=== PATIENT | female | born 1975 | race Caucasian/White ===

== ENCOUNTER 2023-07-27 15:26 | Emergency (ER) | payer OTHER, SELFPAY ==
--- NOTE | 2023-07-27 15:31 | ED_ITS ---
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 Patient did not have any tongue trauma, urinary or bowel incontinence, she states sometimes she feels this way when she is anxious. She denies chest pain, shortness of breath, fevers, chills, headache, vision changes, dizziness, weakness, nausea, vomiting, abdominal pain, changes in urination or bowel habits. Not suicidal or homicidal. Feels safe at home. Related Data Allergies Allergy/AdvReac Type Severity Reaction Status Date / Time Unable to Assess Allergy Unverified 07/27/23 15:26 Review of Systems 2 Review of Systems: Yes all other systems are reviewed and are negative PMFSH Past Medical History Attestation statement: The following information was validated with the patient. Source: old records reviewed and nursing notes reviewed Social History Social History Advance Directives: No Advance Directives Information Provided: No Physical Exam ED Vital Signs: Vital Signs - 24 hr 07/27/23 15:37 Temperature 98.6 F Pulse Rate 75 Respiratory Rate 18 Blood Pressure 118/66 Pulse Oximetry 98 Oxygen Delivery Method Room Air BMI result Body Mass Index 37.2 vss Appearance: Alert.? Oriented X3.? No acute distress.? Head: Normocephalic, atraumatic, no step-offs or deformities Eyes: Pupils equal, round and reactive to light.? ENT: Pharynx normal.? Neck: Normal inspection.? Neck supple.? CVS: Normal heart rate and rhythm.? Pulses normal.? Respiratory: No respiratory distress.? Breath sounds normal.? Abdomen: Soft and nontender.? Skin: Skin warm and dry.? Normal skin color.? Normal skin turgor.? Extremities: No lower extremity edema.? No calf ttp. 5/5 strength to bilateral upper and lower extremities Neuro: Oriented X 3.? No motor deficit.? No sensory deficit. CN 2-12 intact Course Reevaluation(s) Reevaluation #1: CBC no acute findings requiring intervention. Chemistry no acute findings. Normal lactic. Normal CPK. Unlikely acute epileptic seizure. Beta hCG negative. There was no head trauma therefore no indication for head CT. Patient feeling well. No evidence of seizures while here in the department. Patient states she is likely anxious Educated patient on diagnosis and treatment plan, answered all question, patient verbalizes understanding. At this time patient will be discharged home, advised to return with new or worsening symptoms. Educated on worrisome signs and symptoms and when to return. At this time I feel comfortable discharge home. Time: 17:15 Medications Administered Discontinued Medications Generic Name Dose Route Start Last Admin Trade Name Freq PRN Reason Stop Dose Admin Lorazepam 1 mg 07/27/23 15:30 07/27/23 15:44 Lorazepam 1 Mg Tablet PO 07/27/23 15:31 1 mg ONCE ONE Administration Medical Decision Making Medical Decision Making [facility] Narrative: 47-year-old female presents with concerns that she could have had a pseudo- seizure. No trauma associated with it. No postictal state. Physical exam benign. Neuro nonfocal. Alert and oriented x4. Likely anxiety versus panic versus pseudo-seizure versus seizure. Unlikely intracranial hemorrhage, stroke, posterior stroke, electrolyte abnormalities, infection. Plan at this time labs. Ativan to raise seizure threshold. Differential Diagnosis Differential Diagnoses: The differential diagnosis associated with the presentation includes Likely anxiety versus panic versus pseudo-seizure versus seizure. Unlikely intracranial hemorrhage, stroke, posterior stroke, electrolyte abnormalities, infection. Admission/Observation Consideration of admission/observation: Escalation of care including admission/observation considered Lab Data [facility] Lab Attestation statement: I reviewed the patient's lab results. 07/27/23 16:06 07/27/23 16:06 Labs: Lab Results 07/27/23 Range/Units 16:06 WBC 5.4 (4.8-10.8) X10*3/uL RBC 4.24 (4.20-5.50) X10*6/uL Hgb 12.6 (12.0-16.0) g/dl Hct 36.8 L (37.0-47.0) % MCV 86.8 (80.0-98.0) fL MCH 29.7 (27.0-33.0) pg MCHC 34.2 (31.0-35.0) g/dl RDW 13.0 (11.0-16.0) % Plt Count 118 L (160-400) X10*3/uL MPV 11.3 (9.4-12.3) fL Immature Gran % (Auto) 0.4 (0.0-0.4) % Neut % (Auto) 57.2 (45-73) % Lymph % (Auto) 33.6 (20-40) % Sharkey % (Auto) 7.1 (2-11) % Eos % (Auto) 1.1 (0-4) % Baso % (Auto) 0.6 (0-2) % Lymph # (Auto) 1.8 (1.2-4.9) X10*3/uL Sharkey # (Auto) 0.4 (0.1-1.2) X10*3/uL Eos # (Auto) 0.1 (0.0-0.4) X10*3/uL Baso # (Auto) 0.0 (0.0-0.2) X10*3/uL Abs Immat Gran (auto) 0.02 (0.00-0.03) X10*3/uL Absolute Neuts (auto) 3.1 (2.0-8.3) x10*3/uL Absolute Nucleated RBC 0.000 (0.0-0.012) X10*3/uL Nucleated RBC % (auto) 0.0 (0.0-0.2) /100WBC Sodium 143 (135-145) mmol/L Potassium 4.1 (3.3-5.1) mmol/L Chloride 108 (96-108) mmol/L Carbon Dioxide 28 (22-29) mmol/L Anion Gap 11 L (12-20) BUN 12 (9-16) mg/dL Creatinine 0.75 (0.5-1.4) mg/dL Estim Creat Clear Calc 107.0 Estimated GFR > 60 Random Glucose 108 (60-115) mg/dL Lactic Acid 1.1 (0.5-2.0) mmol/L Calcium 9.2 (8.4-10.2) mg/dL Magnesium 1.8 (1.6-2.6) mg/dL Total Bilirubin 0.5 (0.0-1.0) mg/dL AST 19 (5-31) U/L ALT 19 (0-31) U/L Alkaline Phosphatase 77 (39-117) U/L Total Creatine Kinase 63 (26-140) U/L Total Protein 6.6 (6.5-8.0) g/dL Albumin 3.8 (3.5-5.0) g/dL Lipase 33 (8-78) U/L Beta HCG, Quant < 2 mIU/mL Tests considered The following testing was considered but not selected: No associated trauma no indication for head CT peer Chronic Conditions Patient?s care impacted by: Other (Anxiety) Critical Care Time Critical Care Time Critical Care Time: No Discharge Plan Discharge Clinical Impression: Anxiety, Psychogenic nonepileptic seizure Patient Disposition: Home, Self-Care Instructions: Anxiety (ED) Additional Instructions: Take your medications as prescribed. If you were prescribed antibiotics today, it is important that you take your medication to their entirety, do not skip any doses, do not finish them early. Follow-up with your primary care provider this week. Return to the emergency department with new or worsening symptoms. Such as fevers, chills, chest pain, shortness of breath, nausea, vomiting, dizziness, headache, vision changes, lethargy In case of emergency call 911 Referrals: Physician,None [Primary Care Provider] - 2 days [facility] [place]Provider Group] - 2 days Stand Alone Forms: Work/School Release
[2023-07-27 15:37] VITALS: BP 118/66; BP 128/76; PULSE 75; PULSE 78; RESP 18; TEMP 37; O2SAT 97; O2SAT 98; BMI 37.2
[2023-07-27] MEDS: LORazepam 1 MG TABLET PO (15:44)
[2023-07-27 16:10] LABS: MANUAL DIFF FLAG NO
[2023-07-27 16:14] LABS: Basophils Percent Auto 0.6 % (0-2); Eosinophils Absolute Auto 0.1 X10*3/uL (0.0-0.4); Eosinophils Percent Auto 1.1 % (0-4); Hematocrit 36.8 % (37.0-47.0); Hemoglobin 12.6 g/dl (12.0-16.0); Imm Gran Abs Auto 0.02 X10*3/uL (0.00-0.03); Imm Gran Pct Auto 0.4 % (0.0-0.4); Lymphocytes Absolute Auto 1.8 X10*3/uL (1.2-4.9); Lymphocytes Percent Auto 33.6 % (20-40); Mean Corpuscular HGB Conc 34.2 g/dl (31.0-35.0); Mean Corpuscular Hemoglobin 29.7 pg (27.0-33.0); Mean Corpuscular Volume 86.8 fL (80.0-98.0); Mean Platelet Volume 11.3 fL (9.4-12.3); Monocytes Absolute Auto 0.4 X10*3/uL (0.1-1.2); Monocytes Percent Auto 7.1 % (2-11); Neutrophils Absolute Auto 3.1 x10*3/uL (2.0-8.3); Neutrophils Percent Auto 57.2 % (45-73); Platelet Count 118 X10*3/uL (160-400); Red Blood Count 4.24 X10*6/uL (4.20-5.50); White Blood Count 5.4 X10*3/uL (4.8-10.8)
[2023-07-27 16:21] LABS: Lactic Acid 1.1 mmol/L (0.5-2.0)
[2023-07-27 16:32] LABS: Alanine Aminotransferase 19 U/L (0-31); Albumin Level 3.8 g/dL (3.5-5.0); Alkaline Phosphatase 77 U/L (39-117); Anion Gap 11 (12-20); Aspartate Amino Transferase 19 U/L (5-31); Bilirubin Total 0.5 mg/dL (0.0-1.0); Blood Urea Nitrogen 12 mg/dL (9-16); Calcium 9.2 mg/dL (8.4-10.2); Carbon Dioxide 28 mmol/L (22-29); Chloride 108 mmol/L (96-108); Estimated Glomerular Filt Rate > 60; Glucose Random 108 mg/dL (60-115); Lipase 33 U/L (8-78); Magnesium 1.8 mg/dL (1.6-2.6); Potassium 4.1 mmol/L (3.3-5.1); Sodium 143 mmol/L (135-145); Total Protein 6.6 g/dL (6.5-8.0)
[2023-07-27 16:33] LABS: HCG Quantitative < 2 mIU/mL
== END 2023-07-27 18:01 | disposition home or self-care (01) ==
PROVIDERS: Physician Assistant; Emergency Provider Emergency Medicine
DX: R56.9 Unspecified convulsions (principal); F41.9 Anxiety disorder, unspecified
CPT/HCPCS: 36415; 80053; 82550; 83605; 83690; 83735; 84702; 85025; 99282; 99283

== ENCOUNTER 2023-08-29 23:49 | Emergency (ER) | payer SELFPAY ==
--- NOTE | ~2023-08-29 | XR_ITS ---
EXAMINATION: XR FOOT, LEFT CLINICAL INFORMATION: Left foot COMPARISON: None available. TECHNIQUE: AP, lateral, and oblique views of the left foot. FINDINGS: No fractures are seen. Some mild degenerative changes are present at the TMT joints. No ankle joint effusion is seen. A small plantar calcaneal spur is present. XR/XR foot LT 2V IMPRESSION: Mild degenerative changes as described above. No acute finding.
[2023-08-29 23:58] VITALS: BP 132/65; PULSE 94; RESP 16; TEMP 36.6; O2SAT 95; BMI 33.3
--- NOTE | 2023-08-30 | ECG_ITS ---
Test Reason : CESTPAIN Blood Pressure : / mmHG Vent. Rate : 069 BPM Atrial Rate : 069 BPM P-R Int : 120 ms QRS Dur : 096 ms QT Int : 424 ms P-R-T Axes : -03 005 007 degrees QTc Int : 454 ms Normal sinus rhythm Normal ECG No previous ECGs available Referred By: Generic ED Physician Electronically Signed By:LAURE BURNETT MD
--- NOTE | 2023-08-30 01:41 | ED.GENADULT ---
HPI - General Adult General Chief complaint: General Medical Stated complaint: L Foot pain/?Anxiety Time Seen by Provider: 08/30/23 01:21 Source: patient Mode of arrival: ambulatory Limitations: no limitations History of Present Illness HPI narrative: Patient with history of minor fracture left foot in 05/19 since then she been complaining of pain also patient has increased stress as her has to go to [facility] months no recent fall or injury Related Data Previous Rx's Medication Instructions Recorded ibuprofen 600 mg tablet 600 mg PO Q6H PRN fever or pain 08/30/23 #30 tabs prednisone 20 mg tablet 40 mg (2 x 20 mg) PO DAILY #10 tabs 08/30/23 Allergies Allergy/AdvReac Type Severity Reaction Status Date / Time seafood Allergy Anaphylaxis Verified 08/29/23 23:57 Review of Systems Review of Systems: Yes all other systems are reviewed and are negative [facility] Social History Social History Advance Directives: No Advance Directives Information Provided: No Physical Exam ED Vital Signs: Vital Signs - 24 hr 08/29/23 23:58 Temperature 98 F Pulse Rate 94 Respiratory Rate 16 Blood Pressure 132/65 Pulse Oximetry 95 Oxygen Delivery Method Room Air BMI result Body Mass Index 33.3 Appearance: Alert. Oriented X3. No acute distress. Neck: Normal inspection. Neck supple. CVS: Normal heart rate and rhythm. Pulses normal. Respiratory: No respiratory distress. Equal air entry bilateral, Abdomen: Soft and nontender. Bowel sounds are present, Skin: Skin warm and dry. Normal skin color. Normal skin turgor. Extremities: No lower extremity edema. No calf tenderness Neuro: Oriented X 3. No motor deficit. Extrem Ankle/foot/toe images: 1. Tenderness at the base clinically plantar fasciitis Medical Decision Making Medical Decision Making MDM Narrative: Patient's x-ray negative fracture clinically patient has plantar fasciitis advised to do stretching exercise of the plantar fascia will give course of prednisone and ibuprofen advised to follow with orthopedic if pain does not get better patient refused to get the injection at the site of pain x-ray negative for fracture Independent Interpretation I performed an independent interpretation of an: Plain X-Ray Radiology Impression Discussion of test interpretation with radiology: I have reviewed the radiologist's reading. Discharge Plan Discharge Clinical Impression: Plantar fasciitis of left foot Patient Disposition: Home, Self-Care Instructions: Plantar Fasciitis (ED) Additional Instructions: Plantar stretching exercise as advised Pain medication and prednisone as prescribed Follow-up with orthopedics if not better Prescriptions: New prednisone 20 mg tablet 40 mg PO DAILY Qty: 10 0RF ibuprofen 600 mg tablet 600 mg PO Q6H PRN (Reason: fever or pain) Qty: 30 0RF Referrals: Darrell Land MD [Physician] - 2 weeks
[2023-08-30 02:12] VITALS: BP 107/60; PULSE 56; RESP 17; TEMP 36.6; O2SAT 98
[2023-08-30] MEDS: Ibuprofen 600 MG TABLET PO (02:14)
[2023-08-30] MEDS: dexAMETHasone 2 MG TABLET 10 MG PO (02:14)
[2023-08-30 02:35] VITALS: BP 107/60; PULSE 56; RESP 17; TEMP 36.6; O2SAT 98
== END 2023-08-30 02:35 | disposition home or self-care (01) ==
PROVIDERS: Emergency Provider Internal Medicine
DX: M72.2 Plantar fascial fibromatosis (principal); M79.672 Pain in left foot; F41.1 Generalized anxiety disorder; F43.0 Acute stress reaction; R07.89 Other chest pain
CPT/HCPCS: 73620; 93005; 99283; 99285; J8540

== ENCOUNTER → 2023-08-30 00:02 | Outpatient (BNV) | payer SELFPAY | PROVIDERS: Emergency Provider Internal Medicine; Visit Provider Internal Medicine Cardiovascular Disease | DX: R07.9 Chest pain, unspecified (principal) | CPT/HCPCS: 93010 ==

== ENCOUNTER 2023-09-08 17:20 | Emergency (ER) | payer MEDICAID, SELFPAY ==
--- NOTE | ~2023-09-08 | US_ITS ---
EXAMINATION: US ABDOMEN LIMITED CLINICAL INFORMATION: Epigastric pain.. COMPARISON: None available. TECHNIQUE: Real-time imaging of the right upper quadrant abdominal viscera. FINDINGS: PANCREAS: Normal. LIVER: Normal. The liver is normal in size. The liver contour is normal. Parenchymal echogenicity is normal relative to the adjacent kidney. No focal hepatic lesion. There is no intrahepatic biliary duct dilatation seen. GALLBLADDER: Normal. The gallbladder is physiologically distended without evidence of stones, sludge, polyps, wall thickening or pericholecystic fluid. COMMON BILE DUCT: Normal in caliber measuring 0.3 cm in diameter. RIGHT KIDNEY: Normal. No hydronephrosis. No renal calculi or focal parenchymal lesions. The kidney measures 9.5 cm in maximum dimension. FREE FLUID: None. US/US abdomen limited IMPRESSION: No acute sonographic abnormalities in the right upper quadrant.
[2023-09-08 18:06] VITALS: BP 124/68; PULSE 77; RESP 16; TEMP 36.6; O2SAT 98; BMI 33.3
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
--- NOTE | 2023-09-08 18:21 | ECG_ITS ---
Test Reason : EPIGASTRIC Blood Pressure : / mmHG Vent. Rate : 061 BPM Atrial Rate : 061 BPM P-R Int : 136 ms QRS Dur : 088 ms QT Int : 412 ms P-R-T Axes : 012 000 003 degrees QTc Int : 414 ms Normal sinus rhythm Normal ECG When compared with ECG of 30-AUG-2023 00:02, No significant change was found Referred By: Tran Reilly Electronically Signed By:Fernie Head
[2023-09-08 18:50] LABS: MANUAL DIFF FLAG NO
[2023-09-08 18:56] LABS: Appearance Urine Cloudy; Color Urine Yellow; Glucose Urine UA Negative (Negative); Leukocyte Esterase Urine Small (1+) (Negative); Nitrite Urine Negative (Negative); PH 5.5 (5.0-9.0); UMIC TRIGGER UACC YES; Urine Blood Negative (Negative); Urine Ketones Negative (Negative); Urine Protein Negative (Neg-Trace)
[2023-09-08 19:01] LABS: Bacteria Urine 4+ (None Seen); Hyaline Casts Urine 0-2 /LPF (0-2); RBC Urine 0-2 /HPF (0-2); UACC Culture Trigger YES
[2023-09-08 19:04] LABS: Basophils Percent Auto 0.6 % (0-2); Eosinophils Absolute Auto 0.1 X10*3/uL (0.0-0.4); Eosinophils Percent Auto 1.4 % (0-4); Hematocrit 37.6 % (37.0-47.0); Hemoglobin 13.3 g/dl (12.0-16.0); Imm Gran Abs Auto 0.02 X10*3/uL (0.00-0.03); Imm Gran Pct Auto 0.3 % (0.0-0.4); Lymphocytes Absolute Auto 2.2 X10*3/uL (1.2-4.9); Lymphocytes Percent Auto 33.6 % (20-40); Mean Corpuscular HGB Conc 35.4 g/dl (31.0-35.0); Mean Corpuscular Hemoglobin 30.2 pg (27.0-33.0); Mean Corpuscular Volume 85.5 fL (80.0-98.0); Mean Platelet Volume 10.9 fL (9.4-12.3); Monocytes Absolute Auto 0.5 X10*3/uL (0.1-1.2); Monocytes Percent Auto 6.9 % (2-11); Neutrophils Absolute Auto 3.8 x10*3/uL (2.0-8.3); Neutrophils Percent Auto 57.2 % (45-73); Platelet Count 152 X10*3/uL (160-400); Red Cell Distribution Width 12.7 % (11.0-16.0); White Blood Count 6.6 X10*3/uL (4.8-10.8)
[2023-09-08 19:14] LABS: Lactic Acid 0.7 mmol/L (0.5-2.0)
[2023-09-08 19:18] LABS: Ethanol < 10 mg/dL
[2023-09-08 19:25] LABS: Alanine Aminotransferase 16 U/L (0-31); Albumin Level 4.1 g/dL (3.5-5.0); Alkaline Phosphatase 73 U/L (39-117); Anion Gap 13 (12-20); Aspartate Amino Transferase 22 U/L (5-31); Bilirubin Direct 0.2 mg/dL (0.0-0.5); Bilirubin Total 0.5 mg/dL (0.0-1.0); Blood Urea Nitrogen 13 mg/dL (9-16); Calcium 9.8 mg/dL (8.4-10.2); Carbon Dioxide 23 mmol/L (22-29); Chloride 108 mmol/L (96-108); Creatinine Clr Calc Pharmacy 94.6; Estimated Glomerular Filt Rate > 60; Glucose Random 94 mg/dL (60-115); Lipase 43 U/L (8-78); Magnesium 2.1 mg/dL (1.6-2.6); Potassium 3.9 mmol/L (3.3-5.1); Sodium 140 mmol/L (135-145); Total Protein 7.1 g/dL (6.5-8.0)
[2023-09-08 19:46] LABS: HCG Quantitative < 2 mIU/mL
[2023-09-08 20:44] VITALS: BP 103/46; PULSE 63; RESP 18; TEMP 36.6; O2SAT 98
[2023-09-08] MEDS: levETIRAcetam 500 MG TABLET PO (22:31)
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
[2023-09-08 23:02] VITALS: BP 109/54; PULSE 61; RESP 12; TEMP 36.4; O2SAT 98
[2023-09-09 05:25] VITALS: BP 93/52; PULSE 54; RESP 14; TEMP 36.6; O2SAT 99
[2023-09-09] MEDS: levETIRAcetam 500 MG TABLET PO (09:11)
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
[2023-09-09 09:28] VITALS: BP 106/72; PULSE 62; RESP 16; TEMP 36.6; O2SAT 97
== END 2023-09-09 09:29 | disposition home or self-care (01) ==
PROVIDERS: Physician Assistant Medical; Emergency Provider Emergency Medicine
DX: R56.9 Unspecified convulsions (principal); R10.9 Unspecified abdominal pain; R10.13 Epigastric pain; Z79.899 Other long term (current) drug therapy; Z59.00 Homelessness unspecified; Z91.148 Patient's other noncompliance with medication regimen for other reason
CPT/HCPCS: 36415; 76705; 80048; 80076; 80307; 81001; 83605; 83690; 83735; 84702; 85025; 87086; 93005; 99284

== ENCOUNTER → 2023-09-08 18:21 | Outpatient (BNV) | payer MEDICAID, SELFPAY | PROVIDERS: Emergency Provider Emergency Medicine; Visit Provider Internal Medicine Cardiovascular Disease | DX: R10.13 Epigastric pain (principal) | CPT/HCPCS: 93010 ==

== ENCOUNTER 2023-09-24 20:49 | Emergency (ER) | payer MEDICAID, SELFPAY ==
--- NOTE | ~2023-09-24 | CT_ITS ---
EXAMINATION: CT ABDOMEN AND PELVIS WITH CONTRAST CLINICAL INFORMATION: Diarrhea, severe lower abdominal pain COMPARISON: Abdominal ultrasound 09/08/2023 TECHNIQUE: Multidetector volumetric images were obtained from the superior aspect of the liver through the pubic symphysis following administration 85 mL of Omnipaque 350 intravenous contrast. Sagittal and coronal reformatted images were obtained on the technologist's workstation. Oral contrast: No This CT examination was performed using dose optimization techniques as appropriate, variously including the following: *Automated exposure control *Adjustment of mA and/or kV according to patient size (this includes techniques or standardized protocols for targeted exams where dose is matched to indication/reason for exam; i.e. extremities or head) *Use of iterative reconstruction technique DLP: 807 mGy-cm FINDINGS: LUNG BASES: The visualized lung bases are unremarkable. LIVER, GALLBLADDER, AND BILIARY TREE: The liver is normal in size, shape, and attenuation. No focal hepatic lesion or biliary ductal dilatation is present. The gallbladder is unremarkable with no evidence of radiopaque gallstones, gallbladder wall thickening, or obvious pericholecystic inflammatory changes. PANCREAS: Unremarkable. SPLEEN: Borderline enlarged. ADRENAL GLANDS: Unremarkable. KIDNEYS AND URETERS: Bilateral nephrograms are symmetric. No hydronephrosis or obstructing calculus identified. Small hypoattenuating right renal foci are too small to characterize, suggestive of cysts. BLADDER: Mildly distended and suboptimally assessed. GASTROINTESTINAL TRACT: No evidence of bowel obstruction or significant wall thickening. The appendix is unremarkable. No free fluid or free air is seen. ABDOMINAL WALL: Fat-containing umbilical hernia. LYMPH NODES: There is mild stranding in the central abdominal mesentery in association with subcentimeter lymph nodes, suggesting sclerosing mesenteritis. VASCULAR: Unremarkable. PELVIC VISCERA: Unremarkable. OSSEOUS STRUCTURES: Degenerative disc disease at L4-L5 and L5-S1. Facet arthropathy of the lumbar spine. Mild scattered endplate osteophytes. CT/CT abdomen pelvis w IV con IMPRESSION: 1. Mild stranding in the central abdominal mesentery in association with small lymph nodes, suggesting sclerosing mesenteritis. The possibility of an early lymphoproliferative disorder is difficult to entirely exclude, and without prior studies for comparison a follow-up CT in 6-9 months is recommended to assess for stability. 2. Borderline splenomegaly. 3. Fat-containing umbilical hernia.
[2023-09-24 21:13] VITALS: BP 111/58; PULSE 78; RESP 17; TEMP 36.7; O2SAT 99; BMI 33.4
[2023-09-24 21:29] LABS: MANUAL DIFF FLAG NO
[2023-09-24 21:37] LABS: Basophils Percent Auto 0.7 % (0-2); Eosinophils Absolute Auto 0.2 X10*3/uL (0.0-0.4); Eosinophils Percent Auto 3.7 % (0-4); Hemoglobin 13.8 g/dl (12.0-16.0); Imm Gran Abs Auto 0.01 X10*3/uL (0.00-0.03); Imm Gran Pct Auto 0.2 % (0.0-0.4); Lymphocytes Percent Auto 35.7 % (20-40); Mean Corpuscular HGB Conc 34.5 g/dl (31.0-35.0); Mean Corpuscular Hemoglobin 30.4 pg (27.0-33.0); Mean Corpuscular Volume 88.1 fL (80.0-98.0); Mean Platelet Volume 10.6 fL (9.4-12.3); Monocytes Absolute Auto 0.6 X10*3/uL (0.1-1.2); Monocytes Percent Auto 11.1 % (2-11); Neutrophils Absolute Auto 2.8 x10*3/uL (2.0-8.3); Neutrophils Percent Auto 48.6 % (45-73); Platelet Count 142 X10*3/uL (160-400); Red Blood Count 4.54 X10*6/uL (4.20-5.50); Red Cell Distribution Width 12.8 % (11.0-16.0); White Blood Count 5.7 X10*3/uL (4.8-10.8)
[2023-09-24 21:45] LABS: Alanine Aminotransferase 18 U/L (0-31); Albumin Level 4.3 g/dL (3.5-5.0); Alkaline Phosphatase 86 U/L (39-117); Anion Gap 15 (12-20); Aspartate Amino Transferase 25 U/L (5-31); Bilirubin Total 0.5 mg/dL (0.0-1.0); Blood Urea Nitrogen 16 mg/dL (9-16); Calcium 9.5 mg/dL (8.4-10.2); Carbon Dioxide 23 mmol/L (22-29); Chloride 106 mmol/L (96-108); Creatinine Clr Calc Pharmacy 86.2; Estimated Glomerular Filt Rate > 60; Glucose Random 101 mg/dL (60-115); Lipase 43 U/L (8-78); Potassium 4.1 mmol/L (3.3-5.1); Sodium 140 mmol/L (135-145); Total Protein 7.8 g/dL (6.5-8.0)
--- NOTE | 2023-09-25 00:29 | ED_ITS ---
HPI - Abdominal Pain General Chief Complaint: Abdominal Pain Stated Complaint: Abdominal Pain Time Seen by Provider: 09/24/23 23:57 Source: patient and old records reviewed Mode of arrival: ambulatory Limitations: no limitations History of Present Illness HPI narrative: 47 yo female with PMH of seizures on keppra, PTSD, she lives in a tent, here with c/o 1 day of diarrhea and lower abdominal pain denies sick contacts and antibiotic use. She has not had this before no hx of diverticulitis, colitis. MD elicited complaint: abdominal pain Pertinent past history: none Onset (ago): day(s) (1) Pain Consistency: constant Location: RLQ and LLQ Severity: moderate Quality: cramping Radiation: none Migration to: no migration Exacerbating factors: eating and movement Relieving factors: nothing Associated symptoms: diarrhea Related Data Previous Rx's ?Medication ?Instructions ?Recorded ibuprofen 600 mg tablet 600 mg PO Q6H PRN fever or pain 08/30/23 #30 tabs prednisone 20 mg tablet 40 mg (2 x 20 mg) PO DAILY #10 tabs 08/30/23 levetiracetam 500 mg tablet 500 mg PO BID #60 tabs 09/08/23 (Keppra) Allergies Allergy/AdvReac Type Severity Reaction Status Date / Time seafood Allergy Anaphylaxis Verified 09/24/23 21:15 Review of Systems Review of Systems Constitutional : No Weight loss, No Fever, No Chills ENT/Mouth : No sore throat, No Rhinorrhea Eyes: No Swelling, No Redness Cardiovascular : No Chest Pain, No SOB, NoEdema Respiratory : No Cough, No Sputum, No Wheezing Gastrointestinal : no Nausea, no Vomiting, positive Diarrhea, positive abdominal Pain, No Hematochezia, No Melena Genitourinary : No Dysuria, No Urinary Frequency, No Hematuria, No Urgency Musculoskeletal : No joint pain, No Myalgias, No Joint Swelling Skin : No Skin Lesions, No rash Neuro : No Weakness, No Numbness, No Dizziness, No Headache Psych : No Anxiety/Panic, No Depression All other systems reviewed and are negative. [facility] Past Medical History Attestation statement: The following information was validated with the patient. Source: old records reviewed Medical History Miscarriage Seizure Social History Social History (Reviewed 09/25/23 @ 00:32 by CALLUM Odom Alcohol intake: never Advance Directives: No Advance Directives Information Provided: No Do you have a plan to hurt others: No Plan Physical Exam ED Vital Signs: Vital Signs - 24 hr 09/24/23 21:13 Temperature 98.0 F Pulse Rate 78 Respiratory Rate 17 Blood Pressure 111/58 L Pulse Oximetry 99 Oxygen Delivery Method Room Air BMI result Body Mass Index 33.4 Appearance: Alert. Oriented X3. No acute distress. Eyes: Pupils equal, round and reactive to light. ENT: Pharynx normal. Neck: Normal inspection. Neck supple. CVS: Normal heart rate and rhythm. Pulses normal. Respiratory: No respiratory distress. Breath sounds normal. Abdomen: Soft and moderate lower abdominal ttp Skin: Skin warm and dry. Normal skin color. Normal skin turgor. Extremities: No lower extremity edema. No calf ttp Neuro: Oriented X 3. No motor deficit. No sensory deficit. Medical Decision Making Medical Decision Making [facility] Narrative: 47 yo female with PMH of seizures on keppra, PTSD here with c/o lower abdominal pain x 1 day along with diarrhea but no known exposures at this time will need basic labs UA, CT scan for colitis/diverticulitis Differential Diagnosis Differential Diagnoses: The differential diagnosis associated with the presentation includes UTI, diverticulitis, colitis Admission/Observation Consideration of admission/observation: Escalation of care including admission/observation considered inflammatory condition no vomiting resting comfortable can be managed as outpatient Lab Data [facility] Lab Attestation statement: I reviewed the patient's lab results. 09/24/23 21:25 09/24/23 21:25 Labs: Lab Results 09/24/23 09/25/23 Range/Units 21:25 00:40 WBC 5.7 (4.8-10.8) X10*3/uL RBC 4.54 (4.20-5.50) X10*6/uL Hgb 13.8 (12.0-16.0) g/dl Hct 40.0 (37.0-47.0) % MCV 88.1 (80.0-98.0) fL MCH 30.4 (27.0-33.0) pg MCHC 34.5 (31.0-35.0) g/dl RDW 12.8 (11.0-16.0) % Plt Count 142 L (160-400) X10*3/uL MPV 10.6 (9.4-12.3) fL Immature Gran % (Auto) 0.2 (0.0-0.4) % Neut % (Auto) 48.6 (45-73) % Lymph % (Auto) 35.7 (20-40) % [place] % (Auto) 11.1 H (2-11) % Eos % (Auto) 3.7 (0-4) % Baso % (Auto) 0.7 (0-2) % Lymph # (Auto) 2.0 (1.2-4.9) X10*3/uL [place] # (Auto) 0.6 (0.1-1.2) X10*3/uL Eos # (Auto) 0.2 (0.0-0.4) X10*3/uL Baso # (Auto) 0.0 (0.0-0.2) X10*3/uL Abs Immat Gran (auto) 0.01 (0.00-0.03) X10*3/uL Absolute Neuts (auto) 2.8 (2.0-8.3) x10*3/uL Absolute Nucleated RBC 0.000 (0.0-0.012) X10*3/uL Nucleated RBC % (auto) 0.0 (0.0-0.2) /100WBC Sodium 140 (135-145) mmol/L Potassium 4.1 (3.3-5.1) mmol/L Chloride 106 (96-108) mmol/L Carbon Dioxide 23 (22-29) mmol/L Anion Gap 15 (12-20) BUN 16 (9-16) mg/dL Creatinine 0.88 (0.5-1.4) mg/dL Estim Creat Clear Calc 86.2 Estimated GFR > 60 Random Glucose 101 (60-115) mg/dL Calcium 9.5 (8.4-10.2) mg/dL Total Bilirubin 0.5 (0.0-1.0) mg/dL AST 25 (5-31) U/L ALT 18 (0-31) U/L Alkaline Phosphatase 86 (39-117) U/L Total Protein 7.8 (6.5-8.0) g/dL Albumin 4.3 (3.5-5.0) g/dL Lipase 43 (8-78) U/L Urine Color Yellow Urine Appearance Clear Urine pH 7.0 (5.0-9.0) Ur Specific [place] 1.025 (1.005-1.025) Urine Protein Negative (Neg-Trace) mg/dL Urine Glucose (UA) Negative (Negative) mg/dL Urine Ketones Negative (Negative) mg/dL Urine Blood Negative (Negative) Urine Nitrite Negative (Negative) Ur Leukocyte Esterase Trace H (Negative) Urine RBC 0-2 (0-2) /HPF Urine WBC 0-5 (0-5) /HPF Ur Squamous Epith Cells 0-2 (0-2) /HPF Urine Bacteria None Seen (None Seen) Hyaline Casts 0-2 (0-2) /LPF Urine Test NEGATIVE (NEGATIVE) Independent Interpretation I performed an independent interpretation of an: CT Scan (mesentery inflammation) Radiology Impression Discussion of test interpretation with radiology: I have reviewed the radiologist's reading. External Record Review External record reviewed: Inpatient record Prescription Management I considered prescription management with: Other Medications Administered Discontinued Medications Generic Name Dose Route Start Last Admin Trade Name Ayaka PRN Reason Stop Dose Admin Sodium Chloride 1,000 mls @ 999 mls/hr 09/25/23 00:30 09/25/23 00:56 Ns IV 09/25/23 01:30 999 mls/hr .Q1H1M ANA Administration Iohexol 85 ml 09/25/23 01:14 09/25/23 01:18 Iohexol 350 Mg/Ml 100 Ml Infus..Btl IV 09/25/23 01:15 85 ml ONCE ONE Administration Ketorolac Tromethamine 15 mg 09/25/23 00:26 09/25/23 00:57 Ketorolac Tromethamine 15 Mg/Ml Vial IVPUSH 09/25/23 00:27 15 mg ONCE ONE Administration Discharge Plan Discharge Clinical Impression: Abdominal pain Qualifiers: Abdominal location: lower abdomen, unspecified Qualified Code(s): R10.30 - Lower abdominal pain, unspecified Patient Disposition: Home, Self-Care Instructions: Abdominal Pain (ED) Additional Instructions: return for worsening symptoms, fevers, pain, or any other concerns your CT scan shows inflammation of the mesentery which needs follow up and repeat imaging in 6 months this is usually self limited but should be monitored Prescriptions: No Action prednisone 20 mg tablet 40 mg PO DAILY Qty: 10 0RF ibuprofen 600 mg tablet 600 mg PO Q6H PRN (Reason: fever or pain) Qty: 30 0RF levetiracetam [Keppra] 500 mg tablet 500 mg PO BID Qty: 60 2RF Print Language: German
[2023-09-25 00:47] LABS: Appearance Urine Clear; Color Urine Yellow; Glucose Urine UA Negative (Negative); Leukocyte Esterase Urine Trace (Negative); Nitrite Urine Negative (Negative); Specific Gravity - Urine 1.025 (1.005-1.025); UMIC TRIGGER UACC YES; Urine Blood Negative (Negative); Urine Ketones Negative (Negative); Urine Protein Negative (Neg-Trace)
[2023-09-25 00:49] LABS: UPreg QC Valid YES; Urine Pregnancy NEGATIVE (NEGATIVE)
[2023-09-25 00:52] LABS: Bacteria Urine None Seen (None Seen); Hyaline Casts Urine 0-2 /LPF (0-2); RBC Urine 0-2 /HPF (0-2); Squamous Epithelial Cell Urine 0-2 /HPF (0-2); WBC Urine 0-5 /HPF (0-5)
[2023-09-25] MEDS: 0.9 % Sodium Chloride 1,000 ML 999 ML IV (00:56)
[2023-09-25] MEDS: Ketorolac Tromethamine 15 MG/ML VIAL IVPUSH (00:57)
[2023-09-25] MEDS: iohexoL 350 MG/ML 100 ML INFUS..BTL 85 ML IV (01:18)
[2023-09-25 03:12] VITALS: BP 91/61; PULSE 51; RESP 16; TEMP 36.6; O2SAT 97
[2023-09-25 03:19] VITALS: BP 91/61; PULSE 51; RESP 16; TEMP 36.6; O2SAT 97
--- NOTE | 2023-09-25 03:29 | PC.NURSE ---
Pt discharged but at providers request pt to stay in the room. Pt is homeless and nowhere to go tonight.
== END 2023-09-25 08:24 | disposition home or self-care (01) ==
PROVIDERS: Emergency Provider Emergency Medicine
DX: R10.30 Lower abdominal pain, unspecified (principal); R10.31 Right lower quadrant pain; R25.2 Cramp and spasm; R11.2 Nausea with vomiting, unspecified; Z79.899 Other long term (current) drug therapy; Z51.81 Encounter for therapeutic drug level monitoring
CPT/HCPCS: 36415; 74177; 80053; 81001; 81025; 83690; 85025; 96361; 96374; 99284; J1885; Q9967

== ENCOUNTER 2023-10-03 19:48 | Emergency (ER) | payer MEDICAID, SELFPAY ==
--- NOTE | ~2023-10-03 | XR_ITS ---
RADIOGRAPH LEFT ANKLE AND LEFT FOOT CLINICAL HISTORY: Twisting injury. COMPARISON: Radiograph left foot 08/30/2023. TECHNIQUE: 2 views of the left ankle and 3 views of the left foot. FINDINGS: No acute fracture or subluxation. 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 Diffuse soft tissue swelling. No unexpected radiopaque foreign bodies. XR/XR foot LT min 3V IMPRESSION: 1. No acute fracture or subluxation. 2. 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
--- NOTE | ~2023-10-03 | XR_ITS ---
RADIOGRAPH LEFT ANKLE AND LEFT FOOT CLINICAL HISTORY: Twisting injury. COMPARISON: Radiograph left foot 08/30/2023. TECHNIQUE: 2 views of the left ankle and 3 views of the left foot. FINDINGS: No acute fracture or subluxation. 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 Diffuse soft tissue swelling. No unexpected radiopaque foreign bodies. XR/XR ankle LT min 3V IMPRESSION: 1. No acute fracture or subluxation. 2. 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
[2023-10-03 20:17] VITALS: BP 105/60; PULSE 78; RESP 20; TEMP 35.4; O2SAT 92; BMI 40.3
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
[2023-10-03 20:57] LABS: MANUAL DIFF FLAG NO
[2023-10-03 20:58] LABS: Basophils Percent Auto 0.4 % (0-2); Eosinophils Absolute Auto 0.2 X10*3/uL (0.0-0.4); Eosinophils Percent Auto 2.3 % (0-4); Hematocrit 38.9 % (37.0-47.0); Hemoglobin 13.5 g/dl (12.0-16.0); Imm Gran Abs Auto 0.02 X10*3/uL (0.00-0.03); Imm Gran Pct Auto 0.3 % (0.0-0.4); Lymphocytes Absolute Auto 3.3 X10*3/uL (1.2-4.9); Lymphocytes Percent Auto 41.5 % (20-40); Mean Corpuscular HGB Conc 34.7 g/dl (31.0-35.0); Mean Corpuscular Hemoglobin 30.5 pg (27.0-33.0); Mean Platelet Volume 10.7 fL (9.4-12.3); Monocytes Absolute Auto 0.5 X10*3/uL (0.1-1.2); Monocytes Percent Auto 6.1 % (2-11); Neutrophils Absolute Auto 3.9 x10*3/uL (2.0-8.3); Neutrophils Percent Auto 49.4 % (45-73); Platelet Count 182 X10*3/uL (160-400); Red Blood Count 4.42 X10*6/uL (4.20-5.50); Red Cell Distribution Width 12.7 % (11.0-16.0); White Blood Count 7.9 X10*3/uL (4.8-10.8)
[2023-10-03 21:20] LABS: Alanine Aminotransferase 17 U/L (0-31); Albumin Level 4.1 g/dL (3.5-5.0); Alkaline Phosphatase 82 U/L (39-117); Anion Gap 15 (12-20); Aspartate Amino Transferase 21 U/L (5-31); Bilirubin Total 0.5 mg/dL (0.0-1.0); Blood Urea Nitrogen 24 mg/dL (9-16); Carbon Dioxide 24 mmol/L (22-29); Chloride 109 mmol/L (96-108); Creatinine Clr Calc Pharmacy 107.3; Estimated Glomerular Filt Rate > 60; Glucose Random 97 mg/dL (60-115); Lipase 41 U/L (8-78); Potassium 3.9 mmol/L (3.3-5.1); Sodium 144 mmol/L (135-145); Total Protein 7.3 g/dL (6.5-8.0)
[2023-10-04 04:43] VITALS: BP 106/61; PULSE 51; RESP 18; TEMP 36.6; O2SAT 98
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
[2023-10-04 07:38] VITALS: BP 95/68; PULSE 59; RESP 18; TEMP 36.8; O2SAT 97
[2023-10-04] MEDS: levETIRAcetam 500 MG TABLET PO (07:52)
[2023-10-04] MEDS: Ibuprofen 600 MG TABLET PO (07:52)
[2023-10-04 08:00] VITALS: BP 95/68; PULSE 59; RESP 18; TEMP 36.8; O2SAT 97
== END 2023-10-04 08:01 | disposition home or self-care (01) ==
PROVIDERS: Physician Assistant Medical; Emergency Provider Emergency Medicine
DX: S93.402A Sprain of unspecified ligament of left ankle, initial encounter (principal); M25.572 Pain in left ankle and joints of left foot; R56.9 Unspecified convulsions; B36.8 Other specified superficial mycoses; M79.672 Pain in left foot; X50.1XXA Overexertion from prolonged static or awkward postures, initial encounter; Y93.9 Activity, unspecified; Y92.480 Sidewalk as the place of occurrence of the external cause; Y99.8 Other external cause status; Z59.00 Homelessness unspecified; Z79.899 Other long term (current) drug therapy
CPT/HCPCS: 36415; 73610; 73630; 80053; 83690; 83735; 85025; 99284

== ENCOUNTER 2023-10-14 11:26 | Emergency (ER) | payer MEDICAID, SELFPAY ==
--- NOTE | ~2023-10-14 | XR_ITS ---
EXAMINATION: XR SOFT TISSUE NECK CLINICAL INDICATION: Pain with swallowing COMPARISON: None available. TECHNIQUE: 2 views of the soft tissue neck were obtained. FINDINGS: Soft tissue films of the neck demonstrate a normal larynx, pharynx and upper trachea. No prevertebral soft tissue swelling or radiopaque foreign body is demonstrated. XR/XR soft tissue neck IMPRESSION: Unremarkable soft tissue neck radiographs. No radiopaque foreign body identified.
[2023-10-14 11:35] VITALS: BP 119/72; PULSE 93; RESP 20; TEMP 36.1; O2SAT 96; BMI 37.6
--- NOTE | 2023-10-14 11:35 | ED_ITS ---
HPI - General Adult General Chief complaint: General Medical Stated complaint: lump in throat, pain when eating Time Seen by Provider: 10/14/23 13:05 Source: patient Mode of arrival: ambulatory Limitations: no limitations History of Present Illness ED Provider: Jay WILLIAM HPI narrative: This is a 47-year-old female history of epilepsy presenting to the emergency department with concerns of ?lump in throat?, and burning to throat for the past 6 days. Patient reports pain and discomfort worse with swallowing better when she has not swallowing. He has been eating and drinking without difficulty however states sometimes it is bothersome. Denies sick contacts. Denies fevers, chills, chest pain, shortness breath, nausea, vomiting, abdominal pain, cough, headache, vision changes, dizziness and weakness. Related Data Previous Rx's ?Medication ?Instructions ?Recorded ibuprofen 600 mg tablet 600 mg PO Q6H PRN fever or pain 08/30/23 #30 tabs prednisone 20 mg tablet 40 mg (2 x 20 mg) PO DAILY #10 tabs 08/30/23 levetiracetam 500 mg tablet 500 mg PO BID #60 tabs 09/08/23 (Keppra) levetiracetam 500 mg tablet 500 mg PO BID #60 tabs 10/04/23 nystatin 100,000 unit/gram topical 1 appl topical BID #15 grams 10/04/23 powder (Klayesta) amoxicillin 875 mg-potassium 1 tab PO BID 7 days #14 tabs 10/14/23 clavulanate 125 mg tablet Allergies Allergy/AdvReac Type Severity Reaction Status Date / Time seafood Allergy Anaphylaxis Verified 10/14/23 11:37 Review of Systems Review of Systems: Yes all other systems are reviewed and are negative [facility] Past Medical History Attestation statement: The following information was validated with the patient. Source: old records reviewed and nursing notes reviewed Medical History Miscarriage Seizure Social History Social History Alcohol intake: never Advance Directives: No Advance Directives Information Provided: No Physical Exam ED Vital Signs: Vital Signs - 24 hr 10/14/23 11:35 10/14/23 13:25 Temperature 96.9 F 97.6 F Pulse Rate 93 90 Respiratory Rate 20 18 Blood Pressure 119/72 122/76 Pulse Oximetry 96 96 Oxygen Delivery Method Room Air Room Air BMI result Body Mass Index 37.6 vss Appearance: Alert.? Oriented X3.? No acute distress.? Head: Normocephalic, atraumatic, no step-offs or deformities Eyes: Pupils equal, round and reactive to light.? ENT: Pharynx w/ errythema to posterior pharynx, no edema or abscess. Speaking in full sentences controlling secretions well.??External ears normal, TMs normal bilaterally and EAC's normal. No pain with manipulation of external ears bilaterally. No mastoid tenderness. Neck: Normal inspection.? Neck supple.? CVS: Normal heart rate and rhythm.? Pulses normal.? Respiratory: No respiratory distress.? Breath sounds normal.? Abdomen: Soft and nontender.? Skin: Skin warm and dry.? Normal skin color.? Normal skin turgor.? Extremities: No lower extremity edema.? No calf ttp. 5/5 strength to bilateral upper and lower extremities Neuro: Oriented X 3.? No motor deficit.? No sensory deficit. CN 2-12 intact Course Course Course Narrative: This is an RME performed by Polo Holliday CNP: Additional HPI, ROS, PE not included below will be deferred to primary provider. Patient is a 47-year-old female who presents to the emergency for evaluation of a lump in my throat x4 days. Reports pain with eating and drinking, but has been eating solids without difficulty Reevaluation(s) Reevaluation #1: Patient positive for strep. Will give Decadron here. Discharge patient home on Augmentin. No signs of threat to airway. Tolerating fluids by mouth as well as solids Educated patient on diagnosis and treatment plan, answered all question, patient verbalizes understanding. At this time patient will be discharged home, advised to return with new or worsening symptoms. Educated on worrisome signs and symptoms and when to return. At this time I feel comfortable discharge home. Time: 13:10 Medical Decision Making Medical Decision Making [facility] Narrative: 1308 47 year old female presents w/ sore throat for 6 days PE erythematous posterior pharynx. HX and pe concerning for strep vs mono vs viral illness. No signs of MACHINE CELL TUBER, RPA, epiglotitis, threat to airway, ARDS. Unlikely esophageal stricture or FB in throat Plan- viral test. Differential Diagnosis Differential Diagnoses: The differential diagnosis associated with the presentation includes HX and pe concerning for strep vs mono vs viral illness. No signs of MACHINE CELL TUBER, RPA, epiglotitis, threat to airway, ARDS. Unlikely esophageal stricture or FB in th roat Admission/Observation Consideration of admission/observation: Escalation of care including admission/observation considered considered but unlikley Lab Data [facility] Lab Attestation statement: I reviewed the patient's lab results. Labs: Lab Results 10/14/23 Range/Units 11:55 Influenza Type A (PCR) NEGATIVE (Negative) Influenza Type B (PCR) NEGATIVE (Negative) RSV RNA Qual (PCR) NEGATIVE (Negative) SARS-CoV-2 RNA (RT-PCR) NEGATIVE (Negative) S. pyogenes GrpA PETERSON Positive A (Negative) External Record Review External record reviewed: Inpatient record, Office record, Outpatient record, Prior outpatient labs, Prior outpatient radiology, Primary care record and Outside ED record Prescription Management I considered prescription management with: Antibiotic Chronic Conditions Patient?s care impacted by: Other (epilepsy ) Discharge Plan Discharge Clinical Impression: Strep pharyngitis Patient Disposition: Home, Self-Care Instructions: Pharyngitis (ED), Strep Throat (ED), Strep Throat (DC) Additional Instructions: Take your medications as prescribed. If you were prescribed antibiotics today, it is important that you take your medication to their entirety, do not skip any doses, do not finish them early. Follow-up with your primary care provider this week. Return to the emergency department with new or worsening symptoms. Such as fevers, chills, chest pain, shortness of breath, nausea, vomiting, dizziness, headache, vision changes, lethargy In case of emergency call 911 Return with new or worsening symptoms or if your unable to tolerate food by mouth. Prescriptions: New amoxicillin-pot clavulanate 875-125 mg tablet 1 tab PO BID 7 Days Qty: 14 0RF No Action prednisone 20 mg tablet 40 mg PO DAILY Qty: 10 0RF ibuprofen 600 mg tablet 600 mg PO Q6H PRN (Reason: fever or pain) Qty: 30 0RF levetiracetam [Keppra] 500 mg tablet 500 mg PO BID Qty: 60 2RF levetiracetam 500 mg tablet 500 mg PO BID Qty: 60 0RF nystatin [Klayesta] 100,000 unit/gram powder 1 appl topical BID Qty: 15 0RF Rx Instructions: Apply to right breast in area of rash Referrals: ED Physician,Generic [Physician] - 2 days Stand Alone Forms: Work/School Release Interventions: ED Discharge Assessment Last Done: 10/14/23 13:25 Discharge Date/Time: 10/14/23 13:28 Print Language: Nicaraguan
[2023-10-14 12:44] LABS: Influenza A PCR NEGATIVE (Negative); Influenza B PCR NEGATIVE (Negative); Resp Syncy Virus RNA Qual PCR NEGATIVE (Negative); SARS COV2 PCR INHOUSE NEGATIVE (Negative)
[2023-10-14 12:46] LABS: IDNOW Serial# 08D9AD1C; Strep A Nucleic Acid Positive (Negative)
[2023-10-14 13:25] VITALS: BP 122/76; PULSE 90; RESP 18; TEMP 36.4; O2SAT 96
== END 2023-10-14 13:28 | disposition home or self-care (01) ==
PROVIDERS: Nurse Practitioner Family; Emergency Provider Emergency Medicine
DX: J02.0 Streptococcal pharyngitis (principal); Z03.818 Encounter for observation for suspected exposure to other biological agents ruled out
CPT/HCPCS: 0241U; 70360; 87651; 99282; 99283

== ENCOUNTER 2023-10-21 14:35 | Emergency (ER) | payer MEDICAID, SELFPAY ==
[2023-10-21 15:07] VITALS: BP 125/66; PULSE 77; RESP 18; TEMP 36.6; O2SAT 97; BMI 38.2
--- NOTE | 2023-10-21 15:10 | ED.GENADULT ---
HPI - General Adult General Stated complaint: Vomiting, dizziness Related Data Previous Rx's ?Medication ?Instructions ?Recorded ibuprofen 600 mg tablet 600 mg PO Q6H PRN fever or pain 08/30/23 #30 tabs prednisone 20 mg tablet 40 mg (2 x 20 mg) PO DAILY #10 tabs 08/30/23 levetiracetam 500 mg tablet 500 mg PO BID #60 tabs 09/08/23 (Keppra) levetiracetam 500 mg tablet 500 mg PO BID #60 tabs 10/04/23 nystatin 100,000 unit/gram topical 1 appl topical BID #15 grams 10/04/23 powder (Klayesta) amoxicillin 875 mg-potassium 1 tab PO BID 7 days #14 tabs 10/14/23 clavulanate 125 mg tablet Allergies Allergy/AdvReac Type Severity Reaction Status Date / Time seafood Allergy Anaphylaxis Verified 10/21/23 15:10 PMFSH Past Medical History Medical History Miscarriage Seizure Social History Social History Alcohol intake: never Course Course Course Narrative: RME- 47-year-old female presents for evaluation of abdominal pain, nausea and diarrhea. Plan for labs, UA. We will defer any potential imaging to primary your provider Discharge Plan Discharge Prescriptions: No Action prednisone 20 mg tablet 40 mg PO DAILY Qty: 10 0RF ibuprofen 600 mg tablet 600 mg PO Q6H PRN (Reason: fever or pain) Qty: 30 0RF levetiracetam [Keppra] 500 mg tablet 500 mg PO BID Qty: 60 2RF levetiracetam 500 mg tablet 500 mg PO BID Qty: 60 0RF nystatin [Klayesta] 100,000 unit/gram powder 1 appl topical BID Qty: 15 0RF Rx Instructions: Apply to right breast in area of rash amoxicillin-pot clavulanate 875-125 mg tablet 1 tab PO BID 7 Days Qty: 14 0RF Print Language: Icelandic
[2023-10-21 16:31] LABS: MANUAL DIFF FLAG NO
[2023-10-21 16:35] LABS: Basophils Percent Auto 0.6 % (0-2); Eosinophils Absolute Auto 0.1 X10*3/uL (0.0-0.4); Eosinophils Percent Auto 1.7 % (0-4); Hematocrit 38.7 % (37.0-47.0); Hemoglobin 13.2 g/dl (12.0-16.0); Imm Gran Abs Auto 0.01 X10*3/uL (0.00-0.03); Imm Gran Pct Auto 0.2 % (0.0-0.4); Lymphocytes Percent Auto 30.3 % (20-40); Mean Corpuscular HGB Conc 34.1 g/dl (31.0-35.0); Mean Corpuscular Hemoglobin 30.3 pg (27.0-33.0); Mean Corpuscular Volume 88.8 fL (80.0-98.0); Mean Platelet Volume 10.5 fL (9.4-12.3); Monocytes Absolute Auto 0.4 X10*3/uL (0.1-1.2); Monocytes Percent Auto 6.7 % (2-11); Neutrophils Absolute Auto 3.9 x10*3/uL (2.0-8.3); Neutrophils Percent Auto 60.5 % (45-73); Platelet Count 135 X10*3/uL (160-400); Red Blood Count 4.36 X10*6/uL (4.20-5.50); Red Cell Distribution Width 12.7 % (11.0-16.0); White Blood Count 6.4 X10*3/uL (4.8-10.8)
[2023-10-21 16:53] LABS: Alanine Aminotransferase 18 U/L (0-31); Albumin Level 4.3 g/dL (3.5-5.0); Alkaline Phosphatase 86 U/L (39-117); Anion Gap 13 (12-20); Aspartate Amino Transferase 23 U/L (5-31); Bilirubin Total 0.8 mg/dL (0.0-1.0); Blood Urea Nitrogen 9 mg/dL (9-16); Calcium 9.2 mg/dL (8.4-10.2); Carbon Dioxide 26 mmol/L (22-29); Chloride 107 mmol/L (96-108); Creatinine Clr Calc Pharmacy 99.4; Estimated Glomerular Filt Rate > 60; Glucose Random 91 mg/dL (60-115); Lipase 42 U/L (8-78); Potassium 4.2 mmol/L (3.3-5.1); Sodium 142 mmol/L (135-145); Total Protein 7.5 g/dL (6.5-8.0)
[2023-10-21 21:36] VITALS: BP 134/81; PULSE 57; RESP 18; TEMP 36.7; O2SAT 98
[2023-10-21 22:49] VITALS: BP 118/74; PULSE 66; RESP 14; TEMP 36.6; O2SAT 97
--- NOTE | 2023-10-21 22:50 | PC.NURSE ---
Pt just brought back from waiting room Pt ca&ox4, no signs of distress. Pt ambulates with a steady gait. Pt has 2 service dogs Vitals stable. Pt reporting abd pain n/v onset of 8am today Plan of care ongoing.
--- NOTE | 2023-10-21 23:01 | PC.NURSE ---
Provider with pt plan of care ongoing.
--- NOTE | 2023-10-21 23:06 | ED_ITS ---
HPI - Abdominal Pain General Chief Complaint: Abdominal Pain Stated Complaint: Vomiting, dizziness Time Seen by Provider: 10/21/23 22:52 Source: patient Mode of arrival: ambulatory Limitations: no limitations History of Present Illness HPI narrative: Patient apparently been vomiting multiple times earlier today had 1 bowel movement noticed small lump as the midline area near the umbilicus which slightly tender Related Data Previous Rx's ?Medication ?Instructions ?Recorded ibuprofen 600 mg tablet 600 mg PO Q6H PRN fever or pain 08/30/23 #30 tabs prednisone 20 mg tablet 40 mg (2 x 20 mg) PO DAILY #10 tabs 08/30/23 levetiracetam 500 mg tablet 500 mg PO BID #60 tabs 09/08/23 (Keppra) levetiracetam 500 mg tablet 500 mg PO BID #60 tabs 10/04/23 nystatin 100,000 unit/gram topical 1 appl topical BID #15 grams 10/04/23 powder (Klayesta) amoxicillin 875 mg-potassium 1 tab PO BID 7 days #14 tabs 10/14/23 clavulanate 125 mg tablet ondansetron 4 mg disintegrating 4 mg PO Q6-8H PRN nausea and 10/22/23 tablet vomiting #7 tabs tramadol 50 mg tablet 50 mg PO Q6H PRN pain #20 tabs 10/22/23 Allergies Allergy/AdvReac Type Severity Reaction Status Date / Time seafood Allergy Anaphylaxis Verified 10/21/23 15:10 Review of Systems Review of Systems Yes all other systems are reviewed and are negative PMFSH Past Medical History Medical History Miscarriage Seizure Social History Social History Alcohol intake: never Smoked in Last 30 Days: Yes Use of substances other than those prescribed or required for medical reasons: No Advance Directives: No Advance Directives Information Provided: No Do you have a plan to hurt others: No Plan Physical Exam ED Vital Signs: Vital Signs - 24 hr 10/21/23 15:07 10/21/23 21:36 10/21/23 22:49 Temperature 97.9 F 98.1 F 97.9 F Pulse Rate 77 57 66 Respiratory Rate 18 18 14 Blood Pressure 125/66 134/81 118/74 Pulse Oximetry 97 98 97 Oxygen Delivery Method Room Air Room Air Room Air BMI result Body Mass Index 38.2 Appearance: Alert. Oriented X3. No acute distress. Eyes: PERRLA, No Nystagmus ENT: Pharynx normal. Oral Mucosa moist Neck: Normal inspection. Neck supple. CVS: Normal heart rate and rhythm. Pulses normal. Respiratory: No respiratory distress. Equal air entry bilateral, no wheezing/rales/rhonchi is small ventral hernia reducible no significant tenderness Abdomen: Soft and nontender. Bowel sounds are present, Skin: Skin warm and dry. Normal skin color. Normal skin turgor. Extremities: No lower extremity edema. No calf tenderness Neuro: Oriented X 3. No motor deficit. No sensory deficis , cranial nerves II- XII intact Medical Decision Making Medical Decision Making [facility] Narrative: Patient has small ventral hernia which got worse after vomiting, patient does not have any bowel loop no signs of incarceration Lab Data [facility] Lab Attestation statement: I reviewed the patient's lab results. 10/21/23 16:26 10/21/23 16:25 Labs: Lab Results 10/21/23 10/21/23 Range/Units 16:25 16:26 WBC 6.4 (4.8-10.8) X10*3/uL RBC 4.36 (4.20-5.50) X10*6/uL Hgb 13.2 (12.0-16.0) g/dl Hct 38.7 (37.0-47.0) % MCV 88.8 (80.0-98.0) fL MCH 30.3 (27.0-33.0) pg MCHC 34.1 (31.0-35.0) g/dl RDW 12.7 (11.0-16.0) % Plt Count 135 L D (160-400) X10*3/uL MPV 10.5 (9.4-12.3) fL Immature Gran % (Auto) 0.2 (0.0-0.4) % Neut % (Auto) 60.5 (45-73) % Lymph % (Auto) 30.3 (20-40) % [place] % (Auto) 6.7 (2-11) % Eos % (Auto) 1.7 (0-4) % Baso % (Auto) 0.6 (0-2) % Lymph # (Auto) 2.0 (1.2-4.9) X10*3/uL [place] # (Auto) 0.4 (0.1-1.2) X10*3/uL Eos # (Auto) 0.1 (0.0-0.4) X10*3/uL Baso # (Auto) 0.0 (0.0-0.2) X10*3/uL Abs Immat Gran (auto) 0.01 (0.00-0.03) X10*3/uL Absolute Neuts (auto) 3.9 (2.0-8.3) x10*3/uL Absolute Nucleated RBC 0.000 (0.0-0.012) X10*3/uL Nucleated RBC % (auto) 0.0 (0.0-0.2) /100WBC Sodium 142 (135-145) mmol/L Potassium 4.2 (3.3-5.1) mmol/L Chloride 107 (96-108) mmol/L Carbon Dioxide 26 (22-29) mmol/L Anion Gap 13 (12-20) BUN 9 (9-16) mg/dL Creatinine 0.82 (0.5-1.4) mg/dL Estim Creat Clear Calc 99.4 Estimated GFR > 60 Random Glucose 91 (60-115) mg/dL Calcium 9.2 D (8.4-10.2) mg/dL Total Bilirubin 0.8 (0.0-1.0) mg/dL AST 23 (5-31) U/L ALT 18 (0-31) U/L Alkaline Phosphatase 86 (39-117) U/L Total Protein 7.5 (6.5-8.0) g/dL Albumin 4.3 (3.5-5.0) g/dL Lipase 42 (8-78) U/L Medications Administered Discontinued Medications Generic Name Dose Route Start Last Admin Trade Name Freq PRN Reason Stop Dose Admin Ondansetron HCl 4 mg 10/21/23 23:05 10/21/23 23:12 Ondansetron Odt 4 Mg Tab.Rapdis TRANSLINGU 10/21/23 23:06 4 mg ONCE ONE Administration Discharge Plan Discharge Clinical Impression: Gastroenteritis, Hernia, ventral Patient Disposition: Home, Self-Care Instructions: Acute Nausea and Vomiting (ED), Ventral Hernia (ED) Additional Instructions: Drink plenty of fluids Medicine for nausea as prescribed Your have as small umbilical hernia avoid straining Prescriptions: New tramadol 50 mg tablet 50 mg PO Q6H PRN (Reason: pain) Qty: 20 0RF ondansetron 4 mg tablet,disintegrating 4 mg PO Q6-8H PRN (Reason: nausea and vomiting) Qty: 7 0RF No Action prednisone 20 mg tablet 40 mg PO DAILY Qty: 10 0RF ibuprofen 600 mg tablet 600 mg PO Q6H PRN (Reason: fever or pain) Qty: 30 0RF levetiracetam [Keppra] 500 mg tablet 500 mg PO BID Qty: 60 2RF levetiracetam 500 mg tablet 500 mg PO BID Qty: 60 0RF nystatin [Klayesta] 100,000 unit/gram powder 1 appl topical BID Qty: 15 0RF Rx Instructions: Apply to right breast in area of rash amoxicillin-pot clavulanate 875-125 mg tablet 1 tab PO BID 7 Days Qty: 14 0RF Interventions: ED Discharge Assessment Last Done: 10/22/23 00:37 Discharge Date/Time: 10/22/23 00:39 Print Language: Dominican
[2023-10-21] MEDS: Ondansetron ODT 4 MG TAB.RAPDIS TRANSLINGU (23:12)
--- NOTE | 2023-10-21 23:12 | PC.NURSE ---
Pt medicated per jul. Plan of care ongoing.
--- NOTE | 2023-10-22 00:36 | PC.NURSE ---
Pt requested and given weight. Pt requested and given food and drink. Plan of care ongoing.
[2023-10-22 00:37] VITALS: BP 120/63; PULSE 50; RESP 12; TEMP 36.6; O2SAT 97
== END 2023-10-22 00:39 | disposition home or self-care (01) ==
PROVIDERS: Physician Assistant; Emergency Provider Internal Medicine
DX: K52.9 Noninfective gastroenteritis and colitis, unspecified (principal); K43.9 Ventral hernia without obstruction or gangrene
CPT/HCPCS: 36415; 80053; 83690; 85025; 99283; 99284

== ENCOUNTER 2023-11-01 22:05 | Emergency (ER) | payer MEDICAID, SELFPAY ==
[2023-11-01 22:16] VITALS: BP 112/68; PULSE 78; RESP 18; TEMP 37.1; O2SAT 97; BMI 38.4
[2023-11-02 00:08] LABS: MANUAL DIFF FLAG NO
[2023-11-02 00:10] LABS: Basophils Percent Auto 0.5 % (0-2); Eosinophils Absolute Auto 0.1 X10*3/uL (0.0-0.4); Eosinophils Percent Auto 1.9 % (0-4); Hematocrit 37.6 % (37.0-47.0); Hemoglobin 13.1 g/dl (12.0-16.0); Imm Gran Abs Auto 0.01 X10*3/uL (0.00-0.03); Imm Gran Pct Auto 0.2 % (0.0-0.4); Lymphocytes Absolute Auto 2.4 X10*3/uL (1.2-4.9); Lymphocytes Percent Auto 37.3 % (20-40); Mean Corpuscular HGB Conc 34.8 g/dl (31.0-35.0); Mean Corpuscular Volume 89.1 fL (80.0-98.0); Mean Platelet Volume 10.5 fL (9.4-12.3); Monocytes Absolute Auto 0.4 X10*3/uL (0.1-1.2); Neutrophils Absolute Auto 3.4 x10*3/uL (2.0-8.3); Neutrophils Percent Auto 53.1 % (45-73); Platelet Count 150 X10*3/uL (160-400); Red Blood Count 4.22 X10*6/uL (4.20-5.50); Red Cell Distribution Width 12.9 % (11.0-16.0); White Blood Count 6.3 X10*3/uL (4.8-10.8)
[2023-11-02 00:26] LABS: Alanine Aminotransferase 16 U/L (0-31); Albumin Level 4.1 g/dL (3.5-5.0); Alkaline Phosphatase 73 U/L (39-117); Anion Gap 12 (12-20); Aspartate Amino Transferase 21 U/L (5-31); Bilirubin Total 0.4 mg/dL (0.0-1.0); Blood Urea Nitrogen 15 mg/dL (9-16); Calcium 9.9 mg/dL (8.4-10.2); Carbon Dioxide 27 mmol/L (22-29); Chloride 109 mmol/L (96-108); Creatinine Clr Calc Pharmacy 90.8; Estimated Glomerular Filt Rate > 60; Glucose Random 93 mg/dL (60-115); Potassium 3.9 mmol/L (3.3-5.1); Sodium 144 mmol/L (135-145); Total Protein 7.2 g/dL (6.5-8.0)
--- NOTE | 2023-11-02 00:27 | ED_ITS ---
HPI - Skin/Abscess/Foreign Bdy General Chief complaint: Skin/Abscess/Foreign Body Stated complaint: spot on left arm/one on the leg Time Seen by Provider: 11/02/23 00:01 History of Present Illness HPI narrative: Patient is a 47-year-old female homeless question insect bite to the left forearm and to the right leg while sleeping. Patient complaining of some redness. There is no fever no chills no systemic complaints. Ambulates without any difficulty. Related Data Previous Rx's ?Medication ?Instructions ?Recorded ibuprofen 600 mg tablet 600 mg PO Q6H PRN fever or pain 08/30/23 #30 tabs prednisone 20 mg tablet 40 mg (2 x 20 mg) PO DAILY #10 tabs 08/30/23 levetiracetam 500 mg tablet 500 mg PO BID #60 tabs 09/08/23 (Keppra) levetiracetam 500 mg tablet 500 mg PO BID #60 tabs 10/04/23 nystatin 100,000 unit/gram topical 1 appl topical BID #15 grams 10/04/23 powder (Klayesta) amoxicillin 875 mg-potassium 1 tab PO BID 7 days #14 tabs 10/14/23 clavulanate 125 mg tablet ondansetron 4 mg disintegrating 4 mg PO Q6-8H PRN nausea and 10/22/23 tablet vomiting #7 tabs tramadol 50 mg tablet 50 mg PO Q6H PRN pain #20 tabs 10/22/23 cephalexin 500 mg capsule 500 mg PO Q8H 7 days #21 caps 11/02/23 Allergies Allergy/AdvReac Type Severity Reaction Status Date / Time seafood Allergy Anaphylaxis Verified 11/01/23 22:20 Review of Systems 2 Review of Systems: Positive rash to the left forearm and to the right proximal leg Yes all other systems are reviewed and are negative PMFSH Past Medical History Attestation statement: The following information was validated with the patient. Medical History Miscarriage Seizure Social History Social History Alcohol intake: never Advance Directives: No Advance Directives Information Provided: Yes Do you have a plan to hurt others: No Plan Physical Exam 2 Vital Signs: Vital Signs: Last Vital Signs Temp 98.7 F 06/06/24 22:16 Pulse 78 11/01/23 22:16 Resp 18 11/01/23 22:16 BP 112/68 11/01/23 22:16 Pulse Ox 97 11/01/23 22:16 O2 Del Method Room Air 11/01/23 22:16 BMI result Body Mass Index 38.4 Appearance: Alert. Oriented X3. No acute distress. Eyes: Pupils equal, round and reactive to light. ENT: Pharynx normal. Neck: Normal inspection. Neck supple. No lymph nodes noted. No crepitus CVS: Normal heart rate and rhythm. Pulses normal. Normal S1 and S2 Respiratory: No respiratory distress. Breath sounds normal. No Wheezing. No rales Abdomen: Soft and nontender. No rigidity. No distention. good BS x4 Skin: Skin warm and dry. Two very small lesion 1 2 the left arm approximately 2 cm x 2 cm in size. Red not warm to touch minimal induration there is no fluctuant. No discharge. Another lesion is over the proximal right leg. Also read 2 cm x 2 cm in size also not fluctuant. No discharge Extremities: No lower extremity edema. Neurovascular intact to all extremities. No Lacerations. No Rash Neuro: Oriented X 3. No motor deficit. No sensory deficit. Moving all extermities. No slurred speech Medical Decision Making Medical Decision Making [facility] Narrative: Question insect bite allergy versus skin infection will start patient on antibiotics close follow-up on an outpatient basis labs are normal well- appearing no distress Differential Diagnosis Differential Diagnoses: The differential diagnosis associated with the presentation includes Cellulitis, allergic reaction, abscess Admission/Observation Consideration of admission/observation: Escalation of care including admission/observation considered Lab Data [facility] Lab Attestation statement: I reviewed the patient's lab results. 11/02/23 00:05 11/02/23 00:05 Labs: Lab Results 11/02/23 Range/Units 00:05 WBC 6.3 (4.8-10.8) X10*3/uL RBC 4.22 (4.20-5.50) X10*6/uL Hgb 13.1 (12.0-16.0) g/dl Hct 37.6 (37.0-47.0) % MCV 89.1 (80.0-98.0) fL MCH 31.0 (27.0-33.0) pg MCHC 34.8 (31.0-35.0) g/dl RDW 12.9 (11.0-16.0) % Plt Count 150 L (160-400) X10*3/uL MPV 10.5 (9.4-12.3) fL Immature Gran % (Auto) 0.2 (0.0-0.4) % Neut % (Auto) 53.1 (45-73) % Lymph % (Auto) 37.3 (20-40) % [place] % (Auto) 7.0 (2-11) % Eos % (Auto) 1.9 (0-4) % Baso % (Auto) 0.5 (0-2) % Lymph # (Auto) 2.4 (1.2-4.9) X10*3/uL [place] # (Auto) 0.4 (0.1-1.2) X10*3/uL Eos # (Auto) 0.1 (0.0-0.4) X10*3/uL Baso # (Auto) 0.0 (0.0-0.2) X10*3/uL Abs Immat Gran (auto) 0.01 (0.00-0.03) X10*3/uL Absolute Neuts (auto) 3.4 (2.0-8.3) x10*3/uL Absolute Nucleated RBC 0.000 (0.0-0.012) X10*3/uL Nucleated RBC % (auto) 0.0 (0.0-0.2) /100WBC Sodium 144 (135-145) mmol/L Potassium 3.9 (3.3-5.1) mmol/L Chloride 109 H (96-108) mmol/L Carbon Dioxide 27 (22-29) mmol/L Anion Gap 12 (12-20) BUN 15 (9-16) mg/dL Creatinine 0.90 (0.5-1.4) mg/dL Estim Creat Clear Calc 90.8 Estimated GFR > 60 Random Glucose 93 (60-115) mg/dL Calcium 9.9 D (8.4-10.2) mg/dL Total Bilirubin 0.4 (0.0-1.0) mg/dL AST 21 (5-31) U/L ALT 16 (0-31) U/L Alkaline Phosphatase 73 (39-117) U/L Total Protein 7.2 (6.5-8.0) g/dL Albumin 4.1 (3.5-5.0) g/dL Chronic Conditions History of seizure Social Determinants Patient?s care significantly limited by Social Determinants of Health including: Inadequate housing and Low income Discharge Plan Discharge Clinical Impression: Cellulitis Patient Disposition: Home, Self-Care Instructions: Cellulitis (ED) Prescriptions: New cephalexin 500 mg capsule 500 mg PO Q8H 7 Days Qty: 21 0RF No Action prednisone 20 mg tablet 40 mg PO DAILY Qty: 10 0RF ibuprofen 600 mg tablet 600 mg PO Q6H PRN (Reason: fever or pain) Qty: 30 0RF levetiracetam [Keppra] 500 mg tablet 500 mg PO BID Qty: 60 2RF levetiracetam 500 mg tablet 500 mg PO BID Qty: 60 0RF nystatin [Klayesta] 100,000 unit/gram powder 1 appl topical BID Qty: 15 0RF Rx Instructions: Apply to right breast in area of rash amoxicillin-pot clavulanate 875-125 mg tablet 1 tab PO BID 7 Days Qty: 14 0RF tramadol 50 mg tablet 50 mg PO Q6H PRN (Reason: pain) Qty: 20 0RF ondansetron 4 mg tablet,disintegrating 4 mg PO Q6-8H PRN (Reason: nausea and vomiting) Qty: 7 0RF Referrals: [facility] [Provider Group] - 11/06/23 Print Language: Greek
[2023-11-02 00:38] VITALS: BP 113/66; PULSE 61; RESP 16; TEMP 36.6; O2SAT 95
[2023-11-02 00:42] VITALS: BP 113/66; PULSE 61; RESP 16; TEMP 36.6; O2SAT 95
== END 2023-11-02 00:44 | disposition home or self-care (01) ==
PROVIDERS: Emergency Provider Emergency Medicine Emergency Medical Services
DX: L03.114 Cellulitis of left upper limb (principal); M79.604 Pain in right leg; Z79.899 Other long term (current) drug therapy
CPT/HCPCS: 36415; 80053; 85025; 99283

== ENCOUNTER 2023-11-02 06:54 | Emergency (ER) | payer MEDICAID, SELFPAY ==
[2023-11-02 07:08] VITALS: BP 116/72; PULSE 66; RESP 20; TEMP 36; O2SAT 95; BMI 38.1
--- NOTE | 2023-11-02 07:32 | ED_ITS ---
HPI - Nausea/Vomiting/Diarrhea General Chief complaint: Nausea/Vomiting/Diarrhea Stated complaint: recheck, diarrhea meds? Time Seen by Provider: 11/02/23 07:30 Source: patient Mode of arrival: ambulatory Limitations: no limitations History of Present Illness ED Provider: Jay WILLIAM HPI Narrative: This is a 47-year-old female history of miscarriage, recent spider bite coming in with concerns of diarrhea she was seen last night for a spider bite, she forgot to mention that she had diarrhea and she was for her diarrhea. Having 6- 10 small loose bowel movements per day. No associated abdominal pain. Patient reports she was on antibiotics for strep throat middle of last month but no other antibiotics. Denies fevers, chills, chest pain, shortness of breath, nausea, vomiting, abdominal pain, headache, vision changes, dizziness and weakness Related Data Previous Rx's ?Medication ?Instructions ?Recorded ibuprofen 600 mg tablet 600 mg PO Q6H PRN fever or pain 08/30/23 #30 tabs prednisone 20 mg tablet 40 mg (2 x 20 mg) PO DAILY #10 tabs 08/30/23 levetiracetam 500 mg tablet 500 mg PO BID #60 tabs 09/08/23 (Keppra) levetiracetam 500 mg tablet 500 mg PO BID #60 tabs 10/04/23 nystatin 100,000 unit/gram topical 1 appl topical BID #15 grams 10/04/23 powder (Klayesta) amoxicillin 875 mg-potassium 1 tab PO BID 7 days #14 tabs 10/14/23 clavulanate 125 mg tablet ondansetron 4 mg disintegrating 4 mg PO Q6-8H PRN nausea and 10/22/23 tablet vomiting #7 tabs tramadol 50 mg tablet 50 mg PO Q6H PRN pain #20 tabs 10/22/23 cephalexin 500 mg capsule 500 mg PO Q8H 7 days #21 caps 11/02/23 vancomycin 125 mg capsule 125 mg PO QID 10 days #40 caps 11/02/23 Allergies Allergy/AdvReac Type Severity Reaction Status Date / Time seafood Allergy Anaphylaxis Verified 11/02/23 07:10 Review of Systems Review of Systems: Yes all other systems are reviewed and are negative PMFSH Past Medical History Attestation statement: The following information was validated with the patient. Source: old records reviewed and nursing notes reviewed Medical History Miscarriage Seizure Social History Social History Alcohol intake: never Advance Directives: No Advance Directives Information Provided: Yes Do you have a plan to hurt others: No Plan Physical Exam Vital Signs: Vital Signs: Last Vital Signs Temp 98.2 F 11/02/23 11:21 Pulse 54 11/02/23 11:21 Resp 18 11/02/23 11:21 BP 119/65 11/02/23 11:21 Pulse Ox 96 11/02/23 11:21 O2 Del Method Room Air 11/02/23 11:21 BMI result Body Mass Index 38.1 Vital signs stable Appearance: Alert.? Oriented X3.? No acute distress.? Head: Normocephalic, atraumatic, no step-offs or deformities Eyes: Pupils equal, round and reactive to light.? ENT: Pharynx normal.? Neck: Normal inspection.? Neck supple.? CVS: Normal heart rate and rhythm.? Pulses normal.? Respiratory: No respiratory distress.? Breath sounds normal.? Abdomen: Soft and nontender.? Skin: Skin warm and dry.? Normal skin color.? Normal skin turgor.? Extremities: No lower extremity edema.? No calf ttp. 5/5 strength to bilateral upper and lower extremitie Neuro: Oriented X 3.? No motor deficit.? No sensory deficit. CN 2-12 intact Course Reevaluation(s) Reevaluation #1: Labs from earlier today no acute findings requiring intervention. No white count supporting that this is unlikely C diff but will send of stool studies . chemistry with no acute electrolyte abnormalities requiring intervention. Normal BUN and creatinine. No signs of clinical dehydration. Time: 07:36 Reevaluation #2: Patient did not want to wait for stool studies however she is positive for C diff. Tried calling number on file no answer, no voicemail not dialing out Time: 12:09 Medications Administered Discontinued Medications Generic Name Dose Route Start Last Admin Trade Name Freq PRN Reason Stop Dose Admin Loperamide HCl 2 mg 11/02/23 07:31 11/02/23 07:45 Loperamide Hcl 2 Mg Capsule PO 11/02/23 07:32 2 mg ONCE ONE Administration Medical Decision Making Medical Decision Making [facility] Narrative: 0734 47-year-old female presents with diarrhea for the past few days. Was seen last night forgot to mention she had diarrhea and would like medicine for it today. She would labs done last night. She is homeless. Physical exam History and physical exam concerning for diarrhea likely viral. Unlikely bacterial diarrhea or C diff. Unlikely metabolic derangements. No signs of acute abdomen, appendicitis, diverticulitis, pancreatitis, obstruction. No signs of clinical dehydration Will review labs from last night that were obtained no need for repeat labs. Patient tollerating PO Differential Diagnosis Differential Diagnoses: The differential diagnosis associated with the presentation includes History and physical exam concerning for diarrhea likely viral. Unlikely bacterial diarrhea or C diff. Unlikely metabolic derangements. No signs of acute abdomen, appendicitis, diverticulitis, pancreatitis, obstruction. No signs of clinical dehydration Admission/Observation Consideration of admission/observation: Escalation of care including admission/observation considered unlikely Lab Data [facility] Lab Attestation statement: I reviewed the patient's lab results. Labs: Lab Results 11/02/23 Range/Units 08:28 C. difficile Tox B Gene POSITIVE A* (Negative) C. difficile Toxin A&B Negative (Negative) C. difficile Interpret SEE NOTE External Record Review External record reviewed: Inpatient record, Office record, Outpatient record, Prior outpatient labs, Prior outpatient radiology, Primary care record and Outside ED record Prescription Management I considered prescription management with: Other (Loperamide ) Chronic Conditions Patient?s care impacted by: Other (Miscarriage, cellulitis.) Critical Care Time Critical Care Time Critical Care Time: No Discharge Plan Discharge Clinical Impression: Diarrhea, Colitis, Clostridium difficile Patient Disposition: Left Against Medical Advice Instructions: Acute Diarrhea (ED) Additional Instructions: Take your medications as prescribed. If you were prescribed antibiotics today, it is important that you take your medication to their entirety, do not skip any doses, do not finish them early. Follow-up with your primary care provider this week. Return to the emergency department with new or worsening symptoms. Such as fevers, chills, chest pain, shortness of breath, nausea, vomiting, dizziness, headache, vision changes, lethargy In case of emergency call 911 Take loperamide for diarrhea. Prescriptions: New vancomycin 125 mg capsule 125 mg PO QID 10 Days Qty: 40 0RF No Action prednisone 20 mg tablet 40 mg PO DAILY Qty: 10 0RF ibuprofen 600 mg tablet 600 mg PO Q6H PRN (Reason: fever or pain) Qty: 30 0RF cephalexin 500 mg capsule 500 mg PO Q8H 7 Days Qty: 21 0RF levetiracetam [Keppra] 500 mg tablet 500 mg PO BID Qty: 60 2RF levetiracetam 500 mg tablet 500 mg PO BID Qty: 60 0RF nystatin [Klayesta] 100,000 unit/gram powder 1 appl topical BID Qty: 15 0RF Rx Instructions: Apply to right breast in area of rash amoxicillin-pot clavulanate 875-125 mg tablet 1 tab PO BID 7 Days Qty: 14 0RF tramadol 50 mg tablet 50 mg PO Q6H PRN (Reason: pain) Qty: 20 0RF ondansetron 4 mg tablet,disintegrating 4 mg PO Q6-8H PRN (Reason: nausea and vomiting) Qty: 7 0RF Referrals: Physician,Unknown J [Primary Care Provider] - 2 days Stand Alone Forms: Against Medical Advice, Work/School Release Interventions: ED Discharge Assessment Last Done: 11/02/23 11:21 Discharge Date/Time: 11/02/23 11:23 Print Language: [place]
[2023-11-02] MEDS: Loperamide HCl 2 MG CAPSULE PO (07:45)
[2023-11-02 07:57] VITALS: BP 119/65; PULSE 54; RESP 18; TEMP 36.8; O2SAT 96
[2023-11-02 11:21] VITALS: BP 119/65; PULSE 54; RESP 18; TEMP 36.8; O2SAT 96
[2023-11-02 11:21] LABS: CDiff Gene PCR POSITIVE (Negative)
[2023-11-02 11:22] LABS: CDIFF Internal ctrl Dots and bkg OK (V)
[2023-11-02 11:23] LABS: CDiff Toxin Negative (Negative)
--- NOTE | 2023-11-02 11:23 | PC.NURSE ---
pt ambulated out of ED w steady gait, belongings and dogs in baby carrier, advised of risks d/t leaving, pt elected to leave AMA w/o waiting for and signing paperwork, and repeat vitals, provider aware.
[2023-11-02 14:13] LABS: Adenovirus F 40/41 Not Detected (Not Detect.); Astrovirus Not Detected (Not Detect.); Campylobacter Not Detected (Not Detect.); Cryptosporidium Not Detected (Not Detect.); Cyclospora cayetanensis Not Detected (Not Detect.); E. coli EAEC Not Detected (Not Detect.); E. coli EPEC Not Detected (Not Detect.); E. coli ETEC Not Detected (Not Detect.); E. coli STEC Not Detected (Not Detect.); Entamoeba histolytica Not Detected (Not Detect.); Giardia lamblia Not Detected (Not Detect.); Norovirus GI/GII Not Detected (Not Detect.); Plesiomonas shigelloides Not Detected (Not Detect.); Rotavirus A Not Detected (Not Detect.); Salmonella Not Detected (Not Detect.); Sapovirus Not Detected (Not Detect.); Shigella sp./EIEC Not Detected (Not Detect.); Vibrio Not Detected (Not Detect.); Vibrio Cholerae Not Detected (Not Detect.); Yersinia enterocolitica Not Detected (Not Detect.)
== END 2023-11-02 11:23 | disposition left against medical advice (07) ==
PROVIDERS: Physician Assistant; Emergency Provider Emergency Medicine Emergency Medical Services
DX: K52.9 Noninfective gastroenteritis and colitis, unspecified (principal); A04.72 Enterocolitis due to Clostridium difficile, not specified as recurrent; R11.2 Nausea with vomiting, unspecified; Z79.899 Other long term (current) drug therapy
CPT/HCPCS: 87324; 87493; 87507; 99283

== ENCOUNTER 2023-11-09 16:43 | Emergency (ER) | payer MEDICAID, SELFPAY ==
--- NOTE | ~2023-11-09 | CT_ITS ---
EXAMINATION: CT HEAD WITHOUT CONTRAST CLINICAL INFORMATION: Seizure. COMPARISON: None available. TECHNIQUE: Contiguous axial imaging was performed from the skull base to vertex without intravenous administration of contrast. This CT examination was performed using dose optimization techniques as appropriate, variously including the following: *Automated exposure control *Adjustment of mA and/or kV according to patient size (this includes techniques or standardized protocols for targeted exams where dose is matched to indication/reason for exam; i.e. extremities or head) *Use of iterative reconstruction technique DLP: 617 mGy-cm FINDINGS: There is no acute intracranial hemorrhage. There is no evidence of acute/subacute cerebral or cerebellar infarction. There is no mass effect or midline shift. No extra-axial fluid collection. The ventricles are normal in size. The orbits are symmetric and within normal limits. The calvarium is intact. The mastoid air cells are clear. Visualized paranasal sinuses are well aerated. CT/CT head/brain wo IV con IMPRESSION: No acute intracranial pathology.
[2023-11-09 16:46] VITALS: BP 122/83; PULSE 75; RESP 18; TEMP 36.9; O2SAT 96; BMI 38.6
--- NOTE | 2023-11-09 16:47 | ED.GENADULT ---
HPI - General Adult General Chief complaint: Seizure Stated complaint: Seizures Time Seen by Provider: 11/09/23 17:58 Source: patient Mode of arrival: ambulatory Limitations: no limitations History of Present Illness ED Provider: emerson MARTINEZ narrative: Patient history of epilepsy and stress-induced seizures on Keppra since childhood noncompliant with the medication losing attempt had seizure prior to arrival patient does not remember not witnessed by anyone except the medical dog no tongue bite no head injury Related Data Previous Rx's ?Medication ?Instructions ?Recorded ibuprofen 600 mg tablet 600 mg PO Q6H PRN fever or pain 08/30/23 #30 tabs prednisone 20 mg tablet 40 mg (2 x 20 mg) PO DAILY #10 tabs 08/30/23 levetiracetam 500 mg tablet 500 mg PO BID #60 tabs 09/08/23 (Keppra) levetiracetam 500 mg tablet 500 mg PO BID #60 tabs 10/04/23 nystatin 100,000 unit/gram topical 1 appl topical BID #15 grams 10/04/23 powder (Klayesta) amoxicillin 875 mg-potassium 1 tab PO BID 7 days #14 tabs 10/14/23 clavulanate 125 mg tablet ondansetron 4 mg disintegrating 4 mg PO Q6-8H PRN nausea and 10/22/23 tablet vomiting #7 tabs tramadol 50 mg tablet 50 mg PO Q6H PRN pain #20 tabs 10/22/23 cephalexin 500 mg capsule 500 mg PO Q8H 7 days #21 caps 11/02/23 vancomycin 125 mg capsule 125 mg PO QID 10 days #40 caps 11/02/23 levetiracetam 500 mg tablet 500 mg PO BID #180 tabs 11/09/23 (Keppra) Allergies Allergy/AdvReac Type Severity Reaction Status Date / Time seafood Allergy Anaphylaxis Verified 11/09/23 16:49 Review of Systems Review of Systems: Yes all other systems are reviewed and are negative PMFSH Past Medical History Medical History Miscarriage Seizure Social History Social History Alcohol intake: never Smoked in Last 30 Days: Yes Use of substances other than those prescribed or required for medical reasons: No Advance Directives: No Advance Directives Information Provided: No Physical Exam ED Vital Signs: Vital Signs - 24 hr 11/09/23 16:46 11/09/23 18:00 Temperature 98.4 F Pulse Rate 75 51 Respiratory Rate 18 12 Blood Pressure 122/83 105/55 L Pulse Oximetry 96 98 Oxygen Delivery Method Room Air Room Air BMI result Body Mass Index 38.6 Appearance: Alert. Oriented X3. No acute distress. Eyes: PERRLA, No Nystagmus ENT: Pharynx normal. Oral Mucosa moist atraumatic no tongue bite Neck: Normal inspection. Neck supple. CVS: Normal heart rate and rhythm. Pulses normal. Respiratory: No respiratory distress. Equal air entry bilateral, no wheezing/rales/rhonchi Abdomen: Soft and nontender. Bowel sounds are present, no mass palpable, no CVA tenderness Skin: Skin warm and dry. Normal skin color. Normal skin turgor. Extremities: No lower extremity edema. No calf tenderness Neuro: Oriented X 3. No motor deficit. No sensory deficit.No cerebellar signs , cranial nerves II-XII intact Course Course Course Narrative: This is an RME performed by Polo Holliday CNP: Additional HPI, ROS, PE not included below will be deferred to primary provider. Patient is a 47-year-old female past medical history of seizure disorder reporting compliance with her Keppra. She reports 2 seizures prior to arrival. She reports that she was sitting in a chair in her tent, when her dog was scratching her chest, she states that the dog does this when she is experiencing a seizure, when she felt the dog scratching her chest she was able to bring herself to her bed and lye down, she reports that she then lost consciousness. After awaking, she reports approximately 10 seconds later she believes she had a mother seizure as the dog was against scratching at her chest. She has reporting a diffuse headache, states she is uncertain whether she hit her head or anything during the seizure, she is also experiencing nausea, substernal chest pain described as a burning sensation, reporting ?it feels different than my acid reflux?, she feels tired. She denies any aura with her seizures. She has otherwise been well, denies any known infection or recent ill symptoms. Medications Administered Discontinued Medications Generic Name Dose Route Start Last Admin Trade Name Freq PRN Reason Stop Dose Admin Acetaminophen 650 mg 11/09/23 18:25 11/09/23 18:32 Acetaminophen 325 Mg Tablet PO 11/09/23 18:26 650 mg ONCE ONE Administration Levetiracetam 1,000 mg 11/09/23 18:25 11/09/23 18:32 Levetiracetam 1,000 Mg Tablet PO 11/09/23 18:26 1,000 mg ONCE ONE Administration Medical Decision Making Lab Data 11/09/23 17:13 11/09/23 17:13 Labs: Lab Results 11/09/23 11/09/23 Range/Units 17:13 17:17 WBC 5.8 (4.8-10.8) X10*3/uL RBC 4.30 (4.20-5.50) X10*6/uL Hgb 13.1 (12.0-16.0) g/dl Hct 37.9 (37.0-47.0) % MCV 88.1 (80.0-98.0) fL MCH 30.5 (27.0-33.0) pg MCHC 34.6 (31.0-35.0) g/dl RDW 12.9 (11.0-16.0) % Plt Count 143 L (160-400) X10*3/uL MPV 10.9 (9.4-12.3) fL Immature Gran % (Auto) 0.2 (0.0-0.4) % Neut % (Auto) 50.3 (45-73) % Lymph % (Auto) 40.0 (20-40) % Hendricks % (Auto) 7.1 (2-11) % Eos % (Auto) 1.9 (0-4) % Baso % (Auto) 0.5 (0-2) % Lymph # (Auto) 2.3 (1.2-4.9) X10*3/uL [place] # (Auto) 0.4 (0.1-1.2) X10*3/uL Eos # (Auto) 0.1 (0.0-0.4) X10*3/uL Baso # (Auto) 0.0 (0.0-0.2) X10*3/uL Abs Immat Gran (auto) 0.01 (0.00-0.03) X10*3/uL Absolute Neuts (auto) 2.9 (2.0-8.3) x10*3/uL Absolute Nucleated RBC 0.000 (0.0-0.012) X10*3/uL Nucleated RBC % (auto) 0.0 (0.0-0.2) /100WBC Sodium 141 (135-145) mmol/L Potassium 3.8 (3.3-5.1) mmol/L Chloride 106 (96-108) mmol/L Carbon Dioxide 28 (22-29) mmol/L Anion Gap 11 L (12-20) BUN 14 (9-16) mg/dL Creatinine 0.79 (0.5-1.4) mg/dL Estim Creat Clear Calc 103.6 Estimated GFR > 60 Random Glucose 91 (60-115) mg/dL Calcium 9.4 (8.4-10.2) mg/dL Magnesium 1.9 (1.6-2.6) mg/dL Total Bilirubin 0.5 (0.0-1.0) mg/dL AST 22 (5-31) U/L ALT 17 (0-31) U/L Alkaline Phosphatase 76 (39-117) U/L Troponin I High Sens < 2.7 (<3.5-17.0) ng/L Total Protein 7.3 (6.5-8.0) g/dL Albumin 4.1 (3.5-5.0) g/dL Lipase 47 (8-78) U/L Urine Color Yellow Urine Appearance Clear Urine pH 5.5 (5.0-9.0) Ur Specific [place] 1.025 (1.005-1.025) Urine Protein Negative (Neg-Trace) mg/dL Urine Glucose (UA) Negative (Negative) mg/dL Urine Ketones Trace (Negative) mg/dL Urine Blood Negative (Negative) Urine Nitrite Negative (Negative) Ur Leukocyte Esterase Moderate (2+) H (Negative) Urine RBC 0-2 (0-2) /HPF Urine WBC 11-20 H (0-5) /HPF Ur Squamous Epith Cells 6-10 (0-2) /HPF Urine Bacteria 1+ (None Seen) Hyaline Casts 0-2 (0-2) /LPF Discharge Plan Discharge Clinical Impression: Epileptic seizure Patient Disposition: Home, Self-Care Instructions: Epilepsy (ED) Additional Instructions: Take medication as prescribed on a regular basis and follow with neurologist Prescriptions: New levetiracetam [Keppra] 500 mg tablet 500 mg PO BID Qty: 180 1RF No Action prednisone 20 mg tablet 40 mg PO DAILY Qty: 10 0RF ibuprofen 600 mg tablet 600 mg PO Q6H PRN (Reason: fever or pain) Qty: 30 0RF cephalexin 500 mg capsule 500 mg PO Q8H 7 Days Qty: 21 0RF levetiracetam [Keppra] 500 mg tablet 500 mg PO BID Qty: 60 2RF levetiracetam 500 mg tablet 500 mg PO BID Qty: 60 0RF nystatin [Klayesta] 100,000 unit/gram powder 1 appl topical BID Qty: 15 0RF Rx Instructions: Apply to right breast in area of rash amoxicillin-pot clavulanate 875-125 mg tablet 1 tab PO BID 7 Days Qty: 14 0RF tramadol 50 mg tablet 50 mg PO Q6H PRN (Reason: pain) Qty: 20 0RF ondansetron 4 mg tablet,disintegrating 4 mg PO Q6-8H PRN (Reason: nausea and vomiting) Qty: 7 0RF vancomycin 125 mg capsule 125 mg PO QID 10 Days Qty: 40 0RF Interventions: ED Discharge Assessment Last Done: 11/09/23 18:37 Print Language: Maltese
--- NOTE | 2023-11-09 16:53 | ECG_ITS ---
Test Reason : CHEST PAIN Blood Pressure : / mmHG Vent. Rate : 074 BPM Atrial Rate : 074 BPM P-R Int : 154 ms QRS Dur : 086 ms QT Int : 400 ms P-R-T Axes : 025 -04 -02 degrees QTc Int : 444 ms Normal sinus rhythm Possible Anterior infarct , age undetermined Abnormal ECG When compared with ECG of 08-SEP-2023 18:33, Nonspecific T wave abnormality now evident in Anterior leads Referred By: Rosy Holliday Electronically Signed By:TIM PALAFOX
[2023-11-09 17:32] LABS: MANUAL DIFF FLAG NO
[2023-11-09 17:38] LABS: Appearance Urine Clear; Color Urine Yellow; Glucose Urine UA Negative (Negative); Leukocyte Esterase Urine Moderate (2+) (Negative); Nitrite Urine Negative (Negative); PH 5.5 (5.0-9.0); Specific Gravity - Urine 1.025 (1.005-1.025); UMIC TRIGGER UACC YES; Urine Blood Negative (Negative); Urine Ketones Trace mg/dL (Negative); Urine Protein Negative (Neg-Trace)
[2023-11-09 17:50] LABS: Basophils Percent Auto 0.5 % (0-2); Eosinophils Absolute Auto 0.1 X10*3/uL (0.0-0.4); Eosinophils Percent Auto 1.9 % (0-4); Hematocrit 37.9 % (37.0-47.0); Hemoglobin 13.1 g/dl (12.0-16.0); Imm Gran Abs Auto 0.01 X10*3/uL (0.00-0.03); Imm Gran Pct Auto 0.2 % (0.0-0.4); Lymphocytes Absolute Auto 2.3 X10*3/uL (1.2-4.9); Mean Corpuscular HGB Conc 34.6 g/dl (31.0-35.0); Mean Corpuscular Hemoglobin 30.5 pg (27.0-33.0); Mean Corpuscular Volume 88.1 fL (80.0-98.0); Mean Platelet Volume 10.9 fL (9.4-12.3); Monocytes Absolute Auto 0.4 X10*3/uL (0.1-1.2); Monocytes Percent Auto 7.1 % (2-11); Neutrophils Absolute Auto 2.9 x10*3/uL (2.0-8.3); Neutrophils Percent Auto 50.3 % (45-73); Platelet Count 143 X10*3/uL (160-400); Red Cell Distribution Width 12.9 % (11.0-16.0); White Blood Count 5.8 X10*3/uL (4.8-10.8)
[2023-11-09 17:54] LABS: Alanine Aminotransferase 17 U/L (0-31); Albumin Level 4.1 g/dL (3.5-5.0); Alkaline Phosphatase 76 U/L (39-117); Anion Gap 11 (12-20); Aspartate Amino Transferase 22 U/L (5-31); Bilirubin Total 0.5 mg/dL (0.0-1.0); Blood Urea Nitrogen 14 mg/dL (9-16); Calcium 9.4 mg/dL (8.4-10.2); Carbon Dioxide 28 mmol/L (22-29); Chloride 106 mmol/L (96-108); Creatinine Clr Calc Pharmacy 103.6; Estimated Glomerular Filt Rate > 60; Glucose Random 91 mg/dL (60-115); Lipase 47 U/L (8-78); Magnesium 1.9 mg/dL (1.6-2.6); Potassium 3.8 mmol/L (3.3-5.1); Sodium 141 mmol/L (135-145); Total Protein 7.3 g/dL (6.5-8.0)
[2023-11-09 18:00] VITALS: BP 105/55; PULSE 51; RESP 12; O2SAT 98
[2023-11-09 18:03] LABS: Troponin-I High Sensitivity < 2.7 ng/L (<3.5-17.0)
[2023-11-09 18:09] LABS: Bacteria Urine 1+ (None Seen); Hyaline Casts Urine 0-2 /LPF (0-2); RBC Urine 0-2 /HPF (0-2); UACC Culture Trigger YES
[2023-11-09] MEDS: levETIRAcetam 1,000 MG TABLET 1000 MG PO (18:32)
[2023-11-09] MEDS: Acetaminophen 325 MG TABLET 650 MG PO (18:32)
[2023-11-09 18:37] VITALS: BP 105/55; PULSE 51; RESP 18; TEMP 37.1; O2SAT 98
== END 2023-11-09 18:38 | disposition home or self-care (01) ==
PROVIDERS: Nurse Practitioner Family; Emergency Provider Internal Medicine
DX: R56.9 Unspecified convulsions (principal); R07.89 Other chest pain; Z91.199 Patient's noncompliance with other medical treatment and regimen due to unspecified reason; Z79.899 Other long term (current) drug therapy
CPT/HCPCS: 36415; 70450; 80053; 81001; 83690; 83735; 84484; 85025; 87086; 93005; 99284

== ENCOUNTER → 2023-11-09 16:53 | Outpatient (BNV) | payer MEDICAID, SELFPAY | PROVIDERS: Emergency Provider Internal Medicine; Visit Provider Internal Medicine | DX: R94.31 Abnormal electrocardiogram [ECG] [EKG] (principal) | CPT/HCPCS: 93010 ==

== ENCOUNTER 2023-11-09 19:30 | Emergency (ER) | payer MEDICAID, SELFPAY ==
[2023-11-09 19:36] VITALS: BP 150/70; PULSE 78; RESP 18; TEMP 36.8; O2SAT 98; BMI 38.0
[2023-11-09 20:49] VITALS: BP 94/64; PULSE 50; RESP 16; TEMP 36.2; O2SAT 97
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
== END 2023-11-10 06:34 | disposition home or self-care (01) ==
PROVIDERS: Emergency Provider Emergency Medicine
DX: R42 Dizziness and giddiness (principal); Z59.00 Homelessness unspecified; Z79.899 Other long term (current) drug therapy
CPT/HCPCS: 99283

== ENCOUNTER 2023-11-13 20:36 | Emergency (ER) | payer MEDICAID, SELFPAY ==
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
[2023-11-13 20:37] VITALS: BP 112/68; PULSE 84; RESP 16; TEMP 35.8; O2SAT 95; BMI 38.4
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
[2023-11-13] MEDS: Ibuprofen 600 MG TABLET PO (22:22)
--- NOTE | 2023-11-13 22:28 | PC.NURSE ---
pt left heel wrapped with mark wrap per provider verbal order, pt tolerated well.
[2023-11-13 22:29] VITALS: BP 126/84; PULSE 91; RESP 17; TEMP 37; O2SAT 94
[2023-11-13 22:37] VITALS: BP 120/78; PULSE 86; RESP 16; TEMP 36.9; O2SAT 95
== END 2023-11-13 22:44 | disposition home or self-care (01) ==
PROVIDERS: Emergency Provider Emergency Medicine
DX: S90.32XA Contusion of left foot, initial encounter (principal); W23.0XXA Caught, crushed, jammed, or pinched between moving objects, initial encounter; Y93.01 Activity, walking, marching and hiking; Y92.9 Unspecified place or not applicable; Y99.9 Unspecified external cause status
CPT/HCPCS: 73620; 99283; 99284

== ENCOUNTER 2023-11-15 21:23 | Emergency (ER) | payer MEDICAID, SELFPAY ==
[2023-11-15 21:29] VITALS: BP 115/74; PULSE 79; RESP 18; TEMP 36.6; O2SAT 97; BMI 38.4
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
[2023-11-15 23:48] VITALS: BP 110/63; PULSE 66; RESP 14; TEMP 36.5; O2SAT 95
[2023-11-16 00:26] VITALS: BP 110/63; PULSE 66; RESP 14; TEMP 36.5; O2SAT 95
== END 2023-11-16 00:15 | disposition home or self-care (01) ==
PROVIDERS: Emergency Provider Internal Medicine
DX: G40.409 Other generalized epilepsy and epileptic syndromes, not intractable, without status epilepticus (principal)
CPT/HCPCS: 99283; 99284

== ENCOUNTER 2023-11-18 21:54 | Emergency (ER) | payer MEDICAID, SELFPAY ==
[2023-11-18 22:09] VITALS: BP 124/71; PULSE 93; RESP 22; TEMP 36.6; O2SAT 97; BMI 38.5
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
[2023-11-18 23:26] VITALS: BP 109/68; PULSE 80; RESP 18; O2SAT 98
--- NOTE | 2023-11-19 00:01 | PC.NURSE ---
RICKEY VILLASEÑOR and [facility]I Advocate paged. states they will be out to see pt.
[2023-11-19 00:34] LABS: Alanine Aminotransferase 19 U/L (0-31); Aspartate Amino Transferase 23 U/L (5-31); Creatinine Clr Calc Pharmacy 89.8; Estimated Glomerular Filt Rate > 60
[2023-11-19 00:40] LABS: HCG Quantitative < 2 mIU/mL
--- NOTE | 2023-11-19 01:48 | PC.NURSE ---
RICKEY nurse at bedside.
[2023-11-19] MEDS: cefTRIAXone sodium 500 MG, Lidocaine HCl 1 % MPF 1 ML IM (02:54)
[2023-11-19] MEDS: metroNIDAZOLE 500 MG TABLET 2000 MG PO (02:55)
[2023-11-19] MEDS: Azithromycin 500 MG TABLET 1000 MG PO (02:55)
[2023-11-19] MEDS: levonorgestreL 1.5 MG TABLET PO (02:55)
[2023-11-19] MEDS: Prochlorperazine Maleate 5 MG TABLET 10 MG PO (02:55)
[2023-11-19 03:29] VITALS: BP 96/54; PULSE 57; RESP 16; O2SAT 97
[2023-11-19 06:13] VITALS: BP 105/70; PULSE 53; RESP 14; TEMP 36.6; O2SAT 98
[2023-11-19] MEDS: Post Exposure Medication Kit 1 KIT PO (07:30)
[2023-11-19 08:25] LABS: HBS Num1 0.61 mIU/mL (0-7.99); HBsAGNum1 0.18 S/CO (0.00-0.99); HIV AB/AG Nonreactive (Nonreactive); HIV Num 1 0.05 S/CO (0.00-0.99); Hepatitis B Surface Antigen Negative (Negative); ~HepC Num1 0.15 S/CO (0.00-0.79); ~Hepatitis B Surface Antibody NONREACTIVE (Nonreactive); ~Hepatitis C Antibody Nonreactive (Nonreactive)
[2023-11-19 08:29] VITALS: BP 105/70; PULSE 53; RESP 18; TEMP 36.6; O2SAT 98
--- NOTE | 2023-11-19 08:30 | PC.NURSE ---
Reviewed discharge paperwork and need to f/u with pcp / Patient stating she will f/u today. Aware of medications being called in to pharmacy and medications being sent home with . Patient d/c with all personal belongings
[2023-11-19 08:36] LABS: Syphilis Screen Nonreactive (Nonreactive)
== END 2023-11-19 08:32 | disposition home or self-care (01) ==
PROVIDERS: Emergency Provider Emergency Medicine; PCP Family Medicine
DX: T74.21XA Adult sexual abuse, confirmed, initial encounter (principal); S09.90XA Unspecified injury of head, initial encounter; Y04.8XXA Assault by other bodily force, initial encounter; R10.2 Pelvic and perineal pain; Z59.01 Sheltered homelessness
CPT/HCPCS: 36415; 82565; 84450; 84460; 84702; 86706; 86780; 86803; 87340; 87389; 96372; 99284; J0696

== ENCOUNTER 2023-11-20 00:29 | Emergency (ER) | payer MEDICAID, OTHER, SELFPAY ==
[2023-11-20 00:31] VITALS: BP 95/67; PULSE 76; RESP 18; TEMP 36.6; O2SAT 97; BMI 38.4
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
[2023-11-20] MEDS: Ondansetron ODT 4 MG TAB.RAPDIS TRANSLINGU (01:09)
--- NOTE | 2023-11-20 01:15 | PC.NURSE ---
pt medicated per provider order. effectiveness pending.
[2023-11-20 01:44] VITALS: BP 106/69; PULSE 60; RESP 20; TEMP 36.3; O2SAT 99
[2023-11-20 02:02] VITALS: BP 106/69; PULSE 60; RESP 20; TEMP 36.3; O2SAT 99
== END 2023-11-20 02:03 | disposition home or self-care (01) ==
PROVIDERS: Emergency Provider Emergency Medicine
DX: K42.9 Umbilical hernia without obstruction or gangrene (principal); E86.0 Dehydration; M25.562 Pain in left knee; Z79.899 Other long term (current) drug therapy
CPT/HCPCS: 99283

== ENCOUNTER 2023-12-01 19:29 | Emergency (ER) | payer MEDICAID, OTHER, SELFPAY ==
--- NOTE | 2023-12-01 | ECG_ITS ---
Test Reason : CHEST PAIN Blood Pressure : / mmHG Vent. Rate : 064 BPM Atrial Rate : 064 BPM P-R Int : 156 ms QRS Dur : 090 ms QT Int : 388 ms P-R-T Axes : 036 018 016 degrees QTc Int : 400 ms Normal sinus rhythm with sinus arrhythmia Cannot rule out Anterior infarct (cited on or before 09-NOV-2023) Abnormal ECG When compared with ECG of 09-NOV-2023 17:02, No significant change was found Referred By: Generic ED Physician Electronically Signed By:TIM PALAFOX
--- NOTE | ~2023-12-01 | XR_ITS ---
EXAMINATION: XR CHEST CLINICAL INFORMATION: Chest pain COMPARISON: None available. TECHNIQUE: Frontal view of the chest was obtained. FINDINGS: No significant abnormality is noted involving the heart, lungs, mediastinum, bony thorax or soft tissues. XR/XR chest 1V IMPRESSION: Unremarkable examination.
[2023-12-01 19:36] VITALS: BP 100/58; BP 125/86; PULSE 55; PULSE 74; RESP 17; TEMP 36.9; O2SAT 98; O2SAT 99; BMI 38.3
[2023-12-01 20:07] LABS: MANUAL DIFF FLAG NO
[2023-12-01 20:14] LABS: Basophils Percent Auto 0.5 % (0-2); Eosinophils Absolute Auto 0.2 X10*3/uL (0.0-0.4); Eosinophils Percent Auto 3.4 % (0-4); Hematocrit 35.6 % (37.0-47.0); Hemoglobin 12.6 g/dl (12.0-16.0); Imm Gran Abs Auto 0.01 X10*3/uL (0.00-0.03); Imm Gran Pct Auto 0.2 % (0.0-0.4); Lymphocytes Absolute Auto 1.7 X10*3/uL (1.2-4.9); Lymphocytes Percent Auto 29.9 % (20-40); Mean Corpuscular HGB Conc 35.4 g/dl (31.0-35.0); Mean Corpuscular Hemoglobin 30.9 pg (27.0-33.0); Mean Corpuscular Volume 87.3 fL (80.0-98.0); Mean Platelet Volume 10.2 fL (9.4-12.3); Monocytes Absolute Auto 0.4 X10*3/uL (0.1-1.2); Monocytes Percent Auto 7.6 % (2-11); Neutrophils Absolute Auto 3.2 x10*3/uL (2.0-8.3); Neutrophils Percent Auto 58.4 % (45-73); Platelet Count 133 X10*3/uL (160-400); Red Blood Count 4.08 X10*6/uL (4.20-5.50); Red Cell Distribution Width 12.6 % (11.0-16.0); White Blood Count 5.5 X10*3/uL (4.8-10.8)
[2023-12-01 20:24] LABS: Alanine Aminotransferase 16 U/L (0-31); Alkaline Phosphatase 66 U/L (39-117); Anion Gap 13 (12-20); Aspartate Amino Transferase 18 U/L (5-31); Bilirubin Total 0.6 mg/dL (0.0-1.0); Blood Urea Nitrogen 13 mg/dL (9-16); Calcium 9.3 mg/dL (8.4-10.2); Carbon Dioxide 25 mmol/L (22-29); Chloride 110 mmol/L (96-108); Creatinine Clr Calc Pharmacy 100.9; Estimated Glomerular Filt Rate > 60; Glucose Random 98 mg/dL (60-115); Potassium 3.5 mmol/L (3.3-5.1); Sodium 144 mmol/L (135-145)
--- NOTE | 2023-12-01 20:24 | ED_ITS ---
HPI - General Adult General Chief complaint: General Medical Stated complaint: CHEST PAIN Time Seen by Provider: 12/01/23 20:22 Source: patient and EMS Mode of arrival: EMS Limitations: no limitations History of Present Illness ED Provider: Kayleigh Carl PA-C HPI narrative: Patient is a 48 year old assigned female at with no reported medical history presenting to the emergency department today with chest pain. Patient states that she was sitting in her tent when she had sudden central chest pain Patient denies any dizziness, lightheadedness, abdominal pain, nausea, vomiting, fever, chills, blurry vision, double vision, loss of vision, difficulty breathing, shortness of breath, back pain, night sweats, pain with urination, increased urinary frequency, increased urinary urgency, blood in her urine or stool, syncope or a near syncopal episode, recent trauma or falls, bowel incontinence, bladder incontinence, or any other complaints at this time. Onset (ago): hour(s) Location: chest Severity: mild Severity scale (1-10): 4 Quality: aching and dull Pain Consistency: constant Relieving factors: none Exacerbating factors: none Associated symptoms: chest pain Treatments prior to arrival: none Related Data Previous Rx's ?Medication ?Instructions ?Recorded ibuprofen 600 mg tablet 600 mg PO Q6H PRN fever or pain 08/30/23 #30 tabs prednisone 20 mg tablet 40 mg (2 x 20 mg) PO DAILY #10 tabs 08/30/23 levetiracetam 500 mg tablet 500 mg PO BID #60 tabs 09/08/23 (Keppra) levetiracetam 500 mg tablet 500 mg PO BID #60 tabs 10/04/23 nystatin 100,000 unit/gram topical 1 appl topical BID #15 grams 10/04/23 powder (Klayesta) amoxicillin 875 mg-potassium 1 tab PO BID 7 days #14 tabs 10/14/23 clavulanate 125 mg tablet ondansetron 4 mg disintegrating 4 mg PO Q6-8H PRN nausea and 10/22/23 tablet vomiting #7 tabs tramadol 50 mg tablet 50 mg PO Q6H PRN pain #20 tabs 10/22/23 cephalexin 500 mg capsule 500 mg PO Q8H 7 days #21 caps 11/02/23 vancomycin 125 mg capsule 125 mg PO QID 10 days #40 caps 11/02/23 levetiracetam 500 mg tablet 500 mg PO BID #180 tabs 11/09/23 (Keppra) ibuprofen 600 mg tablet 600 mg PO TID PRN fever or pain 11/13/23 #14 tabs lorazepam 1 mg tablet (Ativan) 1 mg PO BEDTIME PRN anxiety #10 11/16/23 tabs emtricitabine 200 mg-tenofovir 1 tab PO DAILY #28 tabs 11/19/23 disoproxil fumarate 300 mg tablet (Truvada) raltegravir 400 mg tablet 400 mg PO BID 28 days #56 tabs 11/19/23 ondansetron 4 mg disintegrating 4 mg PO Q8H 4 days #12 tabs 11/20/23 tablet Allergies Allergy/AdvReac Type Severity Reaction Status Date / Time seafood Allergy Anaphylaxis Verified 12/01/23 19:44 Review of Systems 2 Constitutional: Constitutional: Reports no additional constitutional complaints, Denies chills, Denies fever(s) and Denies night sweats Eyes: Eyes: Reports no additional eye complaints, Denies blurry vision, Denies change in vision, Denies diplopia, Denies eye discharge, Denies loss of vision and Denies eye pain ENT: Denies dizziness Cardiovascular: Cardiovascular: Reports no additional cardiovascular complaints, Reports chest pain, Denies lightheadedness, Denies Loss of Consciousness and Denies dyspnea Respiratory: Respiratory: Reports no additional respiratory complaints and Denies dyspnea Gastrointestinal: Gastrointestinal: Reports no additional gastrointestinal complaints, Denies abdominal pain, Denies melena, Denies hematochezia, Denies change in bowel habits and Denies change in stool character Genitourinary: Genitourinary: Denies hematuria, Denies urinary frequency, Denies dysuria, Denies urinary incontinence, Denies urinary hesitancy and Denies urinary urgency Musculoskeletal: Musculoskeletal: Reports no additional musculoskeletal complaints, Denies numbness and Denies tingling Neurologic: Denies dizziness, Denies loss of vision, Denies numbness and Denies tingling Psychiatric: Psychiatric: Reports no additional psychiatric complaints Endocrine: Endocrine: Reports no additional endocrine complaints Hematologic/Lymphatic: Hematologic/Lymphatic: Reports no additional hematologic/lymphatic complaints Allergic/Immunologic: Allergic/Immunologic: Reports no additional allergic/immunologic complaints PMFSH Past Medical History Attestation statement: The following information was validated with the patient. Source: old records reviewed and nursing notes reviewed Medical History Miscarriage Seizure Social History Social History Alcohol intake: never Advance Directives: No Advance Directives Information Provided: No Physical Exam ED Vital Signs: Vital Signs - 24 hr 12/01/23 19:36 12/01/23 20:47 12/01/23 21:36 Temperature 98.5 F 98.6 F 98.1 F Pulse Rate 55 56 59 Respiratory Rate 17 12 14 Blood Pressure 100/58 L 120/60 104/57 L Pulse Oximetry 98 95 96 Oxygen Delivery Method Room Air Room Air Room Air 12/01/23 21:57 Temperature 98.1 F Pulse Rate 59 Respiratory Rate 14 Blood Pressure 104/57 L Pulse Oximetry 96 Oxygen Delivery Method Room Air BMI result Body Mass Index 38.3 Const General: cooperative, no acute distress, alert and awake Nutritional Appearance: well nourished Orientation/consciousness: patient oriented x3 Limitations: no limitations HENMT Head: Yes normal to inspection and Yes atraumatic Ears: hearing grossly normal bilaterally and external ears normal General nose exam: Normal external nose present, no nasal discharge noted and no epistaxis Face and sinus: Yes normal facial exam, No abrasion and No laceration Mouth: Normal oral and palatal mucosa present, no drooling and no muffled voice Eyes General: appearance normal, both eyes and all related structures Periorbital: periorbital findings normal Eyelids: Yes eyelids normal Conjunctivae: conjunctivae normal Pupils: Equal, round and reactive pupils present EOM: EOMs intact bilaterally Neck Neck: Yes normal visual inspection, Yes full ROM and Yes no lymphadenopathy Chest Chest palpation & inspection: normal inspection of the chest Resp Effort & Inspection: normal respiratory effort and able to speak in complete sentences GI Inspection: Yes normal to inspection Neuro General: patient oriented x3 and moves all extremities Cranial nerves: Yes Equal, round and reactive pupils present Cognition (Neuro): normal cognition Extrem General: Yes normal to inspection, Yes full ROM and Yes capillary refill normal Psych Appearance: grossly normal Mental Status: mental status grossly normal Affect: normal affect Attitude: cooperative Thought process: Normal thought process present Thought content: Normal thought content present Insight: Good insight present (Psych) Medications Administered Discontinued Medications Generic Name Dose Route Start Last Admin Trade Name Ayaka PRN Reason Stop Dose Admin Ketorolac Tromethamine 15 mg 12/01/23 20:25 12/01/23 20:48 Ketorolac Tromethamine 15 Mg/Ml Vial IVPUSH 12/01/23 20:26 15 mg ONCE ONE Administration Pantoprazole Sodium 40 mg 12/01/23 20:25 12/01/23 20:48 Pantoprazole Sodium 40 Mg/10 Ml Vial IVPUSH 12/01/23 20:26 40 mg ONCE ONE Administration Medical Decision Making Medical Decision Making [facility] Narrative: Patient is a 48 year old assigned female at with no reported medical history presenting to the emergency department today with chest pain. Patient's physical exam was unremarkable. Patient's blood work was unremarkable. Patient's EKG was unremarkable. Patient's chest x-ray showed no acute process. I explained my physical exam findings as well as all test results to the patient. I answered all questions asked by the patient. I stressed the importance of the patient taking her medication as directed (either prescribed or as the over the counter packaging recommends). I stressed the importance of the patient following up with her primary care provider. I stressed the importance of the patient returning to the emergency department immediately if her symptoms were to worsen or if she were to develop any dizziness, shortness of breath, difficulty breathing, chest pain, blurry vision, loss of vision, nausea, vomiting, abdominal pain, fever, chills, back pain, or any other complaints. Patient verbalized agreement and understanding with this treatment plan and discharge. Differential Diagnosis Differential Diagnoses: The differential diagnosis associated with the presentation includes Chest pain NSTEMI STEMI Costochondritis Admission/Observation Consideration of admission/observation: Escalation of care including admission/observation considered Patient would have been admitted to the hospital had her work up had any findings where hospital admission was appropriate and her clinical presentation warranted hospital admission. Lab Data [facility] Lab Attestation statement: I reviewed the patient's lab results. My interpretation of these results are in the [facility] Rationale portion of this note. 12/01/23 20:04 12/01/23 20:04 Labs: Lab Results 12/01/23 12/01/23 Range/Units 20:04 20:37 WBC 5.5 (4.8-10.8) X10*3/uL RBC 4.08 L (4.20-5.50) X10*6/uL Hgb 12.6 (12.0-16.0) g/dl Hct 35.6 L (37.0-47.0) % MCV 87.3 (80.0-98.0) fL MCH 30.9 (27.0-33.0) pg MCHC 35.4 H (31.0-35.0) g/dl RDW 12.6 (11.0-16.0) % Plt Count 133 L (160-400) X10*3/uL MPV 10.2 (9.4-12.3) fL Immature Gran % (Auto) 0.2 (0.0-0.4) % Neut % (Auto) 58.4 (45-73) % Lymph % (Auto) 29.9 (20-40) % [place] % (Auto) 7.6 (2-11) % Eos % (Auto) 3.4 (0-4) % Baso % (Auto) 0.5 (0-2) % Lymph # (Auto) 1.7 (1.2-4.9) X10*3/uL [place] # (Auto) 0.4 (0.1-1.2) X10*3/uL Eos # (Auto) 0.2 (0.0-0.4) X10*3/uL Baso # (Auto) 0.0 (0.0-0.2) X10*3/uL Abs Immat Gran (auto) 0.01 (0.00-0.03) X10*3/uL Absolute Neuts (auto) 3.2 (2.0-8.3) x10*3/uL Absolute Nucleated RBC 0.000 (0.0-0.012) X10*3/uL Nucleated RBC % (auto) 0.0 (0.0-0.2) /100WBC Sodium 144 (135-145) mmol/L Potassium 3.5 (3.3-5.1) mmol/L Chloride 110 H (96-108) mmol/L Carbon Dioxide 25 (22-29) mmol/L Anion Gap 13 (12-20) BUN 13 (9-16) mg/dL Creatinine 0.80 (0.5-1.4) mg/dL Estim Creat Clear Calc 100.9 Estimated GFR > 60 Random Glucose 98 (60-115) mg/dL Calcium 9.3 (8.4-10.2) mg/dL Total Bilirubin 0.6 (0.0-1.0) mg/dL AST 18 (5-31) U/L ALT 16 (0-31) U/L Alkaline Phosphatase 66 (39-117) U/L Troponin I High Sens < 2.7 (<3.5-17.0) ng/L Total Protein 7.0 (6.5-8.0) g/dL Albumin 4.0 (3.5-5.0) g/dL Influenza Type A (PCR) NEGATIVE (Negative) Influenza Type B (PCR) NEGATIVE (Negative) RSV RNA Qual (PCR) NEGATIVE (Negative) SARS-CoV-2 RNA (RT-PCR) NEGATIVE (Negative) Independent Interpretation I performed an independent interpretation of an: EKG and Plain X-Ray Interpretation: My interpretation is in agreement with the radiologist's impression of this imaging study. - EXAMINATION: XR CHEST CLINICAL INFORMATION: Chest pain COMPARISON: None available. TECHNIQUE: Frontal view of the chest was obtained. FINDINGS: No significant abnormality is noted involving the heart, lungs, mediastinum, bony thorax or soft tissues. XR/XR chest 1V IMPRESSION: Unremarkable examination. Dictated By: Candido Granados MD Signed By: Electronically signed by Candido Granados MD 12/01/23 9293 - Vent. Rate: 064 BPM Atrial Rate: 064 BPM P-R Int: 156 ms QRS Dur: 090 ms QT Int: 388 ms P-R-T Axes: 036 018 016 degrees QTc Int: 400 ms Normal sinus rhythm with sinus arrhythmia Cannot rule out Anterior infarct (cited on or before 09-NOV-2023) Abnormal ECG When compared with ECG of 09-NOV-2023 17:02, No significant change was found DD/ 30 Radiology Impression Discussion of test interpretation with radiology: I have reviewed the radiologist's reading. Independent Historian Clinical information obtained from an independent historian. History obtained from or confirmed by: EMS (EMS provided additional history and confirmed the history provided by the patient.) Discharge Plan Discharge Clinical Impression: Chest pain Patient Disposition: Home, Self-Care Instructions: Chest Pain (DC) Additional Instructions: Follow up with your primary care provider. Return to the emergency department immediately if your symptoms worsen or if you develop any dizziness, shortness of breath, difficulty breathing, chest pain, blurry vision, loss of vision, nausea, vomiting, abdominal pain, fever, chills, back pain, or any other complaints. Prescriptions: No Action prednisone 20 mg tablet 40 mg PO DAILY Qty: 10 0RF ibuprofen 600 mg tablet 600 mg PO Q6H PRN (Reason: fever or pain) Qty: 30 0RF cephalexin 500 mg capsule 500 mg PO Q8H 7 Days Qty: 21 0RF ibuprofen 600 mg tablet 600 mg PO TID PRN (Reason: fever or pain) Qty: 14 0RF lorazepam [Ativan] 1 mg tablet 1 mg PO BEDTIME PRN (Reason: anxiety) Qty: 10 0RF levetiracetam [Keppra] 500 mg tablet 500 mg PO BID Qty: 60 2RF levetiracetam 500 mg tablet 500 mg PO BID Qty: 60 0RF nystatin [Klayesta] 100,000 unit/gram powder 1 appl topical BID Qty: 15 0RF Rx Instructions: Apply to right breast in area of rash amoxicillin-pot clavulanate 875-125 mg tablet 1 tab PO BID 7 Days Qty: 14 0RF tramadol 50 mg tablet 50 mg PO Q6H PRN (Reason: pain) Qty: 20 0RF ondansetron 4 mg tablet,disintegrating 4 mg PO Q6-8H PRN (Reason: nausea and vomiting) Qty: 7 0RF vancomycin 125 mg capsule 125 mg PO QID 10 Days Qty: 40 0RF levetiracetam [Keppra] 500 mg tablet 500 mg PO BID Qty: 180 1RF emtricitabine-tenofovir (TDF) [Truvada] 200-300 mg tablet 1 tab PO DAILY Qty: 28 0RF raltegravir 400 mg tablet 400 mg PO BID 28 Days Qty: 56 0RF ondansetron 4 mg tablet,disintegrating 4 mg PO Q8H 4 Days Qty: 12 0RF Referrals: Veronica Fonseca MD [Primary Care Provider] - Interventions: ED Discharge Assessment Last Done: 12/01/23 21:57 Discharge Date/Time: 12/01/23 22:07 Print Language: Samoan
[2023-12-01 20:32] LABS: Troponin-I High Sensitivity < 2.7 ng/L (<3.5-17.0)
[2023-12-01 20:47] VITALS: BP 120/60; PULSE 56; RESP 12; TEMP 37; O2SAT 95
[2023-12-01] MEDS: Pantoprazole Sodium 40 MG/10 ML VIAL IVPUSH (20:48)
[2023-12-01] MEDS: Ketorolac Tromethamine 15 MG/ML VIAL IVPUSH (20:48)
[2023-12-01 21:21] LABS: Influenza A PCR NEGATIVE (Negative); Influenza B PCR NEGATIVE (Negative); Resp Syncy Virus RNA Qual PCR NEGATIVE (Negative); SARS COV2 PCR INHOUSE NEGATIVE (Negative)
[2023-12-01 21:36] VITALS: BP 104/57; PULSE 59; RESP 14; TEMP 36.7; O2SAT 96
[2023-12-01 21:57] VITALS: BP 104/57; PULSE 59; RESP 14; TEMP 36.7; O2SAT 96
== END 2023-12-01 22:07 | disposition home or self-care (01) ==
PROVIDERS: Physician Assistant Medical; Emergency Provider Emergency Medicine Emergency Medical Services; PCP Family Medicine
DX: R07.9 Chest pain, unspecified (principal); Z03.818 Encounter for observation for suspected exposure to other biological agents ruled out; Z79.899 Other long term (current) drug therapy
CPT/HCPCS: 0241U; 36415; 71045; 80053; 84484; 85025; 93005; 96374; 96375; 99284; J1885; J2470

== ENCOUNTER → 2023-12-01 19:31 | Outpatient (BNV) | payer MEDICAID, OTHER, SELFPAY | PROVIDERS: Emergency Provider Emergency Medicine Emergency Medical Services; PCP Family Medicine; Visit Provider Internal Medicine | DX: I49.9 Cardiac arrhythmia, unspecified (principal) | CPT/HCPCS: 93010 ==

== ENCOUNTER 2024-01-04 16:21 | Emergency (ER) | payer MEDICAID, SELFPAY ==
[2024-01-04 16:52] VITALS: BP 133/85; PULSE 77; RESP 18; TEMP 36.7; O2SAT 94; BMI 38.5
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
[2024-01-04 18:40] LABS: Basophils Percent Auto 0.4 % (0-2); Eosinophils Absolute Auto 0.1 X10*3/uL (0.0-0.4); Eosinophils Percent Auto 1.3 % (0-4); Hematocrit 40.8 % (37.0-47.0); Hemoglobin 13.9 g/dl (12.0-16.0); Mean Corpuscular HGB Conc 34.1 g/dl (31.0-35.0); PLT CLUMP 1; Red Cell Distribution Width 12.4 % (11.0-16.0); SCAN SMEAR FLAG 1
[2024-01-04 18:42] LABS: Imm Gran Abs Auto 0.02 X10*3/uL (0.00-0.03); Imm Gran Pct Auto 0.3 % (0.0-0.4); Lymphocytes Absolute Auto 2.2 X10*3/uL (1.2-4.9); Lymphocytes Percent Auto 31.9 % (20-40); MANUAL DIFF FLAG SCAN; Mean Corpuscular Hemoglobin 30.1 pg (27.0-33.0); Mean Corpuscular Volume 88.3 fL (80.0-98.0); Mean Platelet Volume 10.9 fL (9.4-12.3); Monocytes Absolute Auto 0.4 X10*3/uL (0.1-1.2); Neutrophils Absolute Auto 4.1 x10*3/uL (2.0-8.3); Neutrophils Percent Auto 60.1 % (45-73); Red Blood Count 4.62 X10*6/uL (4.20-5.50)
[2024-01-04 18:53] LABS: Alanine Aminotransferase 15 U/L (0-31); Albumin Level 4.4 g/dL (3.5-5.0); Alkaline Phosphatase 79 U/L (39-117); Anion Gap 11 (12-20); Aspartate Amino Transferase 19 U/L (5-31); Bilirubin Direct 0.1 mg/dL (0.0-0.5); Bilirubin Total 0.5 mg/dL (0.0-1.0); Blood Urea Nitrogen 13 mg/dL (9-16); Calcium 9.7 mg/dL (8.4-10.2); Carbon Dioxide 27 mmol/L (22-29); Chloride 110 mmol/L (96-108); Estimated Glomerular Filt Rate > 60; Glucose Random 95 mg/dL (60-115); Magnesium 2.1 mg/dL (1.6-2.6); Potassium 4.5 mmol/L (3.3-5.1); Sodium 143 mmol/L (135-145); Total Protein 7.7 g/dL (6.5-8.0)
[2024-01-04 18:54] LABS: IDNOW Serial# 58CA691E; Strep A Nucleic Acid Invalid (Negative)
[2024-01-04 19:03] LABS: Troponin-I High Sensitivity < 2.7 ng/L (<3.5-17.0)
[2024-01-04 19:13] LABS: Platelet Count 136 X10*3/uL (160-400); White Blood Count 6.9 X10*3/uL (4.8-10.8)
[2024-01-04 19:14] LABS: SLIDE REVIEW VERIFIED
[2024-01-04 19:16] LABS: Influenza A PCR NEGATIVE (Negative); Influenza B PCR NEGATIVE (Negative); Resp Syncy Virus RNA Qual PCR NEGATIVE (Negative); SARS COV2 PCR INHOUSE NEGATIVE (Negative)
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
[2024-01-04 22:11] VITALS: BP 136/77; PULSE 59; RESP 16; TEMP 36.8; O2SAT 97
[2024-01-05 00:29] VITALS: BP 98/63; PULSE 52; RESP 16; TEMP 36.7; O2SAT 97
[2024-01-05 00:46] VITALS: BP 98/63; PULSE 52; RESP 16; TEMP 36.7; O2SAT 97
== END 2024-01-05 00:47 | disposition home or self-care (01) ==
PROVIDERS: Physician Assistant Medical; Emergency Provider Emergency Medicine; PCP Family Medicine
DX: R47.89 Other speech disturbances (principal); Z03.818 Encounter for observation for suspected exposure to other biological agents ruled out; J02.9 Acute pharyngitis, unspecified; Z79.899 Other long term (current) drug therapy
CPT/HCPCS: 0241U; 80048; 80076; 83735; 84484; 85025; 87651; 99283; 99284

== ENCOUNTER 2024-02-10 09:57 | Emergency (ER) | payer MEDICAID, SELFPAY ==
--- NOTE | ~2024-02-10 | XR_ITS ---
EXAMINATION: XR ANKLE, LEFT. XR FOOT, LEFT. CLINICAL INFORMATION: Fall with pain COMPARISON: Left foot radiographs 11/13/2023 TECHNIQUE: 3 views of both ankle. 3 views of left foot. FINDINGS: The ankle mortise is preserved. No acute fracture or dislocation. Mild 1st MTP joint osteoarthritis. Heel spur. No significant change. XR/XR ankle LT min 3V IMPRESSION: No acute fracture or dislocation. Mild 1st MTP joint osteoarthritis. Electronically signed by: Kamran Alberts MD 02/10/2024 12:50 PM EDT
--- NOTE | ~2024-02-10 | XR_ITS ---
EXAMINATION: XR ANKLE, LEFT. XR FOOT, LEFT. CLINICAL INFORMATION: Fall with pain COMPARISON: Left foot radiographs 11/13/2023 TECHNIQUE: 3 views of both ankle. 3 views of left foot. FINDINGS: The ankle mortise is preserved. No acute fracture or dislocation. Mild 1st MTP joint osteoarthritis. Heel spur. No significant change. XR/XR foot LT 2V IMPRESSION: No acute fracture or dislocation. Mild 1st MTP joint osteoarthritis. Electronically signed by: Kamran Alberts MD 02/10/2024 12:50 PM EDT
--- NOTE | ~2024-02-10 | XR_ITS ---
EXAMINATION: XR LUMBOSACRAL SPINE CLINICAL INFORMATION: Fall with back pain COMPARISON: None available. TECHNIQUE: Three views of the lumbosacral spine. FINDINGS: No fracture. Mild degenerative disc disease at L2-L3, L4-L5, and L5-S1. Normal alignment and lumbar lordosis. XR/XR lumbar spine 2-3V IMPRESSION: Mild multilevel degenerative disc disease. No fracture. Electronically signed by: Kamran Alberts MD 02/10/2024 12:51 PM EDT
[2024-02-10 10:03] VITALS: BP 107/68; PULSE 71; RESP 18; TEMP 37.1; O2SAT 96; BMI 40.4
--- NOTE | 2024-02-10 11:17 | ED_ITS ---
HPI - General Adult General Chief complaint: Fall Stated complaint: fall-lower back pain-l foot pain-abd lump Time Seen by Provider: 02/10/24 10:48 Source: patient Mode of arrival: ambulatory Limitations: no limitations History of Present Illness ED Provider: Sal LOVE HPI narrative: 48 yold female with pmh of seizure presents to ED for left ankle pain and low back pain. Patient states this morning while getting out of her 10 her foot got caught under some rainbow treat structure and she fell back onto her lower back. Patient denies hitting head or loss of consciousness. Patient thought she heard a cracking ankle. Patient states able to ambulate on foot. Patient denies any chest pain, shortness of breath, abdominal pain, nausea, vomiting. Patient denies any dizziness before falling Related Data Previous Rx's ?Medication ?Instructions ?Recorded ibuprofen 600 mg tablet 600 mg PO Q6H PRN fever or pain 08/30/23 #30 tabs prednisone 20 mg tablet 40 mg (2 x 20 mg) PO DAILY #10 tabs 08/30/23 levetiracetam 500 mg tablet 500 mg PO BID #60 tabs 09/08/23 (Keppra) levetiracetam 500 mg tablet 500 mg PO BID #60 tabs 10/04/23 nystatin 100,000 unit/gram topical 1 appl topical BID #15 grams 10/04/23 powder (Klayesta) amoxicillin 875 mg-potassium 1 tab PO BID 7 days #14 tabs 10/14/23 clavulanate 125 mg tablet ondansetron 4 mg disintegrating 4 mg PO Q6-8H PRN nausea and 10/22/23 tablet vomiting #7 tabs tramadol 50 mg tablet 50 mg PO Q6H PRN pain #20 tabs 10/22/23 cephalexin 500 mg capsule 500 mg PO Q8H 7 days #21 caps 11/02/23 vancomycin 125 mg capsule 125 mg PO QID 10 days #40 caps 11/02/23 levetiracetam 500 mg tablet 500 mg PO BID #180 tabs 11/09/23 (Keppra) ibuprofen 600 mg tablet 600 mg PO TID PRN fever or pain 11/13/23 #14 tabs lorazepam 1 mg tablet (Ativan) 1 mg PO BEDTIME PRN anxiety #10 11/16/23 tabs emtricitabine 200 mg-tenofovir 1 tab PO DAILY #28 tabs 11/19/23 disoproxil fumarate 300 mg tablet (Truvada) raltegravir 400 mg tablet 400 mg PO BID 28 days #56 tabs 11/19/23 ondansetron 4 mg disintegrating 4 mg PO Q8H 4 days #12 tabs 11/20/23 tablet diphenhydramine HCl 25 mg capsule 25 mg PO TID PRN itching 5 days 02/10/24 (Benadryl) #15 caps hydrocortisone 0.5 % topical cream 1 appl topical BID PRN rash 2 02/10/24 weeks #28.4 grams naproxen 500 mg tablet 500 mg PO BID PRN pain 7 days #14 02/10/24 tabs prednisone 20 mg tablet 40 mg (2 x 20 mg) PO DAILY 5 days 02/10/24 #10 tabs Allergies Allergy/AdvReac Type Severity Reaction Status Date / Time seafood Allergy Anaphylaxis Verified 02/10/24 10:05 Review of Systems 2 Review of Systems: Low back pain. Left ankle pain Yes all other systems are reviewed and are negative FORMERLY [facility] Past Medical History Medical History Miscarriage Seizure Social History Social History Alcohol intake: never Advance Directives: No Advance Directives Information Provided: No Do you have a plan to hurt others: No Plan Physical Exam ED Vital Signs: Vital Signs - 24 hr 02/10/24 10:03 02/10/24 16:18 Temperature 98.8 F 97.9 F Pulse Rate 71 60 Respiratory Rate 18 20 Blood Pressure 107/68 126/66 Pulse Oximetry 96 97 Oxygen Delivery Method Room Air Room Air BMI result Body Mass Index 40.4 Const General: cooperative, healthy appearing, comfortable, no acute distress, well developed, alert, awake and Physically active Orientation/consciousness: patient oriented x3 HENMT Head: Yes normal to inspection, Yes No palpable skull fracture present, Yes normocephalic, Yes atraumatic and No abrasion Ears: hearing grossly normal bilaterally, external ears normal, TM's normal bilaterally, TM normal on the right, TM normal on the left, EAC's normal, mastoids normal and no periauricular adenopathy Eyes General: appearance normal, both eyes and all related structures Neck Neck: Yes normal visual inspection, Yes full ROM, Yes no lymphadenopathy, Yes no meningeal signs, Yes trachea midline, Yes supple, No anterior neck swelling and No tender Chest Chest palpation & inspection: normal inspection of the chest and normal palpation of entire chest wall Resp Effort & Inspection: normal respiratory effort and able to speak in complete sentences Auscultation: clear to auscultation bilaterally Cardio Jugular venous distension: no JVD Heart sounds: S1 normal heart sound present and S2 normal heart sound present GI Inspection: Yes normal to inspection Palpation (GI): Soft to palpation, not firm, nontender, no guarding and not rigid General: No CVA tenderness and Yes no CVA tenderness Back/Spine/Pelvis Back: no CVA tenderness, No CVA tenderness and back tenderness (lumbar) Skin General skin exam: no rashes or lesions noted, elasticity normal and turgor normal Neuro General: patient oriented x3, gait normal, tone normal, moves all extremities, Normal light touch and pain sensation, no meningeal signs, no focal motor deficits, CN's II-XI intact bilaterally and normal sensation to monofilament Extrem General: Yes normal to inspection, Yes full ROM and Yes capillary refill normal Ankle/foot/toe images: 2 1. positive for tenderness. negative for ecchymosmis, crepitus, deformity, redness, or swelling. motor, neuro, vascular exam is intact. Psych Appearance: grossly normal, well kempt and not disheveled Medications Administered Discontinued Medications Generic Name Dose Route Start Last Admin Trade Name Freq PRN Reason Stop Dose Admin Ketorolac Tromethamine 30 mg 02/10/24 12:31 02/10/24 12:40 Ketorolac Tromethamine 30 Mg/Ml Vial IM 02/10/24 12:32 30 mg ONCE ONE Administration Medical Decision Making Medical Decision Making MDM Narrative: 48-year-old female presents to ED for left ankle pain and low back pain after falling. Patient denies any hitting head, loss of consciousness, chest pain, shortness of breath, abdominal pain, rectal bleeding, vomiting blood, weakness. Patient states in both to ambulate on left lower extremity. Physical exam negative for signs of any life-threatening injury. X-rays are normal. Patient is safe for discharge. Not suspect a myocardial infarction, brain bleed, skull fracture, cervical spine fracture, compartment syndrome, DVT, osteomyelitis, rhabdomyolysis. Not suspect an epidural abscess or cauda equinus Before discharge had some right breast complaints for an itchy rash. physical exam negative for swelling, abscess, mass, nipple discharge, axxillary lymphadenaopthy, ecchymosis. positive for local uticarai rash/dermatitis. Differential Diagnosis Differential Diagnoses: The differential diagnosis associated with the presentation includes (Ankle fracture, foot fracture, ankle dislocation, lumbar spine fracture.) Admission/Observation Consideration of admission/observation: Escalation of care including admission/observation considered Independent Interpretation I performed an independent interpretation of an: Plain X-Ray Radiology Impression Discussion of test interpretation with radiology: I have reviewed the radiologist's reading. Independent Historian Clinical information obtained from an independent historian. History obtained from or confirmed by: Other (patient) External Record Review External record reviewed: Other (prior visits) Prescription Management I considered prescription management with: Pain Medication Discharge Plan Discharge Clinical Impression: Ankle sprain, Lumbar disc disease with radiculopathy Patient Disposition: Home, Self-Care Instructions: Ankle Sprain (ED), Lumbar Radiculopathy (ED), R.I.C.E. Treatment (ED), General Allergic Reaction (ED) Additional Instructions: Return to the ED immediately for any swelling of lower extremity, bluish black discoloration, redness, warmth, calf pain, chest pain, shortness of breath, urinary/bowel incontinence, worsening back pain, abdominal pain, nausea, vomiting, fever, chills, headache, chest pain, shortness of breath, flank pain, dysuria, hematuria, or weakness/paralysis of lower extremities. Recommend follow-up with primary care provider Prescriptions: New naproxen 500 mg tablet 500 mg PO BID PRN (Reason: pain) 7 Days Qty: 14 0RF diphenhydramine HCl [Benadryl] 25 mg capsule 25 mg PO TID PRN (Reason: itching) 5 Days Qty: 15 0RF prednisone 20 mg tablet 40 mg PO DAILY 5 Days Qty: 10 0RF hydrocortisone 0.5 % cream 1 appl topical BID PRN (Reason: rash) 14 Days Qty: 28.4 0RF Rx Instructions: on breast rash No Action prednisone 20 mg tablet 40 mg PO DAILY Qty: 10 0RF ibuprofen 600 mg tablet 600 mg PO Q6H PRN (Reason: fever or pain) Qty: 30 0RF cephalexin 500 mg capsule 500 mg PO Q8H 7 Days Qty: 21 0RF ibuprofen 600 mg tablet 600 mg PO TID PRN (Reason: fever or pain) Qty: 14 0RF lorazepam [Ativan] 1 mg tablet 1 mg PO BEDTIME PRN (Reason: anxiety) Qty: 10 0RF levetiracetam [Keppra] 500 mg tablet 500 mg PO BID Qty: 60 2RF levetiracetam 500 mg tablet 500 mg PO BID Qty: 60 0RF nystatin [Klayesta] 100,000 unit/gram powder 1 appl topical BID Qty: 15 0RF Rx Instructions: Apply to right breast in area of rash amoxicillin-pot clavulanate 875-125 mg tablet 1 tab PO BID 7 Days Qty: 14 0RF tramadol 50 mg tablet 50 mg PO Q6H PRN (Reason: pain) Qty: 20 0RF ondansetron 4 mg tablet,disintegrating 4 mg PO Q6-8H PRN (Reason: nausea and vomiting) Qty: 7 0RF vancomycin 125 mg capsule 125 mg PO QID 10 Days Qty: 40 0RF levetiracetam [Keppra] 500 mg tablet 500 mg PO BID Qty: 180 1RF emtricitabine-tenofovir (TDF) [Truvada] 200-300 mg tablet 1 tab PO DAILY Qty: 28 0RF raltegravir 400 mg tablet 400 mg PO BID 28 Days Qty: 56 0RF ondansetron 4 mg tablet,disintegrating 4 mg PO Q8H 4 Days Qty: 12 0RF Interventions: ED Discharge Assessment Last Done: 02/10/24 16:18 Discharge Date/Time: 02/10/24 16:19 Print Language: Japanese
[2024-02-10] MEDS: Ketorolac Tromethamine 30 MG/ML VIAL IM (12:40)
[2024-02-10 16:18] VITALS: BP 126/66; PULSE 60; RESP 20; TEMP 36.6; O2SAT 97
== END 2024-02-10 16:19 | disposition home or self-care (01) ==
PROVIDERS: Emergency Provider Emergency Medicine; PCP Family Medicine
DX: S93.402A Sprain of unspecified ligament of left ankle, initial encounter (principal); M54.16 Radiculopathy, lumbar region; M25.572 Pain in left ankle and joints of left foot; X58.XXXA Exposure to other specified factors, initial encounter; Y93.89 Activity, other specified; Y92.89 Other specified places as the place of occurrence of the external cause; Y99.8 Other external cause status; Z79.899 Other long term (current) drug therapy
CPT/HCPCS: 72100; 73610; 73620; 96372; 99283; 99284; J1885

== ENCOUNTER 2024-11-11 22:35 | Emergency (ER) | payer MEDICAID, SELFPAY ==
--- NOTE | 2024-11-11 | ECG_ITS ---
Test Reason : FALL/SEIZURE Blood Pressure : */* mmHG Vent. Rate : 55 BPM Atrial Rate : 55 BPM P-R Int : 136 ms QRS Dur : 90 ms QT Int : 430 ms P-R-T Axes : 9 3 8 degrees QTcB Int : 411 ms Sinus bradycardia Otherwise normal ECG When compared with ECG of 01-Dec-2023 19:31, No significant change was found Referred By: Generic ED Physician Electronically Signed By: Fernie Head
--- NOTE | ~2024-11-11 | CT_ITS ---
CLINICAL HISTORY: fall, syncope CT cervical spine without contrast Comparison: None provided Findings: Normal vertebral body alignment. Degenerative changes with disc osteophyte complexes at C5-6 and C6-7 resulting in severe central canal narrowing at these levels. No acute fractures or dislocations. No acute findings on limited view of the intracranial contents. Soft tissues of the neck are normal. No consolidation or effusion at the lung apices. IMPRESSION: 1. No acute fracture deformity. 2. Degenerative changes resulting in severe central canal narrowing at C5-6 and C6-7. This document has been electronically signed by: Heraclio Porter MD on 11/12/2024 02:48:50
--- NOTE | ~2024-11-11 | CT_ITS ---
CLINICAL HISTORY: fall syncope? CT head without contrast Comparison: None provided Findings: No intra-axial mass, midline shift, hydrocephalus, or acute hemorrhage. No significant atrophy-like change or white matter disease. The visualized paranasal sinuses and mastoid air cells are normal. The orbits are unremarkable. No skull fracture. IMPRESSION: 1. No acute intracranial findings. This document has been electronically signed by: Heraclio Porter MD on 11/12/2024 03:01:11
[2024-11-11 22:45] VITALS: BP 125/68; PULSE 81; O2SAT 95
[2024-11-11 22:47] VITALS: BP 120/78; PULSE 69; RESP 17; TEMP 36.8; O2SAT 95; BMI 46.4
[2024-11-11 23:36] LABS: MANUAL DIFF FLAG NO
[2024-11-11 23:37] LABS: Basophils Percent Auto 0.6 % (0-2); Eosinophils Absolute Auto 0.1 X10*3/uL (0.0-0.4); Eosinophils Percent Auto 1.7 % (0-4); Hematocrit 35.7 % (37.0-47.0); Hemoglobin 12.3 g/dl (12.0-16.0); Imm Gran Abs Auto 0.01 X10*3/uL (0.00-0.03); Imm Gran Pct Auto 0.2 % (0.0-0.4); Lymphocytes Absolute Auto 1.6 X10*3/uL (1.2-4.9); Lymphocytes Percent Auto 30.9 % (20-40); Mean Corpuscular HGB Conc 34.5 g/dl (31.0-35.0); Mean Corpuscular Hemoglobin 29.8 pg (27.0-33.0); Mean Corpuscular Volume 86.4 fL (80.0-98.0); Monocytes Absolute Auto 0.3 X10*3/uL (0.1-1.2); Monocytes Percent Auto 5.8 % (2-11); Neutrophils Absolute Auto 3.1 x10*3/uL (2.0-8.3); Neutrophils Percent Auto 60.8 % (45-73); Platelet Count 126 X10*3/uL (160-400); Red Blood Count 4.13 X10*6/uL (4.20-5.50); White Blood Count 5.2 X10*3/uL (4.8-10.8)
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
[2024-11-11 23:53] LABS: Alanine Aminotransferase 16 U/L (0-31); Albumin Level 4.2 g/dL (3.5-5.0); Alkaline Phosphatase 63 U/L (39-117); Anion Gap 10 (12-20); Aspartate Amino Transferase 21 U/L (5-31); Bilirubin Total 0.5 mg/dL (0.0-1.0); Blood Urea Nitrogen 14 mg/dL (9-16); Carbon Dioxide 24 mmol/L (22-29); Chloride 111 mmol/L (96-108); Creatinine Clr Calc Pharmacy 118.5; Estimated Glomerular Filt Rate > 60; Glucose Random 91 mg/dL (60-115); Potassium 3.6 mmol/L (3.3-5.1); Sodium 141 mmol/L (135-145); Total Protein 6.9 g/dL (6.5-8.0)
[2024-11-11 23:59] LABS: Troponin-I High Sensitivity < 2.7 ng/L (<3.5-17.0)
[2024-11-12 00:17] VITALS: BP 140/87; PULSE 87; RESP 16; TEMP 36.9; O2SAT 96
[2024-11-12] MEDS: levETIRAcetam 1,000 MG TABLET 1000 MG PO (00:18)
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
--- NOTE | 2024-11-12 00:21 | PC.NURSE ---
pt medicated per JUL. lights dimed.
[2024-11-12 00:30] LABS: Ethanol < 10 mg/dL
[2024-11-12 00:43] LABS: Lactic Acid 0.5 mmol/L (0.5-2.0)
[2024-11-12 02:47] VITALS: BP 108/65; PULSE 57; RESP 12; TEMP 36.6; O2SAT 94
[2024-11-12 06:12] VITALS: BP 102/55; PULSE 81; RESP 16; TEMP 36.6; O2SAT 96
== END 2024-11-12 06:12 | disposition home or self-care (01) ==
PROVIDERS: Emergency Provider Emergency Medicine
DX: R51.9 Headache, unspecified (principal); Z91.81 History of falling; Z91.148 Patient's other noncompliance with medication regimen for other reason; R56.9 Unspecified convulsions
CPT/HCPCS: 36415; 70450; 72125; 80053; 80307; 82550; 83605; 84484; 85025; 93005; 99284

== ENCOUNTER → 2024-11-11 23:05 | Outpatient (BNV) | payer SELFPAY | PROVIDERS: Emergency Provider Emergency Medicine; Visit Provider Internal Medicine Cardiovascular Disease | DX: R00.1 Bradycardia, unspecified (principal) | CPT/HCPCS: 93010 ==

== ENCOUNTER → 2024-11-12 00:13 | Outpatient (BNV) | payer SELFPAY | PROVIDERS: Emergency Provider Emergency Medicine; Visit Provider Radiology Diagnostic Radiology | DX: M50.322 Other cervical disc degeneration at C5-C6 level (principal); M50.323 Other cervical disc degeneration at C6-C7 level; M48.02 Spinal stenosis, cervical region; R55 Syncope and collapse | CPT/HCPCS: 70450; 72125 ==

== ENCOUNTER 2024-11-18 17:54 | Emergency (ER) | payer SELFPAY ==
--- NOTE | 2024-11-18 | ECG_ITS ---
Test Reason : DIZZINESS Blood Pressure : */* mmHG Vent. Rate : 64 BPM Atrial Rate : 64 BPM P-R Int : 168 ms QRS Dur : 88 ms QT Int : 410 ms P-R-T Axes : 51 -2 2 degrees QTcB Int : 422 ms Normal sinus rhythm Cannot rule out Anterior infarct , age undetermined Abnormal ECG When compared with ECG of 11-Nov-2024 23:05, Nonspecific T wave abnormality now evident in Anterior leads Referred By: Generic ED Physician Electronically Signed By: TIM PALAFOX
[2024-11-18 18:05] VITALS: BP 121/56; BP 142/86; PULSE 67; PULSE 88; RESP 20; TEMP 36.1; O2SAT 98; O2SAT 99; BMI 36.6
[2024-11-18 18:58] LABS: MANUAL DIFF FLAG NO
[2024-11-18 19:04] LABS: Basophils Percent Auto 0.5 % (0-2); Eosinophils Absolute Auto 0.1 X10*3/uL (0.0-0.4); Eosinophils Percent Auto 1.4 % (0-4); Hematocrit 36.1 % (37.0-47.0); Hemoglobin 12.2 g/dl (12.0-16.0); Imm Gran Abs Auto 0.04 X10*3/uL (0.00-0.03); Imm Gran Pct Auto 0.7 % (0.0-0.4); Lymphocytes Absolute Auto 1.5 X10*3/uL (1.2-4.9); Lymphocytes Percent Auto 27.5 % (20-40); Mean Corpuscular HGB Conc 33.8 g/dl (31.0-35.0); Mean Corpuscular Volume 88.7 fL (80.0-98.0); Mean Platelet Volume 11.2 fL (9.4-12.3); Monocytes Absolute Auto 0.3 X10*3/uL (0.1-1.2); Monocytes Percent Auto 5.8 % (2-11); Neutrophils Absolute Auto 3.5 x10*3/uL (2.0-8.3); Neutrophils Percent Auto 64.1 % (45-73); Platelet Count 142 X10*3/uL (160-400); Red Blood Count 4.07 X10*6/uL (4.20-5.50); Red Cell Distribution Width 13.2 % (11.0-16.0); White Blood Count 5.5 X10*3/uL (4.8-10.8)
[2024-11-18 19:17] LABS: Anion Gap 13 (12-20); Blood Urea Nitrogen 14 mg/dL (9-16); Calcium 9.4 mg/dL (8.4-10.2); Carbon Dioxide 25 mmol/L (22-29); Chloride 111 mmol/L (96-108); Creatinine Clr Calc Pharmacy 97.2; Estimated Glomerular Filt Rate > 60; Ethanol < 10 mg/dL; Glucose Random 99 mg/dL (60-115); Potassium 3.9 mmol/L (3.3-5.1); Sodium 145 mmol/L (135-145)
--- OUTSIDE RECORDS SUMMARY | 2024-11-18 19:17 | XMS_ITS | Clinical Summary ---
Author Organization [employer] Address [address] [place] [address] Care Team Providers Care Retail Personal Banker Name Role Phone Savita Juárez Unavailable Unavailable Veronica Fonseca MD Primary Care Provider [phone] Natalie Rosario Unavailable Unavailable Allergies Active Allergy [...] 09/03/2023 2:17 PM EDT Plan of Treatment Upcoming Encounters Date Type Department Care Team (Late st Contact Info) Description 12/15/2024 9:30 AM EDT Office Visit [place] [facility] [address] [place] [address] Veronica Fonseca MD [address] [place] [address] Health Maintenance Due Date Last Done Comments [...] patient's age to complete this topic Insurance [facility] C3 Care Teams Retail Personal Banker Relationship Specialty Start Date End Date Veronica Fonseca MD [address] [place] [address] PCP - General Family Medicine 09/03/23 Savita Juárez Community Health Worker 07/23/23 Natalie Rosario Health Navigator 10/05/23
[2024-11-18 19:20] LABS: Valproate < 12.5 mcg/mL (50.0-100.0)
[2024-11-18 19:24] LABS: Troponin-I High Sensitivity < 2.7 ng/L (<3.5-17.0)
[2024-11-18 19:34] LABS: Appearance Urine Cloudy; Color Urine Yellow; Glucose Urine UA Negative (Negative); Leukocyte Esterase Urine Moderate (2+) (Negative); Nitrite Urine Negative (Negative); PH 6.5 (5.0-9.0); Specific Gravity - Urine >= 1.030 (1.005-1.025); UMIC TRIGGER UACC YES; Urine Blood Negative (Negative); Urine Ketones Trace mg/dL (Negative); Urine Protein Trace mg/dL (Neg-Trace)
[2024-11-18 19:56] LABS: Bacteria Urine 4+ (None Seen); Hyaline Casts Urine 0-2 /LPF (0-2); RBC Urine 0-2 /HPF (0-2); Squamous Epithelial Cell Urine >20 /HPF (0-2); UACC Culture Trigger YES
[2024-11-18 22:11] VITALS: BP 120/96; PULSE 59; RESP 20; TEMP 36.4; O2SAT 98
[2024-11-18] MEDS: levETIRAcetam in NaCl (iso-os) 1,500 MG/100 ML PIGGYBACK 400 MG IV (22:33)
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
[2024-11-18 22:55] VITALS: BP 117/64; PULSE 55; RESP 16; TEMP 37.2; O2SAT 98
[2024-11-18] MEDS: Acetaminophen 325 MG TABLET 975 MG PO (22:56)
[2024-11-19 00:08] VITALS: BP 104/67; PULSE 53; RESP 15; TEMP 36.6; O2SAT 96
[2024-11-19 00:09] VITALS: BP 104/67; PULSE 53; RESP 15; TEMP 36.6; O2SAT 96
[2024-11-22 01:23] LABS: Levetiracetam Keppra <2.0 mcg/mL (6.0-46.0)
== END 2024-11-19 00:19 | disposition home or self-care (01) ==
PROVIDERS: Emergency Provider Emergency Medicine
DX: F41.9 Anxiety disorder, unspecified (principal); R51.9 Headache, unspecified; G40.909 Epilepsy, unspecified, not intractable, without status epilepticus; Z91.148 Patient's other noncompliance with medication regimen for other reason; Z72.89 Other problems related to lifestyle; Z59.10 Inadequate housing, unspecified; Z59.00 Homelessness unspecified
CPT/HCPCS: 36415; 80048; 80164; 80177; 80307; 81001; 84484; 85025; 87086; 93005; 96365; 99284; 99285; J1953

== ENCOUNTER → 2024-11-18 18:44 | Outpatient (BNV) | payer MEDICAID, SELFPAY | PROVIDERS: Emergency Provider Emergency Medicine; Visit Provider Internal Medicine | DX: R94.31 Abnormal electrocardiogram [ECG] [EKG] (principal); R42 Dizziness and giddiness | CPT/HCPCS: 93010 ==

== ENCOUNTER 2024-11-25 18:56 | Emergency (ER) | payer MEDICAID, SELFPAY ==
--- OUTSIDE RECORDS SUMMARY | 2010-10-18 20:00 | XMS_ITS | Continuity of Care Document ---
Author Organization [facility] ic Address [address] [place] [address] [place] [address] Phone Care Team Providers Care Mail Service Coordinator Name Role Phone Aurora Shook MD Unavailable Unavailable Procedures Procedure Date HOSPITAL DISCHARGE DAY VISIT SUBSEQUENT HOSPITAL CARE Advance Directives Directive Yes / No Effective Date File Name No Information Encounters Encounter Description Practice Location Reason(s) For Visit Diagnoses Date Provider Providers Copied on Encounter HOSPITAL DISCHARGE DAY VISIT [facility], [address] [place] [address], [id number], tel:[phone] [facility] Inpatient No Information Boone Simon. [address] [place] [address], [id number], [place]. tel:[phone] SUBSEQUENT HOSPITAL CARE [facility], [address] [place] [address], [id number], tel:[phone] [facility] Inpatient No Information No Information Family History Family Member Type Diagnosis Age At Onset No Information Payers Payer name Insurance type Covered green party ID Authoriza tion(s) No Information Social History Type Description Quantity Date Captured Comments Sex Female Smoking Status No Information Chief Complaint And Reason For Visit No Information Reason For Referral Reason For Referral No Information History Of Present Illness Encounter Date Complaint History Of Prese nt Illness No Information Functional Status Date Functional Assessmen t No Information Instructions Date Instruction Additional Infor mation No Information Assessments Type Assessment Date No Information Patient Care Teams Name Effective Dates (start - stop) Status Members No Information
--- NOTE | ~2024-11-25 | CT_ITS ---
CLINICAL HISTORY: pain, umbilical hernia CT abdomen and pelvis with contrast Comparison: Prior abdominal and pelvic CTs most recently on 09/24/2023 Findings: Mild bibasilar atelectatic changes. Liver, spleen, adrenal glands, pancreas, gallbladder, and kidneys are unremarkable. Noncalcified and nonaneurysmal abdominal aorta. Unremarkable urinary bladder. Anteverted uterus. Nondistended stomach. Normal caliber small bowel. No obstruction. Colon is unremarkable. Normal appendix. No definite pathologically enlarged lymph nodes. No acute osseous abnormality. No lytic or sclerotic osseous lesions. There is increased attenuation/stranding within central and left paracentral abdominal mesentery with few scattered shotty reactive lymph nodes. These findings are unchanged when compared to prior exam. Compared to prior exam, mild increase in the size of fat containing umbilical hernia with the defect measuring 2.7 cm in transverse plane and 2.2 cm in craniocaudal extent. Impression: 1. No acute findings identified in the abdomen or pelvis. 2. Slight increase in size of fat containing umbilical hernia. 3. Stable appearance of increased stranding/attenuation throughout midline/left paramidline abdominal mesentery with associated scattered reactive lymph nodes. Differential diagnostic considerations include edema with possibility of infectious or inflammatory mesenteritis not excluded. Neoplastic infiltration is thought to be less likely. 4. Additional findings as above. This document has been electronically signed by: Zuly Dominguez MD on 11/25/2024 23:30:52
[2024-11-25 19:03] VITALS: BP 122/78; BP 140/86; PULSE 64; PULSE 75; RESP 18; TEMP 36.7; O2SAT 98; BMI 42.0
[2024-11-25 19:29] LABS: MANUAL DIFF FLAG NO
[2024-11-25 19:31] LABS: Hematocrit 36.3 % (37.0-47.0); Hemoglobin 12.3 g/dl (12.0-16.0); Imm Gran Abs Auto 0.00 X10*3/uL (0.00-0.03); Imm Gran Pct Auto 0.0 % (0.0-0.4); Lymphocytes Absolute Auto 1.9 X10*3/uL (1.2-4.9); Mean Corpuscular HGB Conc 33.9 g/dl (31.0-35.0); Mean Corpuscular Hemoglobin 29.1 pg (27.0-33.0); Mean Corpuscular Volume 86.0 fL (80.0-98.0); NRBC Abs Auto 0.000 X10*3/uL (0.0-0.012); NRBC Pct Auto 0.0 /100WBC (0.0-0.2); Platelet Count 152 X10*3/uL (160-400); Red Blood Count 4.22 X10*6/uL (4.20-5.50); White Blood Count 5.6 X10*3/uL (4.8-10.8)
[2024-11-25 19:48] LABS: Alanine Aminotransferase 19 U/L (0-31); Albumin Level 4.2 g/dL (3.5-5.0); Alkaline Phosphatase 65 U/L (39-117); Anion Gap 12 (12-20); Aspartate Amino Transferase 20 U/L (5-31); Blood Urea Nitrogen 14 mg/dL (9-16); Calcium 9.2 mg/dL (8.4-10.2); Carbon Dioxide 26 mmol/L (22-29); Chloride 109 mmol/L (96-108); Creatinine Clr Calc Pharmacy 71.8; Estimated Glomerular Filt Rate 49; Lipase 35 U/L (8-78); Potassium 3.7 mmol/L (3.3-5.1); Sodium 143 mmol/L (135-145); Total Protein 6.9 g/dL (6.5-8.0)
[2024-11-25 20:57] LABS: Appearance Urine Clear; Glucose Urine UA Negative (Negative); PH 8.5 (5.0-9.0); Specific Gravity - Urine 1.020 (1.005-1.025); UMIC TRIGGER UACC YES
[2024-11-25] MEDS: Lactated Ringers 1,000 ML 999 ML IV (21:52)
[2024-11-25 21:59] VITALS: BP 104/63; PULSE 57; RESP 16; O2SAT 95
[2024-11-25 22:00] VITALS: O2SAT 95
[2024-11-25] MEDS: iohexoL 350 MG/ML 100 ML INFUS..BTL IV (22:33)
--- NOTE | 2024-11-25 23:04 | ED.ABDPAIN ---
HPI - Abdominal Pain General Chief Complaint: Abdominal Pain Stated Complaint: abd pain Time Seen by Provider: 11/25/24 20:57 Source: patient, EMS and old records reviewed Mode of arrival: EMS Limitations: no limitations History of Present Illness ED Provider: SARA HPI narrative: 49 yo female with PMH of seizures on keppra and compliant now after recent refill, housing insecurity who has had a chronic umbilical hernia for 9 months and notes today it became more painful and she keeps vomiting though she can keep her keppra down. She did have flatus and BM today. She notes the hernia is always out and never goes in. She just came back from [facility] and notes it has been more painful when she moves and coughs. MD elicited complaint: abdominal pain Pertinent past history: other Onset (ago): day(s) (1) Pain Consistency: constant Location: periumbilical Severity: moderate Quality: stabbing Radiation: none Migration to: no migration Exacerbating factors: vomiting and movement Relieving factors: nothing Context: history of similar episodes Associated symptoms: nausea and vomiting Related Data Previous Rx's ?Medication ?Instructions ?Recorded ibuprofen 600 mg tablet 600 mg PO Q6H PRN fever or pain 08/30/23 #30 tabs prednisone 20 mg tablet 40 mg (2 x 20 mg) PO DAILY #10 tabs 08/30/23 levetiracetam 500 mg tablet 500 mg PO BID #60 tabs 09/08/23 (Keppra) levetiracetam 500 mg tablet 500 mg PO BID #60 tabs 10/04/23 nystatin 100,000 unit/gram topical 1 appl topical BID #15 grams 10/04/23 powder (Klayesta) amoxicillin 875 mg-potassium 1 tab PO BID 7 days #14 tabs 10/14/23 clavulanate 125 mg tablet ondansetron 4 mg disintegrating 4 mg PO Q6-8H PRN nausea and 10/22/23 tablet vomiting #7 tabs tramadol 50 mg tablet 50 mg PO Q6H PRN pain #20 tabs 10/22/23 cephalexin 500 mg capsule 500 mg PO Q8H 7 days #21 caps 11/02/23 vancomycin 125 mg capsule 125 mg PO QID 10 days #40 caps 11/02/23 levetiracetam 500 mg tablet 500 mg PO BID #180 tabs 11/09/23 (Keppra) ibuprofen 600 mg tablet 600 mg PO TID PRN fever or pain 11/13/23 #14 tabs lorazepam 1 mg tablet (Ativan) 1 mg PO BEDTIME PRN anxiety #10 11/16/23 tabs emtricitabine 200 mg-tenofovir 1 tab PO DAILY #28 tabs 11/19/23 disoproxil fumarate 300 mg tablet (Truvada) raltegravir 400 mg tablet 400 mg PO BID 28 days #56 tabs 11/19/23 ondansetron 4 mg disintegrating 4 mg PO Q8H 4 days #12 tabs 11/20/23 tablet diphenhydramine HCl 25 mg capsule 25 mg PO TID PRN itching 5 days 02/10/24 (Benadryl) #15 caps hydrocortisone 0.5 % topical cream 1 appl topical BID PRN rash 2 02/10/24 weeks #28.4 grams naproxen 500 mg tablet 500 mg PO BID PRN pain 7 days #14 02/10/24 tabs prednisone 20 mg tablet 40 mg (2 x 20 mg) PO DAILY 5 days 02/10/24 #10 tabs levetiracetam 500 mg tablet 500 mg PO BID #60 tabs 11/18/24 (Roweepra) Allergies Allergy/AdvReac Type Severity Reaction Status Date / Time seafood Allergy Severe Anaphylaxis Verified 11/25/24 19:05 Review of Systems Review of Systems Constitutional : No Weight loss, No Fever, No Chills ENT/Mouth : No sore throat, No Rhinorrhea Eyes: No Swelling, No Redness Cardiovascular : No Chest Pain, No SOB, NoEdema Respiratory : No Cough, No Sputum, No Wheezing Gastrointestinal : Positive Nausea, Positive Vomiting, no Diarrhea, positive abdominal Pain, No Hematochezia, No Melena Genitourinary : No Dysuria, No Urinary Frequency, No Hematuria, No Urgency Musculoskeletal : No joint pain, No Myalgias, No Joint Swelling Skin : No Skin Lesions, No rash Neuro : No Weakness, No Numbness, No Dizziness, No Headache All other systems reviewed and are negative. [facility] Past Medical History Attestation statement: The following information was validated with the patient. Source: old records reviewed Medical History Miscarriage Seizure Social History Social History Unable to assess alcohol history related to: Unknown Alcohol intake: never Smoked in Last 30 Days: Yes Use of substances other than those prescribed or required for medical reasons: No Advance Directives: No Advance Directives Information Provided: No Do you have a plan to hurt others: No Plan Physical Exam ED Vital Signs: Vital Signs - 24 hr 11/25/24 19:03 11/25/24 21:59 11/25/24 22:00 Temperature 98.1 F Pulse Rate 64 57 Respiratory Rate 18 16 Blood Pressure 122/78 104/63 Pulse Oximetry 98 95 95 Oxygen Delivery Method Room Air Room Air Nasal Cannula Oxygen Flow Rate 2 11/25/24 23:37 Temperature 97.5 F Pulse Rate 58 Respiratory Rate 14 Blood Pressure 96/62 Pulse Oximetry 95 Oxygen Delivery Method Nasal Cannula Oxygen Flow Rate 2 BMI result Body Mass Index 42.0 Appearance: Alert. Oriented X3. No acute distress. Eyes: Pupils equal, round and reactive to light. ENT: Pharynx normal. Neck: Normal inspection. Neck supple. CVS: Normal heart rate and rhythm. Pulses normal. Respiratory: No respiratory distress. Breath sounds normal. Abdomen: Soft and there is unreducible umbilical hernia despite ice and IV pain medications there is no discoloration but she reports sig ttp Skin: Skin warm and dry. Normal skin color. Normal skin turgor. Extremities: No lower extremity edema. No calf ttp Neuro: Oriented X 3. No motor deficit. No sensory deficit. CN2-12 intact Course Course Course Narrative: suspect low BP and low O2 is post dilaudid will continue to observe Medical Decision Making Medical Decision Making MDM Narrative: 49 yo female with PMH of seizures on keppra and compliant now after recent refill, housing insecurity who has had a chronic umbilical hernia for 9 months now here with pain at hernia and n/v but had BM and flatus today. She is very tender hernia cannot be reduced but she states it has never been reduced and is always protruding, there is no discoloration. At this time given her complaints will start on IV pain medications and obtain CT scan for SBO, incarceration. Differential Diagnosis Differential Diagnoses: The differential diagnosis associated with the presentation includes chronic hernia, incarcerated hernia, SBO, PSBO Admission/Observation Consideration of admission/observation: Escalation of care including admission/observation considered fat containing hernia no indication for emergent surgery can be treated with pain control for mesenteric adenitis Lab Data MDM Lab Attestation statement: I reviewed the patient's lab results. 11/25/24 19:26 11/25/24 19:26 Labs: Lab Results 11/25/24 11/25/24 Range/Units 19:26 20:46 WBC 5.6 (4.8-10.8) X10*3/uL RBC 4.22 (4.20-5.50) X10*6/uL Hgb 12.3 (12.0-16.0) g/dl Hct 36.3 L (37.0-47.0) % MCV 86.0 (80.0-98.0) fL MCH 29.1 (27.0-33.0) pg MCHC 33.9 (31.0-35.0) g/dl RDW 13.2 (11.0-16.0) % Plt Count 152 L (160-400) X10*3/uL MPV 10.5 (9.4-12.3) fL Immature Gran % (Auto) 0.0 (0.0-0.4) % Neut % (Auto) 51.9 (45-73) % Lymph % (Auto) 33.5 (20-40) % [place] % (Auto) 7.2 (2-11) % Eos % (Auto) 6.7 H (0-4) % Baso % (Auto) 0.7 (0-2) % Lymph # (Auto) 1.9 (1.2-4.9) X10*3/uL [place] # (Auto) 0.4 (0.1-1.2) X10*3/uL Eos # (Auto) 0.4 (0.0-0.4) X10*3/uL Baso # (Auto) 0.0 (0.0-0.2) X10*3/uL Abs Immat Gran (auto) 0.00 (0.00-0.03) X10*3/uL Absolute Neuts (auto) 2.9 (2.0-8.3) x10*3/uL Absolute Nucleated RBC 0.000 (0.0-0.012) X10*3/uL Nucleated RBC % (auto) 0.0 (0.0-0.2) /100WBC Sodium 143 (135-145) mmol/L Potassium 3.7 (3.3-5.1) mmol/L Chloride 109 H (96-108) mmol/L Carbon Dioxide 26 (22-29) mmol/L Anion Gap 12 (12-20) BUN 14 (9-16) mg/dL Creatinine 1.17 (0.5-1.4) mg/dL Estim Creat Clear Calc 71.8 Estimated GFR 49 Random Glucose 95 (60-115) mg/dL Calcium 9.2 (8.4-10.2) mg/dL Total Bilirubin 0.6 (0.0-1.0) mg/dL AST 20 (5-31) U/L ALT 19 (0-31) U/L Alkaline Phosphatase 65 (39-117) U/L Total Protein 6.9 (6.5-8.0) g/dL Albumin 4.2 (3.5-5.0) g/dL Lipase 35 (8-78) U/L Urine Color Yellow Urine Appearance Clear Urine pH 8.5 (5.0-9.0) Ur Specific [place] 1.020 (1.005-1.025) Urine Protein Negative (Neg-Trace) mg/dL Urine Glucose (UA) Negative (Negative) mg/dL Urine Ketones Trace (Negative) mg/dL Urine Blood Negative (Negative) Urine Nitrite Negative (Negative) Ur Leukocyte Esterase Trace H (Negative) Urine RBC 0-2 (0-2) /HPF Urine WBC 0-5 (0-5) /HPF Ur Squamous Epith Cells 0-2 (0-2) /HPF Urine Bacteria None Seen (None Seen) Hyaline Casts 0-2 (0-2) /LPF Independent Interpretation I performed an independent interpretation of an: CT Scan (fat containing hernia) Radiology Impression Discussion of test interpretation with radiology: I have reviewed the radiologist's reading. Independent Historian Clinical information obtained from an independent historian. History obtained from or confirmed by: EMS External Record Review External record reviewed: Inpatient record and Outpatient record Social Determinants Patient?s care significantly limited by Social Determinants of Health including: Inadequate housing, Problems related to primary support group and Unemployment Medications Administered Discontinued Medications Generic Name Dose Route Start Last Admin Trade Name Freq PRN Reason Stop Dose Admin Hydromorphone HCl 1 mg 11/25/24 21:26 11/25/24 21:50 Hydromorphone Hcl 1 Mg/Ml Syringe IVPUSH 11/25/24 21:27 1 mg ONCE ONE Administration Protocol Lactated Ringer's 1,000 mls @ 999 mls/hr 11/25/24 21:26 11/25/24 22:53 Lr IV 11/25/24 22:26 Infused .Q1H1M ONE Infusion Lactated Ringer's 1,000 mls @ 999 mls/hr 11/25/24 23:39 11/26/24 00:06 Lr IV 11/26/24 00:39 999 mls/hr .Q1H1M ONE Administration Iohexol 100 ml 11/25/24 22:27 11/25/24 22:33 Iohexol 350 Mg/Ml 100 Ml Infus..Btl IV 11/25/24 22:28 100 ml ONCE ONE Administration Ondansetron HCl 4 mg 11/25/24 21:26 11/25/24 21:50 Ondansetron Hcl 4 Mg/2 Ml Vial IVPUSH 11/25/24 21:27 4 mg ONCE ONE Administration Discharge Plan Discharge Clinical Impression: Hernia, umbilical, Mesenteric adenitis Patient Disposition: Home, Self-Care Instructions: Umbilical Hernia (ED), Mesenteric Adenitis (ED) Additional Instructions: labs reassuring hernia is fat not bowel containing this can be managed as outpatient and elective you have some signs of nonspecific inflammation of the lymph nodes in the abdomen - this is usually self limiting but you want to make sure you doctor follows this for the next 6 months return for any worsening symptoms or concerns. Prescriptions: No Action prednisone 20 mg tablet 40 mg PO DAILY Qty: 10 0RF ibuprofen 600 mg tablet 600 mg PO Q6H PRN (Reason: fever or pain) Qty: 30 0RF cephalexin 500 mg capsule 500 mg PO Q8H 7 Days Qty: 21 0RF ibuprofen 600 mg tablet 600 mg PO TID PRN (Reason: fever or pain) Qty: 14 0RF lorazepam [Ativan] 1 mg tablet 1 mg PO BEDTIME PRN (Reason: anxiety) Qty: 10 0RF naproxen 500 mg tablet 500 mg PO BID PRN (Reason: pain) 7 Days Qty: 14 0RF diphenhydramine HCl [Benadryl] 25 mg capsule 25 mg PO TID PRN (Reason: itching) 5 Days Qty: 15 0RF prednisone 20 mg tablet 40 mg PO DAILY 5 Days Qty: 10 0RF hydrocortisone 0.5 % cream 1 appl topical BID PRN (Reason: rash) 14 Days Qty: 28.4 0RF Rx Instructions: on breast rash levetiracetam [Roweepra] 500 mg tablet 500 mg PO BID Qty: 60 0RF levetiracetam [Keppra] 500 mg tablet 500 mg PO BID Qty: 60 2RF levetiracetam 500 mg tablet 500 mg PO BID Qty: 60 0RF nystatin [Klayesta] 100,000 unit/gram powder 1 appl topical BID Qty: 15 0RF Rx Instructions: Apply to right breast in area of rash amoxicillin-pot clavulanate 875-125 mg tablet 1 tab PO BID 7 Days Qty: 14 0RF tramadol 50 mg tablet 50 mg PO Q6H PRN (Reason: pain) Qty: 20 0RF ondansetron 4 mg tablet,disintegrating 4 mg PO Q6-8H PRN (Reason: nausea and vomiting) Qty: 7 0RF vancomycin 125 mg capsule 125 mg PO QID 10 Days Qty: 40 0RF levetiracetam [Keppra] 500 mg tablet 500 mg PO BID Qty: 180 1RF emtricitabine-tenofovir (TDF) [Truvada] 200-300 mg tablet 1 tab PO DAILY Qty: 28 0RF raltegravir 400 mg tablet 400 mg PO BID 28 Days Qty: 56 0RF ondansetron 4 mg tablet,disintegrating 4 mg PO Q8H 4 Days Qty: 12 0RF Referrals: [facility] General Surgeons [Provider Group, General Surgery] Referral Note: call ambulance officer will review note and schedule appointment for you Print Language: [place] Irish
[2024-11-25 23:37] VITALS: BP 96/62; PULSE 58; RESP 14; TEMP 36.4; O2SAT 95
[2024-11-26] MEDS: Lactated Ringers 1,000 ML 999 ML IV (00:06)
[2024-11-26 01:46] VITALS: BP 110/62; PULSE 52; RESP 12; TEMP 36.4; O2SAT 98
[2024-11-26 01:50] VITALS: O2SAT 95
[2024-11-26 05:15] VITALS: BP 95/62; PULSE 62; RESP 11; TEMP 36.4; O2SAT 99
[2024-11-26 05:21] VITALS: BP 95/62; PULSE 62; RESP 20; TEMP 36.4; O2SAT 99
== END 2024-11-26 05:21 | disposition home or self-care (01) ==
PROVIDERS: Emergency Provider Emergency Medicine
DX: K42.9 Umbilical hernia without obstruction or gangrene (principal); I88.0 Nonspecific mesenteric lymphadenitis; R10.2 Pelvic and perineal pain; R11.0 Nausea; Z79.899 Other long term (current) drug therapy
CPT/HCPCS: 36415; 74177; 80053; 81001; 83690; 85025; 96361; 96374; 96375; 99285; J1171; J2405; J7120; Q9967

== ENCOUNTER → 2024-11-25 21:26 | Outpatient (BNV) | payer MEDICAID, SELFPAY | PROVIDERS: Emergency Provider Emergency Medicine; Visit Provider Radiology Diagnostic Radiology | DX: I88.0 Nonspecific mesenteric lymphadenitis (principal) | CPT/HCPCS: 74177 ==

== ENCOUNTER 2024-11-30 19:33 | Emergency (ER) | payer MEDICAID, SELFPAY ==
[2024-11-30 19:47] VITALS: BP 103/59; BP 140/70; PULSE 73; PULSE 76; RESP 16; TEMP 36.8; O2SAT 98; O2SAT 99; BMI 43.4
[2024-11-30 19:52] VITALS: BP 103/59; PULSE 73; RESP 16; TEMP 36.8; O2SAT 99
[2024-11-30 20:11] LABS: MANUAL DIFF FLAG NO
[2024-11-30 20:12] LABS: Hematocrit 34.3 % (37.0-47.0); Hemoglobin 12.1 g/dl (12.0-16.0); Imm Gran Abs Auto 0.01 X10*3/uL (0.00-0.03); Imm Gran Pct Auto 0.2 % (0.0-0.4); Lymphocytes Absolute Auto 2.1 X10*3/uL (1.2-4.9); Mean Corpuscular HGB Conc 35.3 g/dl (31.0-35.0); Mean Corpuscular Hemoglobin 30.1 pg (27.0-33.0); Mean Corpuscular Volume 85.3 fL (80.0-98.0); NRBC Abs Auto 0.000 X10*3/uL (0.0-0.012); NRBC Pct Auto 0.0 /100WBC (0.0-0.2); Platelet Count 159 X10*3/uL (160-400); Red Blood Count 4.02 X10*6/uL (4.20-5.50); White Blood Count 6.4 X10*3/uL (4.8-10.8)
[2024-11-30 20:25] LABS: Alanine Aminotransferase 18 U/L (0-31); Albumin Level 4.1 g/dL (3.5-5.0); Alkaline Phosphatase 71 U/L (39-117); Anion Gap 14 (12-20); Aspartate Amino Transferase 19 U/L (5-31); Blood Urea Nitrogen 10 mg/dL (9-16); Calcium 8.9 mg/dL (8.4-10.2); Carbon Dioxide 24 mmol/L (22-29); Chloride 109 mmol/L (96-108); Creatinine Clr Calc Pharmacy 102.2; Estimated Glomerular Filt Rate > 60; Lipase 40 U/L (8-78); Potassium 3.5 mmol/L (3.3-5.1); Sodium 143 mmol/L (135-145); Total Protein 6.9 g/dL (6.5-8.0)
--- NOTE | 2024-11-30 20:31 | PC.NURSE ---
pt biba from [facility], a&ox4, respirations even and unlabored. pt reports she had developed sudden onset of abdominal pain that feels like someone is squeezing her abdomen. pt states she had been seen and discharged recently and has not followed up with surgeon. robertos
--- NOTE | 2024-11-30 21:09 | ED.ABDPAIN ---
HPI - Abdominal Pain General Chief Complaint: Abdominal Pain Stated Complaint: abd pain Time Seen by Provider: 11/30/24 21:02 Source: patient, EMS, RN notes reviewed and old records reviewed Mode of arrival: EMS Limitations: no limitations History of Present Illness ED Provider: Dr. Meghann Youssef HPI narrative: 48-year-old female with history of housing insecurity, seizure disorder, anxiety and depression presenting via EMS from outside of [employer] [place] with reported abdominal pain and headache. Pain began about an hour prior to arrival. She was recently seen at this hospital for similar pain, diagnosed with a fat containing umbilical hernia and mesenteric adenitis. Describes pain in the entire abdomen mostly around the periumbilical area that is crampy in nature. No back pain or chest pain. No associated nausea or vomiting. Last bowel movement was yesterday and was normal, no hematochezia or melena. No reported fever. Has yet to follow up with the surgeon she was referred to for the umbilical hernia. Reports she is unable to filling of her prescriptions because ?I am homeless and I do not have any money?. She was however able to eat at [employer] prior to calling 911. Related Data Previous Rx's ?Medication ?Instructions ?Recorded ibuprofen 600 mg tablet 600 mg PO Q6H PRN fever or pain 08/30/23 #30 tabs prednisone 20 mg tablet 40 mg (2 x 20 mg) PO DAILY #10 tabs 08/30/23 levetiracetam 500 mg tablet 500 mg PO BID #60 tabs 09/08/23 (Keppra) levetiracetam 500 mg tablet 500 mg PO BID #60 tabs 10/04/23 nystatin 100,000 unit/gram topical 1 appl topical BID #15 grams 10/04/23 powder (Klayesta) amoxicillin 875 mg-potassium 1 tab PO BID 7 days #14 tabs 10/14/23 clavulanate 125 mg tablet ondansetron 4 mg disintegrating 4 mg PO Q6-8H PRN nausea and 10/22/23 tablet vomiting #7 tabs tramadol 50 mg tablet 50 mg PO Q6H PRN pain #20 tabs 10/22/23 cephalexin 500 mg capsule 500 mg PO Q8H 7 days #21 caps 11/02/23 vancomycin 125 mg capsule 125 mg PO QID 10 days #40 caps 11/02/23 levetiracetam 500 mg tablet 500 mg PO BID #180 tabs 11/09/23 (Keppra) ibuprofen 600 mg tablet 600 mg PO TID PRN fever or pain 11/13/23 #14 tabs lorazepam 1 mg tablet (Ativan) 1 mg PO BEDTIME PRN anxiety #10 11/16/23 tabs emtricitabine 200 mg-tenofovir 1 tab PO DAILY #28 tabs 11/19/23 disoproxil fumarate 300 mg tablet (Truvada) raltegravir 400 mg tablet 400 mg PO BID 28 days #56 tabs 11/19/23 ondansetron 4 mg disintegrating 4 mg PO Q8H 4 days #12 tabs 11/20/23 tablet diphenhydramine HCl 25 mg capsule 25 mg PO TID PRN itching 5 days 02/10/24 (Benadryl) #15 caps hydrocortisone 0.5 % topical cream 1 appl topical BID PRN rash 2 02/10/24 weeks #28.4 grams naproxen 500 mg tablet 500 mg PO BID PRN pain 7 days #14 02/10/24 tabs prednisone 20 mg tablet 40 mg (2 x 20 mg) PO DAILY 5 days 02/10/24 #10 tabs levetiracetam 500 mg tablet 500 mg PO BID #60 tabs 11/18/24 (Roweepra) dicyclomine 20 mg tablet 20 mg PO TID #10 tabs 11/30/24 Allergies Allergy/AdvReac Type Severity Reaction Status Date / Time seafood Allergy Severe Anaphylaxis Verified 11/30/24 19:51 Review of Systems Review of Systems As per HPI Yes all other systems are reviewed and are negative [facility] Past Medical History Attestation statement: The following information was validated with the patient. [facility] Narrative: housing insecurity, seizure disorder, anxiety and depression Source: old records reviewed and nursing notes reviewed Medical History Miscarriage Seizure Social History Social History Unable to assess alcohol history related to: Unknown Alcohol intake: never Smoked in Last 30 Days: Yes Use of substances other than those prescribed or required for medical reasons: No Advance Directives: No Advance Directives Information Provided: Yes Physical Exam ED Vital Signs: Vital Signs - 24 hr 11/30/24 19:47 11/30/24 19:52 Temperature 98.3 F 98.3 F Pulse Rate 73 73 Respiratory Rate 16 16 Blood Pressure 103/59 L 103/59 L Pulse Oximetry 99 99 Oxygen Delivery Method Room Air Room Air BMI result Body Mass Index 43.4 GENERAL: Anxious, no acute distress. SKIN: Normal skin color for ethnicity, warm, dry, intact, no rashes noted. HEENT: Normocephalic, atraumatic, no stridor, posterior oropharynx nonerythematous, poor [place] dentition, EOMI. NECK: Soft, supple, full ROM, midline structures nontender, no step-offs, no deformities, no lymphadenopathy. CHEST: Heart regular rhythm, no murmurs, symmetric chest rise and fall, no crepitus. PULMONARY: Clear to auscultation bilaterally, no labored breathing, no wheezes/rhales/ rhonchi. ABDOMINAL: Soft, nondistended, diffusely tender to palpation without rebound or guarding, hyperactive bowel sounds in all quadrants, umbilical hernia is again non-reducible no skin discoloration. : Deferred. MUSCULOSKELETAL: Normal tone, full range of motion, no deformities, no peripheral edema. NEURO: Alert and oriented x3, CN II through XII intact, equal strength and sensation bilateral upper and lower extremities, no focal neurologic deficits. PSYCHIATRIC: Anxious affect, fluid speech, good eye contact and appropriate demeanor. Medical Decision Making Medical Decision Making [facility] Narrative: This patient presents today with a chief complaint of abdominal pain. Differential diagnosis for this patient is broad. It includes umbilical hernia pain previously diagnosed, continued mesenteric adenitis previously diagnosed, appendicitis, cholecystitis, bowel obstruction, peptic ulcer disease, pyelonephritis, vascular pathology, among many others. A broad-based workup based on history and physical examination was obtained. Workup is reassuring. Exam is non peritoneal. I feel this patient does not need any further imaging at this time. Provided with Bentyl for abdominal pain and we will write a prescription for home. Discussed importance of follow-up with surgery regarding her umbilical hernia. Discharged in stable and improved condition. Differential Diagnosis Differential Diagnoses: The differential diagnosis associated with the presentation includes (As above) Admission/Observation Consideration of admission/observation: Escalation of care including admission/observation considered Lab Data [facility] Lab Attestation statement: I reviewed the patient's lab results. 11/30/24 20:07 11/30/24 20:07 Labs: Lab Results 11/30/24 Range/Units 20:07 WBC 6.4 (4.8-10.8) X10*3/uL RBC 4.02 L (4.20-5.50) X10*6/uL Hgb 12.1 (12.0-16.0) g/dl Hct 34.3 L (37.0-47.0) % MCV 85.3 (80.0-98.0) fL MCH 30.1 (27.0-33.0) pg MCHC 35.3 H (31.0-35.0) g/dl RDW 13.0 (11.0-16.0) % Plt Count 159 L (160-400) X10*3/uL MPV 10.6 (9.4-12.3) fL Immature Gran % (Auto) 0.2 (0.0-0.4) % Neut % (Auto) 56.9 (45-73) % Lymph % (Auto) 32.3 (20-40) % [place] % (Auto) 6.9 (2-11) % Eos % (Auto) 3.1 (0-4) % Baso % (Auto) 0.6 (0-2) % Lymph # (Auto) 2.1 (1.2-4.9) X10*3/uL [place] # (Auto) 0.4 (0.1-1.2) X10*3/uL Eos # (Auto) 0.2 (0.0-0.4) X10*3/uL Baso # (Auto) 0.0 (0.0-0.2) X10*3/uL Abs Immat Gran (auto) 0.01 (0.00-0.03) X10*3/uL Absolute Neuts (auto) 3.6 (2.0-8.3) x10*3/uL Absolute Nucleated RBC 0.000 (0.0-0.012) X10*3/uL Nucleated RBC % (auto) 0.0 (0.0-0.2) /100WBC Sodium 143 (135-145) mmol/L Potassium 3.5 (3.3-5.1) mmol/L Chloride 109 H (96-108) mmol/L Carbon Dioxide 24 (22-29) mmol/L Anion Gap 14 (12-20) BUN 10 (9-16) mg/dL Creatinine 0.78 (0.5-1.4) mg/dL Estim Creat Clear Calc 102.2 Estimated GFR > 60 Random Glucose 85 (60-115) mg/dL Calcium 8.9 (8.4-10.2) mg/dL Total Bilirubin 0.4 (0.0-1.0) mg/dL AST 19 (5-31) U/L ALT 18 (0-31) U/L Alkaline Phosphatase 71 (39-117) U/L Total Protein 6.9 (6.5-8.0) g/dL Albumin 4.1 (3.5-5.0) g/dL Lipase 40 (8-78) U/L Prescription Management I considered prescription management with: Pain Medication Chronic Conditions Patient?s care impacted by: Other (Seizure disorder) Social Determinants Patient?s care significantly limited by Social Determinants of Health including: Inadequate housing, Problems related to primary support group and Unemployment Discharge Plan Discharge Clinical Impression: Irreducible umbilical hernia, Abdominal pain, acute Patient Disposition: Home, Self-Care Instructions: Abdominal Pain (ED) Additional Instructions: Call the surgeon again to make an appointment regarding your hernia. Return to the emergency department with any new or worsening symptoms including: Worsening abdominal pain, fevers greater than 100?, vomiting, any new symptom that concerns you. Use Bentyl for pain. Prescriptions: New dicyclomine 20 mg tablet 20 mg PO TID Qty: 10 0RF No Action prednisone 20 mg tablet 40 mg PO DAILY Qty: 10 0RF ibuprofen 600 mg tablet 600 mg PO Q6H PRN (Reason: fever or pain) Qty: 30 0RF cephalexin 500 mg capsule 500 mg PO Q8H 7 Days Qty: 21 0RF ibuprofen 600 mg tablet 600 mg PO TID PRN (Reason: fever or pain) Qty: 14 0RF lorazepam [Ativan] 1 mg tablet 1 mg PO BEDTIME PRN (Reason: anxiety) Qty: 10 0RF naproxen 500 mg tablet 500 mg PO BID PRN (Reason: pain) 7 Days Qty: 14 0RF diphenhydramine HCl [Benadryl] 25 mg capsule 25 mg PO TID PRN (Reason: itching) 5 Days Qty: 15 0RF prednisone 20 mg tablet 40 mg PO DAILY 5 Days Qty: 10 0RF hydrocortisone 0.5 % cream 1 appl topical BID PRN (Reason: rash) 14 Days Qty: 28.4 0RF Rx Instructions: on breast rash levetiracetam [Roweepra] 500 mg tablet 500 mg PO BID Qty: 60 0RF levetiracetam [Keppra] 500 mg tablet 500 mg PO BID Qty: 60 2RF levetiracetam 500 mg tablet 500 mg PO BID Qty: 60 0RF nystatin [Klayesta] 100,000 unit/gram powder 1 appl topical BID Qty: 15 0RF Rx Instructions: Apply to right breast in area of rash amoxicillin-pot clavulanate 875-125 mg tablet 1 tab PO BID 7 Days Qty: 14 0RF tramadol 50 mg tablet 50 mg PO Q6H PRN (Reason: pain) Qty: 20 0RF ondansetron 4 mg tablet,disintegrating 4 mg PO Q6-8H PRN (Reason: nausea and vomiting) Qty: 7 0RF vancomycin 125 mg capsule 125 mg PO QID 10 Days Qty: 40 0RF levetiracetam [Keppra] 500 mg tablet 500 mg PO BID Qty: 180 1RF emtricitabine-tenofovir (TDF) [Truvada] 200-300 mg tablet 1 tab PO DAILY Qty: 28 0RF raltegravir 400 mg tablet 400 mg PO BID 28 Days Qty: 56 0RF ondansetron 4 mg tablet,disintegrating 4 mg PO Q8H 4 Days Qty: 12 0RF Print Language: Danish
[2024-11-30 22:25] VITALS: BP 100/48; PULSE 62; RESP 16; TEMP 36.6; O2SAT 97
== END 2024-11-30 22:39 | disposition home or self-care (01) ==
PROVIDERS: Emergency Provider Emergency Medicine
DX: K42.9 Umbilical hernia without obstruction or gangrene (principal); R10.2 Pelvic and perineal pain; R51.9 Headache, unspecified
CPT/HCPCS: 36415; 80053; 83690; 85025; 99283; 99284

== ENCOUNTER 2024-12-03 19:54 | Emergency (ER) | payer MEDICAID, SELFPAY ==
--- NOTE | ~2024-12-03 | XR_ITS ---
CLINICAL HISTORY: CP, SOB Chest X-ray, 2 Views COMPARISON: CR/NC/SR - XR CHEST 1V - 12/01/23 20:15 EDT FINDINGS: No consolidation. No pleural effusion. No pneumothorax. No cardiomegaly. No acute fracture. IMPRESSION: No acute findings. This document has been electronically signed by: Justin Dominguez MD on 12/03/2024 21:52:44
[2024-12-03 20:11] VITALS: BP 111/75; PULSE 92; O2SAT 100
[2024-12-03 20:13] VITALS: BP 126/55; PULSE 75; RESP 20; TEMP 37.1; O2SAT 99; BMI 36.6
--- NOTE | 2024-12-03 20:17 | ED.GENADULT ---
HPI - General Adult General Chief complaint: Dyspnea Stated complaint: anxious sob, dizzy weakness , dog Time Seen by Provider: 12/03/24 22:53 Source: patient Mode of arrival: ambulatory Limitations: no limitations History of Present Illness ED Provider: Dr. Concha Jc HPI narrative: Patient comes to the emergency room complaining of anxiety, depression, shortness of breath. Patient denies SI or HI. Patient states that earlier today, both of her dogs had to be you denies. Patient is communicating through her phone, Typing her answers, states that she can not talk because every time she tries to talk she starts crying. At this time, patient states that she feels that she is breathing better. Patient is still very upset about her dogs deaths. in triage, she reported that she has been taking her medications for seizures. Related Data Previous Rx's ?Medication ?Instructions ?Recorded ibuprofen 600 mg tablet 600 mg PO Q6H PRN fever or pain 08/30/23 #30 tabs prednisone 20 mg tablet 40 mg (2 x 20 mg) PO DAILY #10 tabs 08/30/23 levetiracetam 500 mg tablet 500 mg PO BID #60 tabs 09/08/23 (Keppra) levetiracetam 500 mg tablet 500 mg PO BID #60 tabs 10/04/23 nystatin 100,000 unit/gram topical 1 appl topical BID #15 grams 10/04/23 powder (Klayesta) amoxicillin 875 mg-potassium 1 tab PO BID 7 days #14 tabs 10/14/23 clavulanate 125 mg tablet ondansetron 4 mg disintegrating 4 mg PO Q6-8H PRN nausea and 10/22/23 tablet vomiting #7 tabs tramadol 50 mg tablet 50 mg PO Q6H PRN pain #20 tabs 10/22/23 cephalexin 500 mg capsule 500 mg PO Q8H 7 days #21 caps 11/02/23 vancomycin 125 mg capsule 125 mg PO QID 10 days #40 caps 11/02/23 levetiracetam 500 mg tablet 500 mg PO BID #180 tabs 11/09/23 (Keppra) ibuprofen 600 mg tablet 600 mg PO TID PRN fever or pain 11/13/23 #14 tabs lorazepam 1 mg tablet (Ativan) 1 mg PO BEDTIME PRN anxiety #10 11/16/23 tabs emtricitabine 200 mg-tenofovir 1 tab PO DAILY #28 tabs 11/19/23 disoproxil fumarate 300 mg tablet (Truvada) raltegravir 400 mg tablet 400 mg PO BID 28 days #56 tabs 11/19/23 ondansetron 4 mg disintegrating 4 mg PO Q8H 4 days #12 tabs 11/20/23 tablet diphenhydramine HCl 25 mg capsule 25 mg PO TID PRN itching 5 days 02/10/24 (Benadryl) #15 caps hydrocortisone 0.5 % topical cream 1 appl topical BID PRN rash 2 02/10/24 weeks #28.4 grams naproxen 500 mg tablet 500 mg PO BID PRN pain 7 days #14 02/10/24 tabs prednisone 20 mg tablet 40 mg (2 x 20 mg) PO DAILY 5 days 02/10/24 #10 tabs levetiracetam 500 mg tablet 500 mg PO BID #60 tabs 11/18/24 (Roweepra) dicyclomine 20 mg tablet 20 mg PO TID #10 tabs 11/30/24 Allergies Allergy/AdvReac Type Severity Reaction Status Date / Time seafood Allergy Severe Anaphylaxis Verified 12/03/24 20:19 Review of Systems Review of Systems: Constitutional : No Weight loss, No Fever, No Chills, No Night Sweats, No Fatigue, No Malaise ENT/Mouth : No Hearing loss, No Ear Pain, No Nasal Congestion, No Sinus Pain, No Hoarseness, No sore throat, No Rhinorrhea, No Swallowing Difficulty Eyes: No Eye Pain, No Swelling, No Redness, No Foreign Body, No Discharge, No Vision Changes Cardiovascular : No Chest Pain, no palpitations, no orthopnea Respiratory : No Cough, No Sputum, No Wheezing, No Smoke Exposure, reports Dyspnea due to anxiety Gastrointestinal : No Nausea, No Vomiting, No Diarrhea, No Constipation, No abdominal Pain, No Hematochezia, No Melena Genitourinary : no irregular bleeding, No Dysuria, No Urinary Frequency, No Hematuria, No Urinary Incontinence, No Urgency, No Flank Pain, No Urinary Flow Changes, No Hesitancy Musculoskeletal : No joint pain, No Myalgias, No Joint Swelling Skin : No Skin Lesions, No rash Neuro : No Weakness, No Numbness, No Paresthesias, No Loss of Consciousness, No Dizziness, No Headache Psych : complaining of anxiety, morning the of her dogs, denies SI or HI Heme/Lymph: No Bruising, No Bleeding,No Lymphadenopathy Endocrine : No Polyuria, No Polydipsia, No Temperature Intolerance PMFSH Past Medical History Medical History Miscarriage Seizure Social History Social History Unable to assess alcohol history related to: Unknown Alcohol intake: never Advance Directives: No Advance Directives Information Provided: Yes Physical Exam ED Vital Signs: Vital Signs - 24 hr 12/03/24 20:13 Temperature 98.8 F Pulse Rate 75 Respiratory Rate 20 Blood Pressure 126/55 L Pulse Oximetry 99 Oxygen Delivery Method Room Air BMI result Body Mass Index 36.6 Const Other: Appearance: Alert. Very tearful, nevertheless she tries to talk she is times crying Eyes: Pupils equal, round and reactive to light. ENT: Pharynx normal. no oropharyngeal edema, normal tongue, midline uvula Neck: Normal inspection. Neck supple. No lymph nodes noted. No crepitus CVS: Normal heart rate and rhythm. Pulses normal. Normal S1 and S2 Respiratory: No respiratory distress. Breath sounds normal. No Wheezing. No rales Abdomen: Soft and nontender. No rigidity. No distention. Skin: Skin warm and dry. Normal skin color. Normal skin turgor. Extremities: No lower extremity edema. No Lacerations. No Rash Neuro: Oriented X 3. No motor deficit. No sensory deficit. Moving all extremities. No slurred speech. CN 2 through 12 grossly intact Psych: tearful Course Course Course Narrative: This is an RME: Additional HPI, ROS, PE not included below will be deferred to primary provider. RME assessment and note performed by: Tran Luevano PA-C This is a 49-year-old female, with a hx of housing insecurity, seizure disorder, anxiety and depression, who presents to the ER via EMS with concerns of dizziness, chest pain, SOB. Reporting that she cannot talk in triage. Typed on her phone that she is feeling short of breath. Oxygen saturation 97%. Pt gasping when not distracted but when distracted no longer gasps. Reports that she received a phone call from the police stating that they killed her dogs. Reports that she had two seizures in her tent today - she is on keppra. Plan: Labs, Xray, EKG, further Er eval needed Medical Decision Making Medical Decision Making [facility] Narrative: my interpretation of labs: No significant abnormality in patient's hematology, chemistry, LFTs, troponin, CPK normal chest x-ray my interpretation: EKG: Sinus rhythm, heart rate 71, no ST segment depression or elevation, nonspecific T-wave inversion in lead 3, QTC 425 Patient is grieving the of her 2 dogs. No SI, no HI. For symptomatic treatment, patient was given a dose of p.o. Ativan. I discussed with the patient that her lungs sound hard did not show any concerning acute pathology. Patient is not talking, she is stopping everything. No signs Or physical exam that would indicate airway compromise. This is likely secondary to anxiety. Differential Diagnosis Differential Diagnoses: The differential diagnosis associated with the presentation includes ( Anxiety, depression, grieving, asthma) Admission/Observation Consideration of admission/observation: Escalation of care including admission/observation considered ( patient is not quite talking, typing everything. Observation was considered.) Lab Data [facility] Lab Attestation statement: I reviewed the patient's lab results. 12/03/24 20:46 12/03/24 20:46 Labs: Lab Results 12/03/24 Range/Units 20:46 WBC 6.2 (4.8-10.8) X10*3/uL RBC 4.34 (4.20-5.50) X10*6/uL Hgb 12.9 (12.0-16.0) g/dl Hct 36.5 L (37.0-47.0) % MCV 84.1 (80.0-98.0) fL MCH 29.7 (27.0-33.0) pg MCHC 35.3 H (31.0-35.0) g/dl RDW 12.9 (11.0-16.0) % Plt Count 165 (160-400) X10*3/uL MPV 10.9 (9.4-12.3) fL Immature Gran % (Auto) 0.2 (0.0-0.4) % Neut % (Auto) 57.7 (45-73) % Lymph % (Auto) 32.3 (20-40) % [place] % (Auto) 6.2 (2-11) % Eos % (Auto) 3.1 (0-4) % Baso % (Auto) 0.5 (0-2) % Lymph # (Auto) 2.0 (1.2-4.9) X10*3/uL [place] # (Auto) 0.4 (0.1-1.2) X10*3/uL Eos # (Auto) 0.2 (0.0-0.4) X10*3/uL Baso # (Auto) 0.0 (0.0-0.2) X10*3/uL Abs Immat Gran (auto) 0.01 (0.00-0.03) X10*3/uL Absolute Neuts (auto) 3.6 (2.0-8.3) x10*3/uL Absolute Nucleated RBC 0.000 (0.0-0.012) X10*3/uL Nucleated RBC % (auto) 0.0 (0.0-0.2) /100WBC Sodium 142 (135-145) mmol/L Potassium 3.6 (3.3-5.1) mmol/L Chloride 111 H (96-108) mmol/L Carbon Dioxide 24 (22-29) mmol/L Anion Gap 11 L (12-20) BUN 13 (9-16) mg/dL Creatinine 0.76 (0.5-1.4) mg/dL Estim Creat Clear Calc 102.4 Estimated GFR > 60 Random Glucose 108 (60-115) mg/dL Calcium 9.1 (8.4-10.2) mg/dL Magnesium 2.1 (1.6-2.6) mg/dL Total Bilirubin 0.5 (0.0-1.0) mg/dL Direct Bilirubin 0.2 (0.0-0.5) mg/dL AST 19 (5-31) U/L ALT 17 (0-31) U/L Alkaline Phosphatase 78 (39-117) U/L Total Creatine Kinase 62 (26-140) U/L Troponin I High Sens < 2.7 (<3.5-17.0) ng/L Total Protein 7.4 (6.5-8.0) g/dL Albumin 4.3 (3.5-5.0) g/dL Independent Interpretation I performed an independent interpretation of an: EKG and Plain X-Ray Radiology Impression Discussion of test interpretation with radiology: I have reviewed the radiologist's reading. Radiologist Impression: No consolidation. No pleural effusion. No pneumothorax. No cardiomegaly. No acute fracture. IMPRESSION: No acute findings. Critical Care Time Critical Care Time Critical Care Time: Yes Total Critical Care Time: 35 Attestation: I have personally provided critical care time. Time includes review of lab data, radiology results, discussion with consultants, and monitoring for potential decompensation. Intervention performed as documented. Discharge Plan Discharge Clinical Impression: Grieving, Dyspnea Patient Disposition: Home, Self-Care Instructions: Dyspnea (ED), Grief and Loss (ED) Prescriptions: No Action prednisone 20 mg tablet 40 mg PO DAILY Qty: 10 0RF ibuprofen 600 mg tablet 600 mg PO Q6H PRN (Reason: fever or pain) Qty: 30 0RF cephalexin 500 mg capsule 500 mg PO Q8H 7 Days Qty: 21 0RF ibuprofen 600 mg tablet 600 mg PO TID PRN (Reason: fever or pain) Qty: 14 0RF lorazepam [Ativan] 1 mg tablet 1 mg PO BEDTIME PRN (Reason: anxiety) Qty: 10 0RF naproxen 500 mg tablet 500 mg PO BID PRN (Reason: pain) 7 Days Qty: 14 0RF diphenhydramine HCl [Benadryl] 25 mg capsule 25 mg PO TID PRN (Reason: itching) 5 Days Qty: 15 0RF prednisone 20 mg tablet 40 mg PO DAILY 5 Days Qty: 10 0RF hydrocortisone 0.5 % cream 1 appl topical BID PRN (Reason: rash) 14 Days Qty: 28.4 0RF Rx Instructions: on breast rash levetiracetam [Roweepra] 500 mg tablet 500 mg PO BID Qty: 60 0RF levetiracetam [Keppra] 500 mg tablet 500 mg PO BID Qty: 60 2RF levetiracetam 500 mg tablet 500 mg PO BID Qty: 60 0RF nystatin [Klayesta] 100,000 unit/gram powder 1 appl topical BID Qty: 15 0RF Rx Instructions: Apply to right breast in area of rash amoxicillin-pot clavulanate 875-125 mg tablet 1 tab PO BID 7 Days Qty: 14 0RF tramadol 50 mg tablet 50 mg PO Q6H PRN (Reason: pain) Qty: 20 0RF ondansetron 4 mg tablet,disintegrating 4 mg PO Q6-8H PRN (Reason: nausea and vomiting) Qty: 7 0RF vancomycin 125 mg capsule 125 mg PO QID 10 Days Qty: 40 0RF levetiracetam [Keppra] 500 mg tablet 500 mg PO BID Qty: 180 1RF emtricitabine-tenofovir (TDF) [Truvada] 200-300 mg tablet 1 tab PO DAILY Qty: 28 0RF raltegravir 400 mg tablet 400 mg PO BID 28 Days Qty: 56 0RF ondansetron 4 mg tablet,disintegrating 4 mg PO Q8H 4 Days Qty: 12 0RF dicyclomine 20 mg tablet 20 mg PO TID Qty: 10 0RF Print Language: Kinyarwanda
--- NOTE | 2024-12-03 20:22 | ECG_ITS ---
Test Reason : sob Blood Pressure : */* mmHG Vent. Rate : 71 BPM Atrial Rate : 71 BPM P-R Int : 156 ms QRS Dur : 78 ms QT Int : 392 ms P-R-T Axes : 46 21 10 degrees QTcB Int : 425 ms Normal sinus rhythm Normal ECG When compared with ECG of 18-Nov-2024 18:44, Nonspecific T wave abnormality no longer evident in Anterior leads Referred By: Tran Luevano Electronically Signed By: Fernie Head
[2024-12-03 20:50] LABS: MANUAL DIFF FLAG NO
[2024-12-03 20:53] LABS: Hematocrit 36.5 % (37.0-47.0); Hemoglobin 12.9 g/dl (12.0-16.0); Imm Gran Abs Auto 0.01 X10*3/uL (0.00-0.03); Imm Gran Pct Auto 0.2 % (0.0-0.4); Lymphocytes Absolute Auto 2.0 X10*3/uL (1.2-4.9); Mean Corpuscular HGB Conc 35.3 g/dl (31.0-35.0); Mean Corpuscular Hemoglobin 29.7 pg (27.0-33.0); Mean Corpuscular Volume 84.1 fL (80.0-98.0); NRBC Abs Auto 0.000 X10*3/uL (0.0-0.012); NRBC Pct Auto 0.0 /100WBC (0.0-0.2); Platelet Count 165 X10*3/uL (160-400); Red Blood Count 4.34 X10*6/uL (4.20-5.50); White Blood Count 6.2 X10*3/uL (4.8-10.8)
[2024-12-03 21:05] LABS: Alanine Aminotransferase 17 U/L (0-31); Albumin Level 4.3 g/dL (3.5-5.0); Alkaline Phosphatase 78 U/L (39-117); Anion Gap 11 (12-20); Aspartate Amino Transferase 19 U/L (5-31); Blood Urea Nitrogen 13 mg/dL (9-16); Calcium 9.1 mg/dL (8.4-10.2); Carbon Dioxide 24 mmol/L (22-29); Chloride 111 mmol/L (96-108); Creatinine Clr Calc Pharmacy 102.4; Estimated Glomerular Filt Rate > 60; Magnesium 2.1 mg/dL (1.6-2.6); Potassium 3.6 mmol/L (3.3-5.1); Sodium 142 mmol/L (135-145); Total Protein 7.4 g/dL (6.5-8.0)
[2024-12-03 21:13] LABS: Troponin-I High Sensitivity < 2.7 ng/L (<3.5-17.0)
[2024-12-04 05:52] VITALS: BP 107/68; PULSE 60; RESP 14; TEMP 36.5; O2SAT 96
[2024-12-06 01:03] LABS: Levetiracetam Keppra <2.0 mcg/mL (6.0-46.0)
== END 2024-12-04 06:00 | disposition home or self-care (01) ==
PROVIDERS: Physician Assistant Medical; Emergency Provider Emergency Medicine
DX: F43.29 Adjustment disorder with other symptoms (principal); R06.02 Shortness of breath; R42 Dizziness and giddiness; R53.1 Weakness; R07.89 Other chest pain; Z79.899 Other long term (current) drug therapy
CPT/HCPCS: 36415; 71046; 80048; 80076; 80177; 82550; 83735; 84484; 85025; 93005; 99283

== ENCOUNTER → 2024-12-03 20:22 | Outpatient (BNV) | payer MEDICAID, SELFPAY | PROVIDERS: Visit Provider Radiology Diagnostic Radiology | DX: R07.9 Chest pain, unspecified (principal); R06.02 Shortness of breath | CPT/HCPCS: 71046 ==

== ENCOUNTER → 2024-12-03 20:22 | Outpatient (BNV) | payer MEDICAID, SELFPAY | PROVIDERS: Emergency Provider Emergency Medicine; Visit Provider Internal Medicine Cardiovascular Disease | DX: R06.02 Shortness of breath (principal) | CPT/HCPCS: 93010 ==

== ENCOUNTER 2024-12-12 00:34 | Emergency (ER) | payer MEDICAID, SELFPAY ==
--- OUTSIDE RECORDS SUMMARY | 2010-10-18 20:00 | XMS_ITS | Continuity of Care Document ---
Author Organization [facility] ic Address [address] [place] [address] [place] [address] Phone Care Team Providers Care Assistant Inventory Manager Name Role Phone Aurora Shook MD Unavailable Unavailable Procedures Procedure Date HOSPITAL DISCHARGE DAY VISIT SUBSEQUENT HOSPITAL CARE Advance Directives Directive Yes / No Effective Date File Name No Information Encounters Encounter Description Practice Location Reason(s) For Visit Diagnoses Date Provider Providers Copied on Encounter HOSPITAL DISCHARGE DAY VISIT [facility], [address] [place] [address], [id number], tel:[phone] [facility] Inpatient No Information Boone Simon. [address] [place] [address], [id number], [place]. tel:[phone] [facility] [facility], [address] [place] [address], [id number], tel:[phone] [facility] Inpatient No Information No Information Family History Family Member Type Diagnosis Age At Onset No Information Payers Payer name Insurance type Covered libertarian ID Authoriza tion(s) No Information Social History [...]
--- NOTE | ~2024-12-12 | XR_ITS ---
CLINICAL HISTORY: Injury; Tenderness; Swelling 3 views left foot Comparison: CR/SR - XR FOOT 1-2 VIEWS LEFT - 02/10/24 11:07 EDT Findings: There is no fracture or dislocation. Joint spaces appear normal. There is no radiopaque foreign body. There is a calcaneal enthesophyte. Impression: No acute findings. This document has been electronically signed by: Nate Vickers MD on 12/12/2024 02:50:42
--- NOTE | ~2024-12-12 | XR_ITS ---
CLINICAL HISTORY: Injury; Tenderness; Swelling 3 views left ankle Comparison: CR/SR - XR ANKLE 3 OR MORE VIEWS LEFT - 02/10/24 11:08 EDT Findings: There is no fracture or dislocation. Joint spaces appear normal. There is a calcaneal enthesophyte. Impression: No acute findings. This document has been electronically signed by: Nate Vickers MD on 12/12/2024 02:50:43
[2024-12-12 00:43] VITALS: BP 134/76; PULSE 80; O2SAT 98
[2024-12-12 00:46] VITALS: BMI 42.0
[2024-12-12 01:07] VITALS: BP 110/63; PULSE 70; RESP 20; TEMP 36.4; O2SAT 99
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
[2024-12-12 03:30] VITALS: BP 116/70; PULSE 76; RESP 18; TEMP 36.6; O2SAT 98
== END 2024-12-12 03:31 | disposition home or self-care (01) ==
PROVIDERS: Emergency Provider Emergency Medicine
DX: S93.402A Sprain of unspecified ligament of left ankle, initial encounter (principal); S96.912A Strain of unspecified muscle and tendon at ankle and foot level, left foot, initial encounter; X50.1XXA Overexertion from prolonged static or awkward postures, initial encounter; M25.572 Pain in left ankle and joints of left foot; Y93.02 Activity, running; Y92.9 Unspecified place or not applicable; Y99.8 Other external cause status; Z59.00 Homelessness unspecified
CPT/HCPCS: 73610; 73630; 99283; 99284

== ENCOUNTER → 2024-12-12 02:03 | Outpatient (BNV) | payer MEDICAID, SELFPAY | PROVIDERS: Emergency Provider Emergency Medicine; Visit Provider Radiology Diagnostic Radiology | DX: M25.572 Pain in left ankle and joints of left foot (principal); M79.672 Pain in left foot | CPT/HCPCS: 73610; 73630 ==

== ENCOUNTER 2024-12-25 19:05 | Emergency (ER) | payer MEDICAID, SELFPAY ==
--- NOTE | ~2024-12-25 | XR_ITS ---
CLINICAL HISTORY: fall 4 view left knee Comparison: None provided Findings: No fractures or dislocations. No significant arthritic change or erosions. No joint effusion. No radiopaque foreign body. IMPRESSION: 1. No acute findings. This document has been electronically signed by: Porfirio Patton MD on 12/25/2024 20:15:46
[2024-12-25 19:16] VITALS: BP 132/74; PULSE 73; O2SAT 97
[2024-12-25 19:34] VITALS: BP 115/64; PULSE 70; RESP 18; TEMP 36.8; O2SAT 98; BMI 45.7
--- NOTE | 2024-12-25 20:23 | ED.FALL ---
HPI - Fall General Chief Complaint: Fall Stated Complaint: Tripped and fell landing on L knee Time Seen by Provider: 12/25/24 20:23 Source: patient and EMS Mode of arrival: EMS Limitations: no limitations History of Present Illness ED Provider: CINTHIA AMADOR PA-C HPI Narrative: 49 year old female presents to the ED today via EMS for evaluation of left knee pain which began just [employer] in ED today. Patient reports running outside to take cover from the brain when she slipped and fell onto her left knee. Denies twisting knee. States she was able to stand and ambulate after the fall with some discomfort. She then contacted EMS for transport to the ED. Denies trialing any pain meds prior to arrival. Denies any numbness/tingling/weakness of the left lower extremity. Denies any difficulty ambulating. Related Data Previous Rx's ?Medication ?Instructions ?Recorded ibuprofen 600 mg tablet 600 mg PO Q6H PRN fever or pain 08/30/23 #30 tabs prednisone 20 mg tablet 40 mg (2 x 20 mg) PO DAILY #10 tabs 08/30/23 levetiracetam 500 mg tablet 500 mg PO BID #60 tabs 09/08/23 (Keppra) levetiracetam 500 mg tablet 500 mg PO BID #60 tabs 10/04/23 nystatin 100,000 unit/gram topical 1 appl topical BID #15 grams 10/04/23 powder (Klayesta) amoxicillin 875 mg-potassium 1 tab PO BID 7 days #14 tabs 10/14/23 clavulanate 125 mg tablet ondansetron 4 mg disintegrating 4 mg PO Q6-8H PRN nausea and 10/22/23 tablet vomiting #7 tabs tramadol 50 mg tablet 50 mg PO Q6H PRN pain #20 tabs 10/22/23 cephalexin 500 mg capsule 500 mg PO Q8H 7 days #21 caps 11/02/23 vancomycin 125 mg capsule 125 mg PO QID 10 days #40 caps 11/02/23 levetiracetam 500 mg tablet 500 mg PO BID #180 tabs 11/09/23 (Keppra) ibuprofen 600 mg tablet 600 mg PO TID PRN fever or pain 11/13/23 #14 tabs lorazepam 1 mg tablet (Ativan) 1 mg PO BEDTIME PRN anxiety #10 11/16/23 tabs emtricitabine 200 mg-tenofovir 1 tab PO DAILY #28 tabs 11/19/23 disoproxil fumarate 300 mg tablet (Truvada) raltegravir 400 mg tablet 400 mg PO BID 28 days #56 tabs 11/19/23 ondansetron 4 mg disintegrating 4 mg PO Q8H 4 days #12 tabs 11/20/23 tablet diphenhydramine HCl 25 mg capsule 25 mg PO TID PRN itching 5 days 02/10/24 (Benadryl) #15 caps hydrocortisone 0.5 % topical cream 1 appl topical BID PRN rash 2 02/10/24 weeks #28.4 grams naproxen 500 mg tablet 500 mg PO BID PRN pain 7 days #14 02/10/24 tabs prednisone 20 mg tablet 40 mg (2 x 20 mg) PO DAILY 5 days 02/10/24 #10 tabs levetiracetam 500 mg tablet 500 mg PO BID #60 tabs 11/18/24 (Roweepra) dicyclomine 20 mg tablet 20 mg PO TID #10 tabs 11/30/24 acetaminophen 500 mg capsule 1,000 mg (2 x 500 mg) PO .q8 PRN 12/12/24 fever or pain #30 caps ibuprofen 600 mg tablet 600 mg PO Q8H PRN fever or pain 12/12/24 #30 tabs loperamide 2 mg tablet 2 mg PO Q6H PRN loose stool #14 12/26/24 tabs ondansetron 4 mg disintegrating 4 mg PO Q6H PRN nausea and 12/26/24 tablet vomiting #12 tabs Allergies Allergy/AdvReac Type Severity Reaction Status Date / Time seafood Allergy Severe Anaphylaxis Verified 12/26/24 00:25 Review of Systems Review of Systems: Constitutional: No fever, chills, fatigue, night sweats, weight changes ENT/Mouth: No ear pain, hearing loss, nasal congestion, sinus pain, rhinorrhea, sore throat Eyes: No eye pain, swelling, redness, vision changes, discharge Cardio: No chest pain, palpitations, [place], orthopnea, peripheral edema Pulm: No SOB, cough, sputum, wheezing, dyspnea, hemoptysis GI: No nausea, vomiting, hematemesis, abdominal pain, diarrhea, constipation, hematochezia, melena : No irregular bleeding, dysuria, frequency, urgency, hesitancy, hematuria, flank pain, urinary flow changes, urinary incontinence or retention MSK: No back pain, neck pain, joint pain, myalgias, +L knee pain Skin: No lesions, rashes Neuro: No weakness, numbness, paresthesias, LOC, dizziness, headache Psych: No anxiety/panic, depression, SI/HI, AH/VH All other systems reviewed and are negative. [facility] Past Medical History Attestation statement: The following information was validated with the patient. Source: old records reviewed and nursing notes reviewed Medical History Miscarriage Seizure Social History Social History Unable to assess alcohol history related to: Unknown Alcohol intake: never Smoked in Last 30 Days: No Use of substances other than those prescribed or required for medical reasons: No Advance Directives: No Advance Directives Information Provided: Yes Patient : No Physical Exam Vital Signs: Vital Signs: Last Vital Signs Temp 97.7 F 12/25/24 21:11 Pulse 62 12/25/24 21:11 Resp 14 12/25/24 21:11 BP 104/60 12/25/24 21:11 Pulse Ox 97 12/25/24 21:11 O2 Del Method Room Air 12/25/24 21:11 BMI result Body Mass Index 45.7 vital signs stable General: Well appearing, in no acute distress. Skin: Warm, dry, intact. No rashes or lesions. Head: Normocephalic, atraumatic. EENT: Hearing is intact b/l. Conjunctiva clear. Sclera is anicteric. PERRLA. EOM intact. Moist mucous membranes.? Neck: Supple without LAD. FROM. Trachea midline. Cardiac: Chest wall symmetric. RRR Lungs: Normal respiratory effort without accessory muscle use. CTA bilaterally Back: No midline spinous or paraspinal tenderness. No step off deformity. Ext: +left knee without overlying abrasions, skin changes, swelling, deformity. FROM intact to L knee, some pain on active flexion. no overlying tenderness/crepitus/deformity. NV intact distally. compartments soft. ambulating with slight limping gait. Neuro: AOx3. Normal speech.Strength 5/5 intact throughout. Sensation intact to light touch. NV intact distally. Course Course Course Narrative: xr left knee without fracture. exam benign, FROM intact. ambulating with slight limping gait. yusra wrap applied. medicated w/ toradol. educated on RICE therapy. Patient has remained stable throughout ED visit today. Discussed worrisome signs and symptoms and when to return to the ED. All questions answered at this time. Patient is agreeable with disposition and stable for discharge. Medications Administered Discontinued Medications Generic Name Dose Route Start Last Admin Trade Name Ayaka PRN Reason Stop Dose Admin Ketorolac Tromethamine 30 mg 12/25/24 20:26 12/25/24 20:54 Ketorolac Tromethamine 30 Mg/Ml Vial IM 12/25/24 20:27 30 mg ONCE ONE Administration Medical Decision Making Medical Decision Making [facility] Narrative: 49 year old female presents to the ED today via EMS for evaluation of left knee pain which began just [employer] in ED today. vital signs stable. She is generally well appearing and in NAD. on exam, left knee without overlying abrasions, skin changes, swelling, deformity. FROM intact to L knee, some pain on active flexion. no overlying tenderness/crepitus/deformity. NV intact distally. compartments soft. ambulating with slight limping gait. Differential diagnosis includes contusion, MSK sprain/strain, fracture, dislocation, arthritis. Unlikely neurovascular compromise, threat to limb, compartment syndrome. Presentation not consistent with DVT, gout/pseudogout. Plan for xrays, pain control and re-evaluation. Differential Diagnosis Differential Diagnoses: The differential diagnosis associated with the presentation includes as above. Admission/Observation not indicated. Independent Interpretation I performed an independent interpretation of an: Plain X-Ray Interpretation: xr left knee without fracture Radiology Impression Discussion of test interpretation with radiology: I have reviewed the radiologist's reading. Radiologist Impression: Date of Service: 12/25/24 Procedure(s): XR knee LT 4V Accession Number(s): [id number] cc: Generic ED Physician; Physician,Unknown ~ CLINICAL HISTORY: fall 4 view left knee Comparison: None provided Findings: No fractures or dislocations. No significant arthritic change or erosions. No joint effusion. No radiopaque foreign body. IMPRESSION: 1. No acute findings. This document has been electronically signed by: Porfirio Patton MD on 12/25/2024 20:15:46 Independent Historian Clinical information obtained from an independent historian. History obtained from or confirmed by: EMS External Record Review External record reviewed: Inpatient record Prescription Management I considered prescription management with: Pain Medication Social Determinants Patient?s care significantly limited by Social Determinants of Health including: Other Social Determinant of Health Critical Care Time Critical Care Time Critical Care Time: No Discharge Plan Discharge Clinical Impression: Contusion of left knee Patient Disposition: Home, Self-Care Instructions: Contusion in Adults (ED) Additional Instructions: You were evaluated in the ED today for knee pain following a slip and fall. The xray of your left knee does not show fracture. You were provided with an YUSRA wrap to help with compression. Utilize RICE therapy - rest, ice, compress, and elevate. You may take tylenol/motrin for pain/ discomfort. Return with any new or worsening symptoms. In the case of an emergency call 911. Prescriptions: No Action prednisone 20 mg tablet 40 mg PO DAILY Qty: 10 0RF ibuprofen 600 mg tablet 600 mg PO Q6H PRN (Reason: fever or pain) Qty: 30 0RF cephalexin 500 mg capsule 500 mg PO Q8H 7 Days Qty: 21 0RF ibuprofen 600 mg tablet 600 mg PO TID PRN (Reason: fever or pain) Qty: 14 0RF lorazepam [Ativan] 1 mg tablet 1 mg PO BEDTIME PRN (Reason: anxiety) Qty: 10 0RF naproxen 500 mg tablet 500 mg PO BID PRN (Reason: pain) 7 Days Qty: 14 0RF diphenhydramine HCl [Benadryl] 25 mg capsule 25 mg PO TID PRN (Reason: itching) 5 Days Qty: 15 0RF prednisone 20 mg tablet 40 mg PO DAILY 5 Days Qty: 10 0RF hydrocortisone 0.5 % cream 1 appl topical BID PRN (Reason: rash) 14 Days Qty: 28.4 0RF Rx Instructions: on breast rash levetiracetam [Roweepra] 500 mg tablet 500 mg PO BID Qty: 60 0RF levetiracetam [Keppra] 500 mg tablet 500 mg PO BID Qty: 60 2RF levetiracetam 500 mg tablet 500 mg PO BID Qty: 60 0RF nystatin [Klayesta] 100,000 unit/gram powder 1 appl topical BID Qty: 15 0RF Rx Instructions: Apply to right breast in area of rash amoxicillin-pot clavulanate 875-125 mg tablet 1 tab PO BID 7 Days Qty: 14 0RF tramadol 50 mg tablet 50 mg PO Q6H PRN (Reason: pain) Qty: 20 0RF ondansetron 4 mg tablet,disintegrating 4 mg PO Q6-8H PRN (Reason: nausea and vomiting) Qty: 7 0RF vancomycin 125 mg capsule 125 mg PO QID 10 Days Qty: 40 0RF levetiracetam [Keppra] 500 mg tablet 500 mg PO BID Qty: 180 1RF emtricitabine-tenofovir (TDF) [Truvada] 200-300 mg tablet 1 tab PO DAILY Qty: 28 0RF raltegravir 400 mg tablet 400 mg PO BID 28 Days Qty: 56 0RF ondansetron 4 mg tablet,disintegrating 4 mg PO Q8H 4 Days Qty: 12 0RF dicyclomine 20 mg tablet 20 mg PO TID Qty: 10 0RF ibuprofen 600 mg tablet 600 mg PO Q8H PRN (Reason: fever or pain) Qty: 30 0RF acetaminophen 500 mg capsule 1,000 mg PO .q8 PRN (Reason: fever or pain) Qty: 30 0RF ondansetron 4 mg tablet,disintegrating 4 mg PO Q6H PRN (Reason: nausea and vomiting) Qty: 12 0RF loperamide 2 mg tablet 2 mg PO Q6H PRN (Reason: loose stool) Qty: 14 0RF Referrals: Physician,Unknown J [Primary Care Provider, Medical] Interventions: ED Discharge Assessment Last Done: 12/25/24 21:11 Discharge Date/Time: 12/25/24 21:19 Print Language: Czech
[2024-12-25 20:59] VITALS: BP 104/60; PULSE 62; RESP 14; TEMP 36.5; O2SAT 97
--- NOTE | 2024-12-25 21:06 | PC.NURSE ---
Pt a&ox4, no signs of distress. Pt reports 10/10 left knee pain Pt medicated per mar Vitals stable Kev wrap applied to pts left knee, tolerated well Plan of care ongoing.
[2024-12-25 21:11] VITALS: BP 104/60; PULSE 62; RESP 14; TEMP 36.5; O2SAT 97
== END 2024-12-25 21:19 | disposition home or self-care (01) ==
PROVIDERS: Emergency Provider Emergency Medicine
DX: S80.02XA Contusion of left knee, initial encounter (principal); M79.605 Pain in left leg; W01.0XXA Fall on same level from slipping, tripping and stumbling without subsequent striking against object, initial encounter; Y93.9 Activity, unspecified; Y92.9 Unspecified place or not applicable; Y99.8 Other external cause status
CPT/HCPCS: 73564; 96372; 99284; J1885

== ENCOUNTER → 2024-12-25 19:48 | Outpatient (BNV) | payer MEDICAID, SELFPAY | PROVIDERS: Emergency Provider Emergency Medicine; Visit Provider Nuclear Medicine | DX: M25.562 Pain in left knee (principal) | CPT/HCPCS: 73564 ==

== ENCOUNTER 2024-12-26 00:07 | Emergency (ER) | payer MEDICAID, SELFPAY ==
[2024-12-26 00:23] VITALS: BP 132/77; PULSE 56; RESP 18; TEMP 36.6; O2SAT 95; BMI 41.9
[2024-12-26 01:35] LABS: Imm Gran Abs Auto 0.01 X10*3/uL (0.00-0.03); Imm Gran Pct Auto 0.2 % (0.0-0.4); MANUAL DIFF FLAG SCAN; NRBC Abs Auto 0.000 X10*3/uL (0.0-0.012); NRBC Pct Auto 0.0 /100WBC (0.0-0.2); PLT CLUMP 1; SCAN SMEAR FLAG 1
[2024-12-26 01:37] LABS: Hematocrit 35.1 % (37.0-47.0); Hemoglobin 11.8 g/dl (12.0-16.0); Lymphocytes Absolute Auto 2.0 X10*3/uL (1.2-4.9); Mean Corpuscular HGB Conc 33.6 g/dl (31.0-35.0); Mean Corpuscular Hemoglobin 29.5 pg (27.0-33.0); Mean Corpuscular Volume 87.8 fL (80.0-98.0); Red Blood Count 4.00 X10*6/uL (4.20-5.50)
[2024-12-26 01:48] LABS: Appearance Urine Clear; Glucose Urine UA Negative (Negative); PH 5.5 (5.0-9.0); Specific Gravity - Urine >= 1.030 (1.005-1.025)
[2024-12-26 01:54] LABS: Alanine Aminotransferase 18 U/L (0-31); Albumin Level 4.1 g/dL (3.5-5.0); Alkaline Phosphatase 79 U/L (39-117); Anion Gap 13 (12-20); Aspartate Amino Transferase 19 U/L (5-31); Blood Urea Nitrogen 21 mg/dL (9-16); Calcium 9.0 mg/dL (8.4-10.2); Carbon Dioxide 28 mmol/L (22-29); Chloride 108 mmol/L (96-108); Creatinine Clr Calc Pharmacy 75.6; Estimated Glomerular Filt Rate 52; Potassium 3.9 mmol/L (3.3-5.1); Sodium 145 mmol/L (135-145); Total Protein 6.9 g/dL (6.5-8.0)
[2024-12-26 02:13] LABS: Platelet Count 130 X10*3/uL (160-400); White Blood Count 5.6 X10*3/uL (4.8-10.8)
--- NOTE | 2024-12-26 03:38 | ED.GENADULT ---
HPI - General Adult General Chief complaint: Abdominal Pain Stated complaint: Diarrhea, vomiting, dizzy after eating, abd pain Time Seen by Provider: 12/26/24 03:30 Source: patient Mode of arrival: ambulatory Limitations: no limitations History of Present Illness ED Provider: Dr. Concha Jc HPI narrative: Patient comes to the emergency room complaining of nausea vomiting and diarrhea which started 30 minutes after eating a sandwich. At this time, patient states that she has not longer had any vomiting or diarrhea since she arrived to the emergency room, no abdominal pain. Patient denies fever chills, denies URI or UTI symptoms. Related Data Previous Rx's ?Medication ?Instructions ?Recorded ibuprofen 600 mg tablet 600 mg PO Q6H PRN fever or pain 08/30/23 #30 tabs prednisone 20 mg tablet 40 mg (2 x 20 mg) PO DAILY #10 tabs 08/30/23 levetiracetam 500 mg tablet 500 mg PO BID #60 tabs 09/08/23 (Keppra) levetiracetam 500 mg tablet 500 mg PO BID #60 tabs 10/04/23 nystatin 100,000 unit/gram topical 1 appl topical BID #15 grams 10/04/23 powder (Klayesta) amoxicillin 875 mg-potassium 1 tab PO BID 7 days #14 tabs 10/14/23 clavulanate 125 mg tablet ondansetron 4 mg disintegrating 4 mg PO Q6-8H PRN nausea and 10/22/23 tablet vomiting #7 tabs tramadol 50 mg tablet 50 mg PO Q6H PRN pain #20 tabs 10/22/23 cephalexin 500 mg capsule 500 mg PO Q8H 7 days #21 caps 11/02/23 vancomycin 125 mg capsule 125 mg PO QID 10 days #40 caps 11/02/23 levetiracetam 500 mg tablet 500 mg PO BID #180 tabs 11/09/23 (Keppra) ibuprofen 600 mg tablet 600 mg PO TID PRN fever or pain 11/13/23 #14 tabs lorazepam 1 mg tablet (Ativan) 1 mg PO BEDTIME PRN anxiety #10 11/16/23 tabs emtricitabine 200 mg-tenofovir 1 tab PO DAILY #28 tabs 11/19/23 disoproxil fumarate 300 mg tablet (Truvada) raltegravir 400 mg tablet 400 mg PO BID 28 days #56 tabs 11/19/23 ondansetron 4 mg disintegrating 4 mg PO Q8H 4 days #12 tabs 11/20/23 tablet diphenhydramine HCl 25 mg capsule 25 mg PO TID PRN itching 5 days 02/10/24 (Benadryl) #15 caps hydrocortisone 0.5 % topical cream 1 appl topical BID PRN rash 2 02/10/24 weeks #28.4 grams naproxen 500 mg tablet 500 mg PO BID PRN pain 7 days #14 02/10/24 tabs prednisone 20 mg tablet 40 mg (2 x 20 mg) PO DAILY 5 days 02/10/24 #10 tabs levetiracetam 500 mg tablet 500 mg PO BID #60 tabs 11/18/24 (Roweepra) dicyclomine 20 mg tablet 20 mg PO TID #10 tabs 11/30/24 acetaminophen 500 mg capsule 1,000 mg (2 x 500 mg) PO .q8 PRN 12/12/24 fever or pain #30 caps ibuprofen 600 mg tablet 600 mg PO Q8H PRN fever or pain 12/12/24 #30 tabs loperamide 2 mg tablet 2 mg PO Q6H PRN loose stool #14 12/26/24 tabs ondansetron 4 mg disintegrating 4 mg PO Q6H PRN nausea and 12/26/24 tablet vomiting #12 tabs Allergies Allergy/AdvReac Type Severity Reaction Status Date / Time seafood Allergy Severe Anaphylaxis Verified 12/26/24 00:25 Review of Systems Review of Systems: Constitutional : No Weight loss, No Fever, No Chills, No Night Sweats, No Fatigue, No Malaise ENT/Mouth : No Hearing loss, No Ear Pain, No Nasal Congestion, No Sinus Pain, No Hoarseness, No sore throat, No Rhinorrhea, No Swallowing Difficulty Eyes: No Eye Pain, No Swelling, No Redness, No Foreign Body, No Discharge, No Vision Changes Cardiovascular : No Chest Pain, No SOB, No Dyspnea on Exertion, No Orthopnea, No Edema, No Palpitations Respiratory : No Cough, No Sputum, No Wheezing, No Smoke Exposure, No Dyspnea Gastrointestinal : Complaining of nausea vomiting and diarrhea after eating a sandwich, all symptoms stopped within the last couple of hours Genitourinary : no irregular bleeding, No Dysuria, No Urinary Frequency, No Hematuria, No Urinary Incontinence, No Urgency, No Flank Pain, No Urinary Flow Changes, No Hesitancy Musculoskeletal : No joint pain, No Myalgias, No Joint Swelling Skin : No Skin Lesions, No rash Neuro : No Weakness, No Numbness, No Paresthesias, No Loss of Consciousness, No Dizziness, No Headache Psych : No Anxiety/Panic, No Depression, No SI/HI/AH/VH, No Social Issues, Heme/Lymph: No Bruising, No Bleeding,No Lymphadenopathy Endocrine : No Polyuria, No Polydipsia, No Temperature Intolerance [facility] Past Medical History Medical History Miscarriage Seizure Social History Social History Unable to assess alcohol history related to: Unknown Alcohol intake: never Advance Directives: No Advance Directives Information Provided: Yes Physical Exam ED Exam Exam: Appearance: Alert. Oriented X3. No acute distress. Well-appearing Eyes: Pupils equal, round and reactive to light. ENT: Pharynx normal. Neck: Normal inspection. Neck supple. No lymph nodes noted. No crepitus CVS: Normal heart rate and rhythm. Pulses normal. Normal S1 and S2 Respiratory: No respiratory distress. Breath sounds normal. No Wheezing. No rales Abdomen: Soft and nontender. No rigidity. No distention. No rebound or guarding Skin: Skin warm and dry. Normal skin color. Normal skin turgor. Extremities: No lower extremity edema. No Lacerations. No Rash Neuro: Oriented X 3. No motor deficit. No sensory deficit. Moving all extremities. No slurred speech. CN 2 through 12 grossly intact Psych: calm, cooperative, normal affect Vital Signs: Vital Signs - 24 hr 12/26/24 00:23 Temperature 97.9 F Pulse Rate 56 Respiratory Rate 18 Blood Pressure 132/77 Pulse Oximetry 95 Oxygen Delivery Method Room Air BMI result Body Mass Index 41.9 Course Course Course Narrative: Patient reports nausea vomiting and diarrhea after eating a sandwich. Since patient arrived to emergency room, patient no longer symptomatic. Medical Decision Making Medical Decision Making [facility] Narrative: My interpretation of labs: No significant abnormality in patient's hematology and chemistry, normal LFTs, urinalysis negative for UTI Differential Diagnosis Differential Diagnoses: The differential diagnosis associated with the presentation includes (Gastritis, gastroenteritis, UTI, viral illness) Lab Data MDM Lab Attestation statement: I reviewed the patient's lab results. 12/26/24 01:30 12/26/24 01:30 Labs: Lab Results 12/26/24 12/26/24 Range/Units 01:30 01:40 WBC 5.6 (4.8-10.8) X10*3/uL RBC 4.00 L (4.20-5.50) X10*6/uL Hgb 11.8 L (12.0-16.0) g/dl Hct 35.1 L (37.0-47.0) % MCV 87.8 (80.0-98.0) fL MCH 29.5 (27.0-33.0) pg MCHC 33.6 (31.0-35.0) g/dl RDW 13.2 (11.0-16.0) % Plt Count 130 L (160-400) X10*3/uL MPV 10.7 (9.4-12.3) fL Immature Gran % (Auto) 0.2 (0.0-0.4) % Neut % (Auto) 52.0 (45-73) % Lymph % (Auto) 36.5 (20-40) % [place] % (Auto) 7.7 (2-11) % Eos % (Auto) 3.1 (0-4) % Baso % (Auto) 0.5 (0-2) % Lymph # (Auto) 2.0 (1.2-4.9) X10*3/uL [place] # (Auto) 0.4 (0.1-1.2) X10*3/uL Eos # (Auto) 0.2 (0.0-0.4) X10*3/uL Baso # (Auto) 0.0 (0.0-0.2) X10*3/uL Abs Immat Gran (auto) 0.01 (0.00-0.03) X10*3/uL Absolute Neuts (auto) 2.9 (2.0-8.3) x10*3/uL Absolute Nucleated RBC 0.000 (0.0-0.012) X10*3/uL Nucleated RBC % (auto) 0.0 (0.0-0.2) /100WBC Smear Tech's Comments VERIFIED Sodium 145 (135-145) mmol/L Potassium 3.9 (3.3-5.1) mmol/L Chloride 108 (96-108) mmol/L Carbon Dioxide 28 (22-29) mmol/L Anion Gap 13 (12-20) BUN 21 H (9-16) mg/dL Creatinine 1.11 (0.5-1.4) mg/dL Estim Creat Clear Calc 75.6 Estimated GFR 52 Random Glucose 96 (60-115) mg/dL Calcium 9.0 (8.4-10.2) mg/dL Total Bilirubin 0.4 (0.0-1.0) mg/dL AST 19 (5-31) U/L ALT 18 (0-31) U/L Alkaline Phosphatase 79 (39-117) U/L Total Protein 6.9 (6.5-8.0) g/dL Albumin 4.1 (3.5-5.0) g/dL Urine Color Dark Yellow Urine Appearance Clear Urine pH 5.5 (5.0-9.0) Ur Specific [place] >= 1.030 H (1.005-1.025) Urine Protein Trace (Neg-Trace) mg/dL Urine Glucose (UA) Negative (Negative) mg/dL Urine Ketones Negative (Negative) mg/dL Urine Blood Negative (Negative) Urine Nitrite Negative (Negative) Ur Leukocyte Esterase Negative (Negative) Urine RBC 0-2 (0-2) /HPF Urine WBC 0-5 (0-5) /HPF Ur Squamous Epith Cells 6-10 (0-2) /HPF Urine Bacteria 1+ (None Seen) Hyaline Casts 3-5 (0-2) /LPF Discharge Plan Discharge Clinical Impression: Nausea vomiting and diarrhea, Gastroenteritis Patient Disposition: Home, Self-Care Instructions: Acute Nausea and Vomiting (ED), Acute Diarrhea (ED) Additional Instructions: Please follow-up with your primary care physician tomorrow. If you have any worsening or new symptoms, please return to the emergency room or call 911 Prescriptions: New ondansetron 4 mg tablet,disintegrating 4 mg PO Q6H PRN (Reason: nausea and vomiting) Qty: 12 0RF loperamide 2 mg tablet 2 mg PO Q6H PRN (Reason: loose stool) Qty: 14 0RF No Action prednisone 20 mg tablet 40 mg PO DAILY Qty: 10 0RF ibuprofen 600 mg tablet 600 mg PO Q6H PRN (Reason: fever or pain) Qty: 30 0RF cephalexin 500 mg capsule 500 mg PO Q8H 7 Days Qty: 21 0RF ibuprofen 600 mg tablet 600 mg PO TID PRN (Reason: fever or pain) Qty: 14 0RF lorazepam [Ativan] 1 mg tablet 1 mg PO BEDTIME PRN (Reason: anxiety) Qty: 10 0RF naproxen 500 mg tablet 500 mg PO BID PRN (Reason: pain) 7 Days Qty: 14 0RF diphenhydramine HCl [Benadryl] 25 mg capsule 25 mg PO TID PRN (Reason: itching) 5 Days Qty: 15 0RF prednisone 20 mg tablet 40 mg PO DAILY 5 Days Qty: 10 0RF hydrocortisone 0.5 % cream 1 appl topical BID PRN (Reason: rash) 14 Days Qty: 28.4 0RF Rx Instructions: on breast rash levetiracetam [Roweepra] 500 mg tablet 500 mg PO BID Qty: 60 0RF levetiracetam [Keppra] 500 mg tablet 500 mg PO BID Qty: 60 2RF levetiracetam 500 mg tablet 500 mg PO BID Qty: 60 0RF nystatin [Klayesta] 100,000 unit/gram powder 1 appl topical BID Qty: 15 0RF Rx Instructions: Apply to right breast in area of rash amoxicillin-pot clavulanate 875-125 mg tablet 1 tab PO BID 7 Days Qty: 14 0RF tramadol 50 mg tablet 50 mg PO Q6H PRN (Reason: pain) Qty: 20 0RF ondansetron 4 mg tablet,disintegrating 4 mg PO Q6-8H PRN (Reason: nausea and vomiting) Qty: 7 0RF vancomycin 125 mg capsule 125 mg PO QID 10 Days Qty: 40 0RF levetiracetam [Keppra] 500 mg tablet 500 mg PO BID Qty: 180 1RF emtricitabine-tenofovir (TDF) [Truvada] 200-300 mg tablet 1 tab PO DAILY Qty: 28 0RF raltegravir 400 mg tablet 400 mg PO BID 28 Days Qty: 56 0RF ondansetron 4 mg tablet,disintegrating 4 mg PO Q8H 4 Days Qty: 12 0RF dicyclomine 20 mg tablet 20 mg PO TID Qty: 10 0RF ibuprofen 600 mg tablet 600 mg PO Q8H PRN (Reason: fever or pain) Qty: 30 0RF acetaminophen 500 mg capsule 1,000 mg PO .q8 PRN (Reason: fever or pain) Qty: 30 0RF Print Language: Portuguese
[2024-12-26 05:28] VITALS: BP 132/67; PULSE 62; RESP 14; TEMP 36.6; O2SAT 97
[2024-12-26 07:16] VITALS: BP 128/64; PULSE 60; RESP 16; TEMP 36.7; O2SAT 97
== END 2024-12-26 07:50 | disposition home or self-care (01) ==
PROVIDERS: Emergency Provider Emergency Medicine
DX: K52.9 Noninfective gastroenteritis and colitis, unspecified (principal); R10.9 Unspecified abdominal pain; R42 Dizziness and giddiness; R11.2 Nausea with vomiting, unspecified; Z79.899 Other long term (current) drug therapy
CPT/HCPCS: 36415; 80053; 81001; 85025; 99283; 99284

== ENCOUNTER 2024-12-30 15:41 | Outpatient (REF) | payer MEDICAID, SELFPAY ==
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
[2024-12-30 18:08] LABS: MANUAL DIFF FLAG NO
[2024-12-30 18:28] LABS: Hematocrit 38.9 % (37.0-47.0); Hemoglobin 12.7 g/dl (12.0-16.0); Imm Gran Abs Auto 0.01 X10*3/uL (0.00-0.03); Imm Gran Pct Auto 0.2 % (0.0-0.4); Lymphocytes Absolute Auto 2.1 X10*3/uL (1.2-4.9); Mean Corpuscular HGB Conc 32.6 g/dl (31.0-35.0); Mean Corpuscular Hemoglobin 29.1 pg (27.0-33.0); Mean Corpuscular Volume 89.2 fL (80.0-98.0); NRBC Abs Auto 0.000 X10*3/uL (0.0-0.012); NRBC Pct Auto 0.0 /100WBC (0.0-0.2); Platelet Count 157 X10*3/uL (160-400); Red Blood Count 4.36 X10*6/uL (4.20-5.50); White Blood Count 5.8 X10*3/uL (4.8-10.8)
[2024-12-30 18:30] LABS: Hemoglobin A1C 111.2435 umol/L; Total Hemoglobin (HGBA1C) 3410.8238 umol/L
[2024-12-30 18:50] LABS: Alanine Aminotransferase 17 U/L (0-31); Albumin Level 4.3 g/dL (3.5-5.0); Alkaline Phosphatase 75 U/L (39-117); Anion Gap 11 (12-20); Aspartate Amino Transferase 23 U/L (5-31); Blood Urea Nitrogen 14 mg/dL (9-16); Calcium 9.0 mg/dL (8.4-10.2); Carbon Dioxide 25 mmol/L (22-29); Chloride 110 mmol/L (96-108); Estimated Glomerular Filt Rate > 60; Potassium 4.0 mmol/L (3.3-5.1); Sodium 142 mmol/L (135-145); Total Protein 7.3 g/dL (6.5-8.0)
[2024-12-31 08:09] LABS: HIV Num 1 0.06 S/CO (0.00-0.99); ~HepC Num1 0.12 S/CO (0.00-0.79); ~Hepatitis C Antibody Nonreactive (Nonreactive)
== END 2024-12-30 15:42 | disposition home or self-care (01) ==
LOC: HO.HHCL 15:41
PROVIDERS: PCP Nurse Practitioner Family; Visit Provider Family Medicine
DX: Z11.4 Encounter for screening for human immunodeficiency virus [HIV] (principal); Z11.59 Encounter for screening for other viral diseases; E07.9 Disorder of thyroid, unspecified; E66.01 Morbid (severe) obesity due to excess calories
CPT/HCPCS: 36415; 80053; 83036; 84443; 85025; 86803; 87389

== ENCOUNTER 2025-01-04 18:24 | Emergency (ER) | payer MEDICAID, SELFPAY ==
--- OUTSIDE RECORDS SUMMARY | 2010-10-18 20:00 | XMS_ITS | Continuity of Care Document ---
Author Organization [facility] ic Address [address] [place] [address] [place] [address] Phone Care Team Providers Care Railways Assistant Name Role Phone Aurora Shook MD Unavailable Unavailable Procedures Procedure Date HOSPITAL DISCHARGE DAY VISIT SUBSEQUENT HOSPITAL CARE Advance Directives Directive Yes / No Effective Date File Name No Information Encounters Encounter Description Practice Location Reason(s) For Visit Diagnoses Date Provider Providers Copied on Encounter HOSPITAL DISCHARGE DAY VISIT [facility], [address] [place] [address], [id number], tel:[phone] [facility] Inpatient No Information Boone Simon. [address] [place] [address], [id number], [place]. tel:[phone] SUBSEQUENT HOSPITAL CARE [facility], [address] [place] [address], [id number], tel:[phone] [facility] Inpatient No Information No Information Family History Family Member Type Diagnosis Age At Onset No Information Payers Payer name Insurance type Covered alliance party ID Authoriza tion(s) No Information Social [...]
--- NOTE | ~2025-01-04 | CT_ITS ---
CLINICAL HISTORY: eval for incarrcerated hernia CT abdomen and pelvis with contrast Comparison: CT/SR - ABDOMEN ABD_PELVIS_IV_CONTRAST (ADULT) - 11/25/24 22:22 EDT Findings: Minor atelectasis at the lung bases. Heart size at the upper limits. No pericardial effusion. Unremarkable gallbladder and solid organs. No urolithiasis. No bowel obstruction, pneumoperitoneum, or pneumatosis. Supraumbilical hernia contains fat, up to 9.8 cm diameter. Mild fat stranding at the hernia ostium. Uterus and ovaries unremarkable. Normal appendix. No ascites. The bones are intact. Lower lumbar degenerative change. Severe spinal canal stenosis L4-L5. IMPRESSION: Supraumbilical hernia with slight fat induration. This could be incarcerated/ strangulated. Recommend further clinical investigation. This document has been electronically signed by: Geovany Lang MD on 01/05/2025 03:14:53
[2025-01-04 18:31] VITALS: BP 119/71; BP 124/84; PULSE 74; PULSE 84; RESP 18; TEMP 36.3; O2SAT 98; BMI 44.7
[2025-01-04 18:43] VITALS: BP 119/71; PULSE 74; RESP 18; TEMP 36.3; O2SAT 98
--- OUTSIDE RECORDS SUMMARY | 2025-01-04 19:31 | XMS_ITS | Clinical Summary ---
Author Organization [facility] Address [address] [address] Phone Care Team Providers Care Weight Control Lecturer Name Role Phone Veronica Fonseca MD Primary Care Provider [phone] Allergies Active Allergy Reactions Criticality Noted Date Comments Fish Derived 11/14/2023 Medications No known medications Social History Tobacco Use Types Packs/Day Years Used Date Smoking Tobacco: Some Days Cigarettes Smokeless Tobacco: Never Tobacco Cessation:Ready to Q uit: Not Asked; Counseling Given: Not Answered Alcohol Use Standard Drinks/Week Comments Not Currently 0 (1 standard drink = 0.6 oz pur e alcohol) Education Answer Date Recorded Are you interested in more education? Not on andie e 11/14/2023 Are you concerned about learning? Not on file 11/14/2023 No 11/14/2023 No 11/14/2023 Digital Access Answer Date Recorded No 11/14/2023 No 11/14/2023 Reliable internet access at home? Not on file 11/14/2023 Device with a working camera? Not on file Intimate Partner Violence Answer Date R ecorded Are you denied basic needs s uch as food, clothing, or medical care? No 11/16/2023 In the past 12 months have y ou been in a relationship with a person who hurts, threatens, or tries to control you? No 11/16/2023 Are you denied basic needs s uch as food, clothing, or medical care? No 11/16/2023 In the past 12 months have y ou been in a relationship with a person who hurts, threatens, or tries to control you? No 11/16/2023 Comments No Sex and Gender Information Value Date Recorded Sex Assigned at Female 11/14/2023 7:22 PM EDT Legal Sex Female 7:08 PM EDT Gender Identity Female 11/14/2023 7:22 PM EDT Sexual Orientation Straight 11/14/2023 7: 22 PM EDT Last Filed Vital Signs Vital Sign Reading Time Taken Comments Blood Pressure 105/70 11/16/2023 10:10 PM EDT Pulse 52 11/16/2023 10:10 PM EDT Temperature 36.3 C (97.3 F) 11/16/2023 10:10 PM EDT Respiratory Rate 13 11/16/2023 10:10 PM EDT Oxygen Saturation 100% 11/16/2023 10:10 PM EDT Inhaled Oxygen Concentration - - Weight 104.8 kg (231 lb) 11/16/2023 4:04 PM EDT Height 165.1 cm (5' 5 ) 11/16/2023 4:04 PM EDT Body Mass Index 38.44 11/16/2023 4:04 PM EDT Plan of Treatment Health Maintenance Due Date Last Done Comments Adult Td,Tdap Booster 1973 LIPID PANEL 1973 DEPRESSION SCREENING 1985 SMOKING Hx and SMOKELESS TOB ACCO SCREENING 1986 HEPATITIS C SCREENING 11/23/1991 HIV ONE-TIME SCREENING (18-6 5 YEARS) 11/23/1991 PNEUMOCOCCAL VACCINES (50+ y ears) (1 of 2 - PCV) 1992 PAP SMEAR 1994 MAMMOGRAM 2013 COLOGUARD 2018 COLONOSCOPY 2018 COLORECTAL CANCER SCREENING 2018 FIT TEST 2018 FOBT 2018 SIGMOIDOSCOPY 2018 VIRTUAL COLONOSCOPY 2018 ZOSTER VACCINES (1 of 2) 11/23/2023 COVID-19 VACCINE (1 - 2023-2 5 season) 2024 SCREENING FOR DIABETES 11/15/2026 11/16/2023 HEPATITIS A VACCINES Aged Out No long er eligible based on patient's age to complete this topic HIB VACCINES Aged Out No longer eligi ble based on patient's age to complete this topic MENINGOCOCCAL VACCINES (ACWY) Aged Out No longer eligible based on patient's age to complete this topic MENINGOCOCCAL VACCINES (B) Aged Out N o longer eligible based on patient's age to complete this topic Medical Devices Not on file Insurance [facility] Care Teams Weight Control Lecturer Relationship Specialty Start Date End Date Veronica Fonseca MD [address] [place] [phone] [email or web address] PCP - General Family Medicine 11/16/23 Additional Source Comments The information contained in this document represents components of the legal health record. It is not the complete legal health record.[facility]
[2025-01-04 20:21] VITALS: BP 116/57; PULSE 63; RESP 16; TEMP 36.6; O2SAT 94
[2025-01-04 20:30] LABS: Hematocrit 37.3 % (37.0-47.0); Hemoglobin 12.9 g/dl (12.0-16.0); Imm Gran Abs Auto 0.02 X10*3/uL (0.00-0.03); Imm Gran Pct Auto 0.3 % (0.0-0.4); Lymphocytes Absolute Auto 2.2 X10*3/uL (1.2-4.9); MANUAL DIFF FLAG NO; Mean Corpuscular HGB Conc 34.6 g/dl (31.0-35.0); Mean Corpuscular Hemoglobin 30.1 pg (27.0-33.0); Mean Corpuscular Volume 86.9 fL (80.0-98.0); NRBC Abs Auto 0.000 X10*3/uL (0.0-0.012); NRBC Pct Auto 0.0 /100WBC (0.0-0.2); Platelet Count 176 X10*3/uL (160-400); Red Blood Count 4.29 X10*6/uL (4.20-5.50); White Blood Count 7.5 X10*3/uL (4.8-10.8)
[2025-01-04 21:01] LABS: Alanine Aminotransferase 20 U/L (0-31); Albumin Level 4.5 g/dL (3.5-5.0); Alkaline Phosphatase 79 U/L (39-117); Anion Gap 15 (12-20); Aspartate Amino Transferase 39 U/L (5-31); Blood Urea Nitrogen 13 mg/dL (9-16); Calcium 9.6 mg/dL (8.4-10.2); Carbon Dioxide 25 mmol/L (22-29); Chloride 108 mmol/L (96-108); Creatinine Clr Calc Pharmacy 92.7; Estimated Glomerular Filt Rate > 60; Magnesium 2.0 mg/dL (1.6-2.6); Potassium 4.6 mmol/L (3.3-5.1); Sodium 143 mmol/L (135-145); Total Protein 8.0 g/dL (6.5-8.0)
[2025-01-04 21:06] LABS: Resp Syncy Virus RNA Qual PCR NEGATIVE (Negative); SARS COV2 PCR INHOUSE NEGATIVE (Negative)
[2025-01-04 21:10] LABS: Appearance Urine Clear; Glucose Urine UA Negative (Negative); PH 6.5 (5.0-9.0); Specific Gravity - Urine 1.025 (1.005-1.025); UMIC TRIGGER UACC YES
[2025-01-04 21:22] LABS: UACC Culture Trigger YES
--- NOTE | 2025-01-04 23:20 | ED_ITS ---
HPI - Abdominal Pain General Chief Complaint: Abdominal Pain Stated Complaint: abd pain, known hernia Time Seen by Provider: 01/04/25 22:05 Source: patient Mode of arrival: EMS Limitations: no limitations History of Present Illness ED Provider: Dr. Meghann Youssef HPI narrative: 49-year-old female with a history of housing and security, umbilical hernia ongoing for months presenting with worsening abdominal pain at the hernia site, nausea, vomiting and diarrhea. Reports she is unable to really keep any fluids down because of the pain. No bowel movement in the last 24 hours. She does have history of chronic constipation but does not take medications for this. She has been seen in this emergency department multiple times in the last several months for this abdominal hernia. She has not followed up with a general surgeon. No reported fever. No questionable food intake. No recent travel. No known sick contacts. Related Data Previous Rx's ?Medication ?Instructions ?Recorded ibuprofen 600 mg tablet 600 mg PO Q6H PRN fever or p ain 08/30/23 #30 tabs prednisone 20 mg tablet 40 mg (2 x 20 mg) PO DAILY # 10 tabs 08/30/23 levetiracetam 500 mg tablet 500 mg PO BID #60 tabs (Keppra) levetiracetam 500 mg tablet 500 mg PO BID #60 tabs 02/18 nystatin 100,000 unit/gram topical 1 appl topical BID #15 grams 10/04/23 powder (Klayesta) amoxicillin 875 mg-potassium 1 tab PO BID 7 days #14 t abs 10/14/23 clavulanate 125 mg tablet ondansetron 4 mg disintegrating 4 mg PO Q6-8H PRN naus ea and 10/22/23 tablet vomiting #7 tabs tramadol 50 mg tablet 50 mg PO Q6H PRN pain #20 ta bs 10/22/23 cephalexin 500 mg capsule 500 mg PO Q8H 7 days #21 cap s 11/02/23 vancomycin 125 mg capsule 125 mg PO QID 10 days #40 ca ps 11/02/23 levetiracetam 500 mg tablet 500 mg PO BID #180 tabs (Keppra) ibuprofen 600 mg tablet 600 mg PO TID PRN fever or p ain 11/13/23 #14 tabs lorazepam 1 mg tablet (Ativan) 1 mg PO BEDTIME PRN anx iety #10 11/16/23 tabs emtricitabine 200 mg-tenofovir 1 tab PO DAILY #28 tabs 11/19/23 disoproxil fumarate 300 mg tablet (Truvada) raltegravir 400 mg tablet 400 mg PO BID 28 days #56 ta bs 11/19/23 ondansetron 4 mg disintegrating 4 mg PO Q8H 4 days #12 tabs 11/20/23 tablet diphenhydramine HCl 25 mg capsule 25 mg PO TID PRN itc rafiq 5 days 02/10/24 (Benadryl) #15 caps hydrocortisone 0.5 % topical cream 1 appl topical BID PRN rash 2 02/10/24 weeks #28.4 grams naproxen 500 mg tablet 500 mg PO BID PRN pain 7 day s #14 02/10/24 tabs prednisone 20 mg tablet 40 mg (2 x 20 mg) PO DAILY 5 days 02/10/24 #10 tabs levetiracetam 500 mg tablet 500 mg PO BID #60 tabs (Roweepra) dicyclomine 20 mg tablet 20 mg PO TID #10 tabs acetaminophen 500 mg capsule 1,000 mg (2 x 500 mg) PO .q8 PRN 12/12/24 fever or pain #30 caps ibuprofen 600 mg tablet 600 mg PO Q8H PRN fever or p ain 12/12/24 #30 tabs loperamide 2 mg tablet 2 mg PO Q6H PRN loose stool #14 12/26/24 tabs ondansetron 4 mg disintegrating 4 mg PO Q6H PRN nausea and 12/26/24 tablet vomiting #12 tabs Allergies Allergy/AdvReac Type Severity Reaction Status Date / Time seafood Allergy Severe Anaphylaxis Verified 01/04/25 18:33 Review of Systems Review of Systems as per HPI, full review of systems performed and negative but for the above mentioned pertinent positives and negatives. [facility] Past Medical History [facility] Narrative: housing insecurity Source: old records reviewed Medical History Miscarriage Seizure Social History Social History Unable to assess alcohol history related to: Unknown Alcohol intake: never Physical Exam ED Exam Exam: GENERAL: Unkempt, appears uncomfortable. SKIN: Normal skin color for ethnicity, warm, dry, no rashes noted. HEENT:? Normocephalic, atraumatic, no stridor, posterior oropharynx nonerythematous, dentition intact, EOMI. NECK: Soft, supple, full ROM, midline structures nontender, no step-offs, no deformities, no lymphadenopathy. CHEST: Heart regular rate and rhythm, no murmurs, symmetric chest rise and fall. PULMONARY: Clear to auscultation bilaterally, no labored breathing, no wheezes/rhales/rhonchi. ABDOMINAL: Sofly distended, tender at jas umbilical hernia that is hard to touch, nonreducible, stacie overlying skin changes, et bowel sounds in all quadrants. : Deferred. MUSCULOSKELETAL: Normal tone, full range of motion, no deformities, no peripheral edema. NEURO: Alert and oriented x3, CN II through XII intact, equal strength and sensation bilateral upper and lower extremities, no focal neurologic deficits.? PSYCHIATRIC: Flat affect, poor eye contact, withdrawn Vital Signs: Vital Signs - 24 hr 01/04/25 18:31 01/04/25 18:43 01/04/25 20:21 Temperature 97.3 F 97.3 F 97.9 F Pulse Rate 74 74 63 Respiratory Rate 18 18 16 Blood Pressure 119/71 119/71 116/57 L Pulse Oximetry 98 98 94 Oxygen Delivery Method Room Air Room Air Room Air 01/05/25 01:11 01/05/25 06:28 Temperature 97.4 F 97.2 F Pulse Rate 58 60 Respiratory Rate 18 16 Blood Pressure 108/61 114/58 L Pulse Oximetry 95 96 Oxygen Delivery Method Room Air Room Air BMI result Body Mass Index 44.7 Medical Decision Making Medical Decision Making MDM Narrative: This patient presents today with a chief complaint of abdominal pain. Differential diagnosis for this patient is broad.? It includes incarcerated hernia, strangulated hernia, appendicitis, cholecystitis, bowel obstruction, diverticulitis, peptic ulcer disease, pyelonephritis, vascular pathology, among many others.? A broad-based workup based on history and physical examination was obtained. ? Patient was given ketoralac for pain control. ? 5:56 AM 01/05/2025 (Dr. Meghann Youssef, D.O.) case discussed with Dr. Mijares, general surgeon on-call, who will evaluate the patient at 7:00 a.m.. 7:56 AM 01/05/2025 (Dr. Meghann Youssef D.O.) Surgery reports no evidence of need for immediate surghical intervention. He provided patient with follow up information and his card. Using shared decision making, plan for discharge home to follow-up with primary care and/or specialist.? Patient understands and agrees with plan for discharge.? Discharged home in stable condition. Differential Diagnosis Differential Diagnoses: The differential diagnosis associated with the presentation includes (as above) Admission/Observation Consideration of admission/observation: Escalation of care including admission/observation considered Consult Healthcare Provider Management of the patient was discussed with: Wardrobe Manager (general surgery, Dr. Mijares) Lab Data MDM Lab Attestation statement: I reviewed the patient's lab results. 01/04/25 20:26 01/04/25 20:26 Labs: Lab Results 01/04/25 01/04/25 01/04/25 Range/Units 20:25 20:26 21:01 WBC 7.5 (4.8-10.8) X10*3/uL RBC 4.29 (4.20-5.50) X10*6/uL Hgb 12.9 (12.0-16.0) g/dl Hct 37.3 (37.0-47.0) % MCV 86.9 (80.0-98.0) fL MCH 30.1 (27.0-33.0) pg MCHC 34.6 (31.0-35.0) g/dl RDW 13.2 (11.0-16.0) % Plt Count 176 (160-400) X10*3/uL MPV 11.4 (9.4-12.3) fL Immature Gran % (Auto) 0.3 (0.0-0.4) % Neut % (Auto) 62.2 (45-73) % Lymph % (Auto) 29.5 (20-40) % [place] % (Auto) 6.4 (2-11) % Eos % (Auto) 1.2 (0-4) % Baso % (Auto) 0.4 (0-2) % Lymph # (Auto) 2.2 (1.2-4.9) X10*3/uL [place] # (Auto) 0.5 (0.1-1.2) X10*3/uL Eos # (Auto) 0.1 (0.0-0.4) X10*3/uL Baso # (Auto) 0.0 (0.0-0.2) X10*3/uL Abs Immat Gran (auto) 0.02 (0.00-0.03) X10*3/uL Absolute Neuts (auto) 4.7 (2.0-8.3) x10*3/uL Absolute Nucleated RBC 0.000 (0.0-0.012) X10*3/uL Nucleated RBC % (auto) 0.0 (0.0-0.2) /100WBC Sodium 143 (135-145) mmol/L Potassium 4.6 (3.3-5.1) mmol/L Chloride 108 (96-108) mmol/L Carbon Dioxide 25 (22-29) mmol/L Anion Gap 15 (12-20) BUN 13 (9-16) mg/dL Creatinine 0.94 (0.5-1.4) mg/dL Estim Creat Clear Calc 92.7 Estimated GFR > 60 Random Glucose 89 (60-115) mg/dL Lactic Acid (0.5-2.0) mmol/L Calcium 9.6 D (8.4-10.2) mg/dL Magnesium 2.0 (1.6-2.6) mg/dL Total Bilirubin 0.7 (0.0-1.0) mg/dL AST 39 H (5-31) U/L ALT 20 (0-31) U/L Alkaline Phosphatase 79 (39-117) U/L Total Protein 8.0 (6.5-8.0) g/dL Albumin 4.5 (3.5-5.0) g/dL Urine Color Yellow Urine Appearance Clear Urine pH 6.5 (5.0-9.0) Ur Specific [place] 1.025 (1.005-1.025) Urine Protein Trace (Neg-Trace) mg/dL Urine Glucose (UA) Negative (Negative) mg/dL Urine Ketones Trace (Negative) mg/dL Urine Blood Negative (Negative) Urine Nitrite Negative (Negative) Ur Leukocyte Esterase Moderate (2+) H (Negative) Urine RBC 3-5 H (0-2) /HPF Urine WBC 21-50 H (0-5) /HPF Ur Squamous Epith Cells 6-10 (0-2) /HPF Urine Bacteria 3+ (None Seen) Hyaline Casts 11-20 (0-2) /LPF Influenza Type A (PCR) NEGATIVE (Negative) Influenza Type B (PCR) NEGATIVE (Negative) RSV RNA Qual (PCR) NEGATIVE (Negative) SARS-CoV-2 RNA (RT-PCR) NEGATIVE (Negative) 01/04/25 Range/Units 23:44 WBC (4.8-10.8) X10*3/uL RBC (4.20-5.50) X10*6/uL Hgb (12.0-16.0) g/dl Hct (37.0-47.0) % MCV (80.0-98.0) fL MCH (27.0-33.0) pg MCHC (31.0-35.0) g/dl RDW (11.0-16.0) % Plt Count (160-400) X10*3/uL MPV (9.4-12.3) fL Immature Gran % (Auto) (0.0-0.4) % Neut % (Auto) (45-73) % Lymph % (Auto) (20-40) % [place] % (Auto) (2-11) % Eos % (Auto) (0-4) % Baso % (Auto) (0-2) % Lymph # (Auto) (1.2-4.9) X10*3/uL [place] # (Auto) (0.1-1.2) X10*3/uL Eos # (Auto) (0.0-0.4) X10*3/uL Baso # (Auto) (0.0-0.2) X10*3/uL Abs Immat Gran (auto) (0.00-0.03) X10*3/uL Absolute Neuts (auto) (2.0-8.3) x10*3/uL Absolute Nucleated RBC (0.0-0.012) X10*3/uL Nucleated RBC % (auto) (0.0-0.2) /100WBC Sodium (135-145) mmol/L Potassium (3.3-5.1) mmol/L Chloride (96-108) mmol/L Carbon Dioxide (22-29) mmol/L Anion Gap (12-20) BUN (9-16) mg/dL Creatinine (0.5-1.4) mg/dL Estim Creat Clear Calc Estimated GFR Random Glucose (60-115) mg/dL Lactic Acid 0.8 (0.5-2.0) mmol/L Calcium (8.4-10.2) mg/dL Magnesium (1.6-2.6) mg/dL Total Bilirubin (0.0-1.0) mg/dL AST (5-31) U/L ALT (0-31) U/L Alkaline Phosphatase (39-117) U/L Total Protein (6.5-8.0) g/dL Albumin (3.5-5.0) g/dL Urine Color Urine Appearance Urine pH (5.0-9.0) Ur Specific [place] (1.005-1.025) Urine Protein (Neg-Trace) mg/dL Urine Glucose (UA) (Negative) mg/dL Urine Ketones (Negative) mg/dL Urine Blood (Negative) Urine Nitrite (Negative) Ur Leukocyte Esterase (Negative) Urine RBC (0-2) /HPF Urine WBC (0-5) /HPF Ur Squamous Epith Cells (0-2) /HPF Urine Bacteria (None Seen) Hyaline Casts (0-2) /LPF Influenza Type A (PCR) (Negative) Influenza Type B (PCR) (Negative) RSV RNA Qual (PCR) (Negative) SARS-CoV-2 RNA (RT-PCR) (Negative) Radiology Impression Discussion of test interpretation with radiology: I have reviewed the radiologist's reading. Radiologist Impression: CT abdomen and pelvis with contrast Comparison: CT/SR - ABDOMEN ABD_PELVIS_IV_CONTRAST (ADULT) - 11/25/24 22:22 EDT Findings: Minor atelectasis at the lung bases. Heart size at the upper limits. No pericardial effusion. Unremarkable gallbladder and solid organs. No urolithiasis. No bowel obstruction, pneumoperitoneum, or pneumatosis. Supraumbilical hernia contains fat, up to 9.8 cm diameter. Mild fat stranding at the hernia ostium. Uterus and ovaries unremarkable. Normal appendix. No ascites. The bones are intact. Lower lumbar degenerative change. Severe spinal canal stenosis L4-L5. IMPRESSION: Supraumbilical hernia with slight fat induration. This could be incarcerated/ strangulated. Recommend further clinical investigation. This document has been electronically signed by: Geovany Lang MD on 01/05/2025 03:14:53 External Record Review External record reviewed: Prior outpatient labs Chronic Conditions Patient?s care impacted by: Other (housing insecurity, bipolar disorder) Social Determinants Patient?s care significantly limited by Social Determinants of Health including: Inadequate housing, Low income and Alcoholism and drug addiction in family Medications Administered Discontinued Medications Generic Name Dose Route Start Last Admin Trade Name Freq PRN Reason Stop Dose Admin Diatrizoate Meglum/Diatrizoate Sod 30 ml 01/05/25 02:15 01/05/25 02:16 Diatrizoate Meglumine, Sodium 30 Ml Solution PO 01/05/25 02:16 30 ml ONCE ONE Administration Lactated Ringer's 1,000 mls @ 999 mls/hr 01/04/25 23:21 01/05/25 01:36 Lr IV 01/05/25 00:21 Infused .Q1H1M ONE Infusion Iohexol 100 ml 01/05/25 02:15 01/05/25 02:15 Iohexol 350 Mg/Ml 100 Ml Infus..Btl IV 01/05/25 02:16 100 ml ONCE ONE Administration Ketorolac Tromethamine 15 mg 01/04/25 23:21 01/04/25 23:48 Ketorolac Tromethamine 15 Mg/Ml Vial IVPUSH 01/04/25 23:22 15 mg ONCE ONE Administration Ondansetron HCl 4 mg 01/04/25 23:21 01/04/25 23:48 Ondansetron Hcl 4 Mg/2 Ml Vial IVPUSH 01/04/25 23:22 4 mg ONCE ONE Administration Discharge Plan Discharge Clinical Impression: Irreducible umbilical hernia, Acute exacerbation of chronic abdominal pain Patient Disposition: Home, Self-Care Instructions: Umbilical Hernia (ED) Additional Instructions: Follow-up with Dr. Mijares, general surgeon, as soon as possible. Return to the ER with any new or worsening symptoms including: Fevers greater than 100?, inability to tolerate food or drink, any new symptom that concerns you. Call 911 with any medical emergency. Prescriptions: No Action prednisone 20 mg tablet 40 mg PO DAILY Qty: 10 0RF ibuprofen 600 mg tablet 600 mg PO Q6H PRN (Reason: fever or pain) Qty: 30 0RF cephalexin 500 mg capsule 500 mg PO Q8H 7 Days Qty: 21 0RF ibuprofen 600 mg tablet 600 mg PO TID PRN (Reason: fever or pain) Qty: 14 0RF lorazepam [Ativan] 1 mg tablet 1 mg PO BEDTIME PRN (Reason: anxiety) Qty: 10 0RF naproxen 500 mg tablet 500 mg PO BID PRN (Reason: pain) 7 Days Qty: 14 0RF diphenhydramine HCl [Benadryl] 25 mg capsule 25 mg PO TID PRN (Reason: itching) 5 Days Qty: 15 0RF prednisone 20 mg tablet 40 mg PO DAILY 5 Days Qty: 10 0RF hydrocortisone 0.5 % cream 1 appl topical BID PRN (Reason: rash) 14 Days Qty: 28.4 0RF Rx Instructions: on breast rash levetiracetam [Roweepra] 500 mg tablet 500 mg PO BID Qty: 60 0RF levetiracetam [Keppra] 500 mg tablet 500 mg PO BID Qty: 60 2RF levetiracetam 500 mg tablet 500 mg PO BID Qty: 60 0RF nystatin [Klayesta] 100,000 unit/gram powder 1 appl topical BID Qty: 15 0RF Rx Instructions: Apply to right breast in area of rash amoxicillin-pot clavulanate 875-125 mg tablet 1 tab PO BID 7 Days Qty: 14 0RF tramadol 50 mg tablet 50 mg PO Q6H PRN (Reason: pain) Qty: 20 0RF ondansetron 4 mg tablet,disintegrating 4 mg PO Q6-8H PRN (Reason: nausea and vomiting) Qty: 7 0RF vancomycin 125 mg capsule 125 mg PO QID 10 Days Qty: 40 0RF levetiracetam [Keppra] 500 mg tablet 500 mg PO BID Qty: 180 1RF emtricitabine-tenofovir (TDF) [Truvada] 200-300 mg tablet 1 tab PO DAILY Qty: 28 0RF raltegravir 400 mg tablet 400 mg PO BID 28 Days Qty: 56 0RF ondansetron 4 mg tablet,disintegrating 4 mg PO Q8H 4 Days Qty: 12 0RF dicyclomine 20 mg tablet 20 mg PO TID Qty: 10 0RF ibuprofen 600 mg tablet 600 mg PO Q8H PRN (Reason: fever or pain) Qty: 30 0RF acetaminophen 500 mg capsule 1,000 mg PO .q8 PRN (Reason: fever or pain) Qty: 30 0RF ondansetron 4 mg tablet,disintegrating 4 mg PO Q6H PRN (Reason: nausea and vomiting) Qty: 12 0RF loperamide 2 mg tablet 2 mg PO Q6H PRN (Reason: loose stool) Qty: 14 0RF Referrals: Anitha Arizmendi NP [Primary Care Provider, Family Practice] Jatindre Mijares MD [Physician, General Surgery] Referral Note: PT NEEDS TO ALL FOR AN APPT PER DR MIJARES Interventions: ED Discharge Assessment Last Done: 01/05/25 07:21 Discharge Date/Time: 01/05/25 07:23 Print Language: German
[2025-01-04] MEDS: Lactated Ringers 1,000 ML 999 ML IV (23:48)
--- NOTE | 2025-01-05 00:35 | PC.NURSE ---
pt completed oral contrast
[2025-01-05 01:11] VITALS: BP 108/61; PULSE 58; RESP 18; TEMP 36.3; O2SAT 95
[2025-01-05] MEDS: iohexoL 350 MG/ML 100 ML INFUS..BTL IV (02:15)
[2025-01-05 06:28] VITALS: BP 114/58; PULSE 60; RESP 16; TEMP 36.2; O2SAT 96
--- NOTE | 2025-01-05 07:05 | PC.NURSE ---
MD Roberts at bedside
[2025-01-05 07:21] VITALS: BP 114/58; PULSE 60; RESP 16; TEMP 36.2; O2SAT 96
--- NOTE | 2025-01-05 07:49 | P.CONGS_ITS ---
History of Present Illness Consult details Consult date: 01/05/25 Narrative: [age] year old female referred because of a fat containing umbilical hernia She came in overnight because of what was described as 2 episodes of vomiting yesterday at night. She also describes having some diffuse abdominal pain at that time. She denies any diarrhea She says that her symptoms have resolved. She has had no nausea or vomiting since she has been in the ER. She also says that her abdominal pain has resolved She has a known fat containing hernia. This has seen on her previous CAT scans She was reported to be homeless. She says she was supposed to see a surgeon for her hernia but she just has been unable to follow up on this. Review of Systems 2 Constitutional: Constitutional: Denies chills and Denies fever(s) Cardiovascular: Cardiovascular: Denies dyspnea and Reports dyspnea on exertion Respiratory: Respiratory: Denies dyspnea and Reports dyspnea on exertion Gastrointestinal: Gastrointestinal: Denies hematochezia and Denies diarrhea Genitourinary: Genitourinary: Denies difficulty voiding PMFSH Past Medical History Medical History Miscarriage Seizure Social History Social History Unable to assess alcohol history related to: Unknown Alcohol intake: never Meds Allergies Allergy/AdvReac Type Severity Reaction Status Date / Time seafood Allergy Severe Anaphylaxis Verified 01/04/25 18:33 Physical Exam 2 Vital Signs: Vital Signs: Last Vital Signs Temp 97.2 F 01/05/25 07:21 Pulse 60 01/05/25 07:21 Resp 16 01/05/25 07:21 BP 114/58 L 01/05/25 07:21 Pulse Ox 96 01/05/25 07:21 O2 Del Method Room Air 01/05/25 07:21 BMI result Body Mass Index 44.7 Const: Other: Morbidly obese General: comfortable and no acute distress Resp: Effort & Inspection: normal respiratory effort GI: Other: Umbilical hernia, about 4 cm, not reducible chronically, nontender, no skin changes Palpation (GI): Soft to palpation and not firm Results Labs 01/04/25 20:26 01/04/25 20:26 Labs: Abnormal lab results 01/04/25 01/04/25 Range/Units 20:26 21:01 AST 39 H (5-31) U/L Ur Leukocyte Esterase Moderate (2+) H (Negative) Urine RBC 3-5 H (0-2) /HPF Urine WBC 21-50 H (0-5) /HPF Short CBC 01/04/25 Range/Units 20:26 WBC 7.5 (4.8-10.8) X10*3/uL Hgb 12.9 (12.0-16.0) g/dl Hct 37.3 (37.0-47.0) % Plt Count 176 (160-400) X10*3/uL BMP 01/04/25 20:26 Sodium 143 Potassium 4.6 Chloride 108 Carbon Dioxide 25 BUN 13 Creatinine 0.94 Calcium 9.6 D Liver Function 01/04/25 Range/Units 20:26 Total Bilirubin 0.7 (0.0-1.0) mg/dL AST 39 H (5-31) U/L ALT 20 (0-31) U/L Alkaline Phosphatase 79 (39-117) U/L Albumin 4.5 (3.5-5.0) g/dL Urine 01/04/25 Range/Units 21:01 Urine Color Yellow Urine Appearance Clear Urine pH 6.5 (5.0-9.0) Ur Specific [place] 1.025 (1.005-1.025) Urine Protein Trace (Neg-Trace) mg/dL Urine Glucose (UA) Negative (Negative) mg/dL All other labs normal. Assessment and Plan (1) Irreducible umbilical hernia: Status: Inactive She has a chronically incarcerated umbilical hernia which was fat containing. I have reviewed her CAT scan images. There was no bowel involvement. She currently has no tenderness or any skin changes. She has had no nausea or vomiting since she has been here in the ER. I had a long discussion with her about repair of this hernia. I gave her specific instructions to see me in the office to plan on this and schedule this. She says she will follow up on this this time. She appears comfortable and has a very benign exam. She is hemodynamically stable She is very comfortable with the plan as above. I also discussed the above with the ER staff. Procedures Date of Service Date of Service: 01/08/25
== END 2025-01-05 07:23 | disposition home or self-care (01) ==
PROVIDERS: Physician Assistant Medical; Emergency Provider Emergency Medicine; PCP Nurse Practitioner Family
DX: K42.0 Umbilical hernia with obstruction, without gangrene (principal); R10.2 Pelvic and perineal pain; R11.2 Nausea with vomiting, unspecified; R19.7 Diarrhea, unspecified; Z03.818 Encounter for observation for suspected exposure to other biological agents ruled out
CPT/HCPCS: 36415; 74177; 80053; 81001; 83605; 83735; 85025; 87086; 87637; 96361; 96374; 96375; 99285; J1885; J2405; J7120; Q9967

== ENCOUNTER → 2025-01-04 19:25 | Outpatient (BNV) | payer MEDICAID, SELFPAY | PROVIDERS: Emergency Provider Emergency Medicine; PCP Nurse Practitioner Family; Visit Provider Surgery | DX: K42.0 Umbilical hernia with obstruction, without gangrene (principal) | CPT/HCPCS: 99283 ==

== ENCOUNTER → 2025-01-05 02:00 | Outpatient (BNV) | payer MEDICAID, SELFPAY | PROVIDERS: Emergency Provider Emergency Medicine; PCP Nurse Practitioner Family; Visit Provider Radiology Diagnostic Radiology | DX: K42.9 Umbilical hernia without obstruction or gangrene (principal) | CPT/HCPCS: 74177 ==

== ENCOUNTER 2025-02-12 13:45 | Outpatient (AMB) | payer MEDICAID, SELFPAY ==
--- NOTE | 2025-02-12 14:24 | A.OFFVIS_ITS ---
Vital Signs 02/12/25 14:32 Height 5 ft 5 in Weight 257 lb BMI 42.8 BP 127/71 Blood Pressure Location Lt radial Position Sitting Pulse 67 Intake Visit Reasons: hernia abd wall Intake Note: Patient referred by pcp Dr. Arizmendi for abdominal wall hernia. Seen at [facility] in December for abdominal pain. Thinks hernia has been present for 3yrs. Patient c/o: nausea, vomiting, mid abdominal pain. Hernia has been enlarging. Has to alternate sleeping position due to discomfort. Imaging: abdomen pelvis CT: 01-05-2025 Air Carrier Maintenance Inspector Required: No Accompanied by: Self / Same As Patient Allergies seafood Allergy (Severe, Verified 02/12/25 14:27) Anaphylaxis Medication List - Last Reconciled 02/12/25 by Jatinder Roberts MD acetaminophen 1,000 mg (2 x 500 mg) PO .q8 PRN dicyclomine 20 mg PO TID hydrocortisone 0.5% 1 appl topical BID PRN 2 weeks ibuprofen 600 mg PO Q8H PRN levetiracetam (Keppra) 500 mg PO BID loperamide 2 mg PO Q6H PRN lorazepam (Ativan) 1 mg PO BEDTIME PRN nystatin (Klayesta) 1 appl topical BID ondansetron 4 mg PO Q6H PRN tramadol 50 mg PO Q6H PRN vancomycin 125 mg PO QID 10 days HPI HPI hernia abd wall: Details: 49-year-old female referred for a hernia. She says she has had this large mass on her abdomen above her umbilicus for about 3 years now. This seems to have been increasing in size. This has been causing her significant discomfort She denies having GI complaints and does not have any vomiting or nausea. She is homeless and usually sleeps in a tent near [facility]. She is morbidly obese. She does see a primary care physician at the [facility]. She has a history of seizure disorder and depression. She has not had any seizure episodes for many years. She says that she has had C-sections x4. She says that 1 of her C-sections was an emergency and this had to be done via a laparotomy incision. [facility] Medical History (Updated 02/12/25 @ 14:49 by Jatinder Roberts MD) Morbid obesity Supraumbilical hernia delivery delivered Miscarriage Seizure Social History Unable to assess alcohol history related to: Unknown Alcohol intake: never Tobacco use type: Smokeless Tobacco Review of Systems Const Denies chills and Denies fever(s) Card Denies chest pain, Denies dyspnea and Denies dyspnea on exertion Resp Denies cough, Denies dyspnea and Denies dyspnea on exertion GI Denies hematochezia and Denies change in bowel habits Denies hematuria Musc Denies back pain and Denies limited range of motion Neuro Details: Has history of seizures, none recently Denies focal weakness and Reports convulsions Psych Denies depression and Denies mood swings Physical Exam Vital Signs: Last Vital Signs Pulse 67 02/12/25 14:32 BP 127/71 02/12/25 14:32 BMI result Body Mass Index 42.8 Const Other: Morbidly obese General: comfortable and no acute distress Orientation/consciousness: patient oriented x3 Neck Neck: Yes no lymphadenopathy Resp Auscultation: clear to auscultation bilaterally Cardio Rhythm: regular rhythm GI Other: Large hernia above the umbilicus, nonreducible Palpation (GI): Soft to palpation, nontender and no guarding Neuro General: patient oriented x3 Assessment & Plan Assessment & Plan (1) Supraumbilical hernia: Code(s): K43.9 - Ventral hernia without obstruction or gangrene Category: Medical Plan: She has a large supraumbilical hernia. Review of her CAT scan shows that this has all fat containing. The fascial defect seems to be about 2.7 cm. She describes significant discomfort. I therefore explained to her the technique of repair this supraumbilical hernia with possible mesh placement. I explained the risks including but not limited to bleeding, infections, bowel injury, recurrence, postop pain, as well as the benefits and alternatives. She understands that with her morbid obesity, her perioperative risks are higher. She wants to proceed. She understands what to expect postoperatively. Medications: Discontinued prednisone Discontinued Reason: Patient Completed Course 40 mg (2 x 20 mg) PO DAILY 10 tabs 0RF amoxicillin-pot clavulanate 875-125 mg Discontinued Reason: Patient Completed Course 1 tab PO BID 7 days 14 tabs 0RF ibuprofen Discontinued Reason: Patient Completed Course 600 mg PO TID PRN 14 tabs 0RF fever or pain raltegravir Discontinued Reason: Patient Completed Course 400 mg PO BID 56 tabs 0RF 28 days naproxen Discontinued Reason: Patient Completed Course 500 mg PO BID PRN 14 tabs 0RF pain 7 days prednisone Discontinued Reason: Patient Completed Course 40 mg (2 x 20 mg) PO DAILY 10 tabs 0RF 5 days ibuprofen Discontinued Reason: Patient Completed Course 600 mg PO Q6H PRN 30 tabs 0RF fever or pain levetiracetam (Keppra) Discontinued Reason: Patient Completed Course 500 mg PO BID 60 tabs 2RF levetiracetam Discontinued Reason: Patient Completed Course 500 mg PO BID 60 tabs 0RF ondansetron Discontinued Reason: Patient Completed Course 4 mg PO Q6-8H PRN 7 tabs 0RF nausea and vomiting cephalexin Discontinued Reason: Patient Completed Course 500 mg PO Q8H 7 days 21 caps 0RF emtricitabine-tenofovir (TDF) 200-300 mg (Truvada) Discontinued Reason: Patient Completed Course 1 tab PO DAILY 28 tabs 0RF ondansetron Discontinued Reason: Patient Completed Course 4 mg PO Q8H 4 days 12 tabs 0RF diphenhydramine HCl (Benadryl) Discontinued Reason: Patient Completed Course 25 mg PO TID PRN 15 caps 0RF itching 5 days levetiracetam (Roweepra) Discontinued Reason: Patient Completed Course 500 mg PO BID 60 tabs 0RF Coding Level of Care Code New Pt Level 3 (01611) Diagnoses Supraumbilical hernia K43.9
[2025-02-12 14:32] VITALS: BP 127/71; PULSE 67; BMI 42.8
--- OUTSIDE RECORDS SUMMARY | 2025-02-12 15:49 | XMS_ITS | Encounter Summary ---
Author Organization [employer] Address [address] [facility] [address] [place] [address] Care Team Providers Care Menhaden Vessel Pilot Name Role Phone Savita Juárez Unavailable Unavailable Veronica Fonseca MD Primary Care Provider [phone] Natalie Rosario Unavailable Unavailable Anitha Arizmendi NP Primary Care Provider [phone] Magi Borges Unavailable Encounter Details Date Type Department Care Team (Late st Contact Info) Description 12/04/2024 Telephone [facility] Information Management [address] [place] [address] Veronica Fonseac MD [address] [place] [address] Social History Tobacco Use Types Packs/Day Years Used Date Smoking Tobacco: Some Days Cigarettes Comments No Sex and Gender Information Value Date Recorded Sex Assigned at Female 09/03/2023 12:09 PM EDT Legal Sex Female 10:29 AM EST Gender Identity Female 09/03/2023 12:09 PM EDT Sexual Orientation Straight 09/03/2023 12 :09 PM EDT documented as of this encounter Miscellaneous Notes * Telephone Encounter - Gely Toledo LPN - 12/06/2024 11:16 AM EDT Spoke with pt. She reports she is doing a bit better. She is requesting a call to discuss when she can see Dr Fonseca again. * Telephone Encounter - Niya Collazo LPN - 12/05/2024 2:24 PM EDT Call to patient to discuss recent admission/hospitalization and offer office visit. Unable to LM, VM not set up. Date of hospitalization: 12/03/24 Discharge date: 12/03/24 [place] [facility] [place] on file: Yes Discharge diagnosis: Grief and Loss, SOB Patient described events as: SOB, upset dogs , asthma and anxiety. Lingering concerns/symptoms for provider: Unable to LM. VM not set up. Medication changes: None Follow-up scheduled: Previously scheduled. Counseled on reasons for urgent evaluation while awaiting office visit documented in this encounter Plan of Treatment Upcoming Encounters Date Type Department Care Team (Late st Contact Info) Description 03/02/2025 3:45 PM EDT Office Visit [facility] [address] [place] [id number] Anitha Arizmendi NP [address] [place] [address] documented as of this encounter Visit Diagnoses Not on filedocumented in this encounter Care Teams Menhaden Vessel Pilot Relationship Specialty Start Date End Date Veronica Fonseca MD [address] [place] [phone] PCP - General Family Medicine 09/03/23 12/08/24 Anitha Arizmendi NP [address] [place] [id number] PCP - General Family Medicine 12/31/24 Savita Juárez Community Health Worker 07/23/23 Natalie Rosario Health Navigator 10/05/23 Magi Borges 01/14/25 01/21/25 documented as of this encounter
--- OUTSIDE RECORDS SUMMARY | 2025-02-12 15:50 | XMS_ITS | Encounter Summary ---
Author Organization [employer] Address [address] [facility] [address] [place] [address] Care Team Providers Care Contaminated Land Consultant Name Role Phone FranckSriSavita Unavailable Unavailable Veronica Fonseca MD Primary Care Provider [phone] Natalie Rosario Unavailable Unavailable Anitha Arizmendi NP Primary Care Provider Magi Borges Unavailable Encounter Details Date Type Department Care Team (Late st Contact Info) Description 10/10/2023 Orders Only [facility] Information Management [address] [place] [address] Veronica Fonseca MD [address] [place] [address] Social History Tobacco Use Types Packs/Day Years Used Date Smoking Tobacco: Never Assessed Comments No Sex and Gender Information Value Date Recorded Sex Assigned at Female 09/03/2023 12:09 PM EDT Legal Sex Female 10:29 AM EST Gender Identity Female 09/03/2023 12:09 PM EDT Sexual Orientation Straight 09/03/2023 12 :09 PM EDT documented as of this encounter Plan of Treatment Upcoming Encounters Date Type Department Care Team (Late st Contact Info) Description 03/02/2025 3:45 PM EDT Office Visit [facility] [address] [place], [place] [phone] Anitha Arizmendi NP [address] [place] [address] documented as of this encounter Procedures Procedure Name Priority Date/Time Associated Diagnosis Comments XR FOOT ANKLE 3 VW LEFT Routine 10/03/19 24 3:38 PM EDT CBC WITH AUTO DIFFERENTIAL Routine 10/03/2023 3:[address] ABDOMEN PELVIS W CONTRAST Routine 09/24/2023 3:37 PM EDT US ABDOMEN Routine 09/08/2023 3:36 PM EDT XR FOOT 1-2 VIEWS LEFT Routine 3:33 PM EDT documented in this encounter Results * XR FOOT ANKLE 3 VW LEFT (10/03/2023 3:38 PM EDT) Anatomical Region Laterality Modality Radiographic Jing ging us Veronica Fonseca MD IMG XR PROCEDURES Final Result * CBC auto differential (10/03/2023 3:32 PM EDT) Blood Venous blood specimen / Unknown us Veronica Fonseca MD LAB BLOOD ORDERABLES Final Res ult * CT Abdomen Pelvis w/ Contrast (09/24/2023 3:37 PM EDT) Anatomical Region Laterality Modality Body, Pelvis, Abdomen Computed T omography us Veronica Fonseca MD IMG CT PROCEDURES Final Result * US Abdomen (09/08/2023 3:36 PM EDT) Anatomical Region Laterality Modality Abdomen Ultrasound us Veronica Fonseca MD IMG US PROCEDURES Final Result * XR FOOT 1-2 VIEWS LEFT (08/30/2023 3:33 PM EDT) Anatomical Region Laterality Modality Radiographic Jing ging us Veronica Fonseca MD IMG XR PROCEDURES Final Result documented in this encounter Visit Diagnoses Not on filedocumented in this encounter Care Teams Contaminated Land Consultant Relationship Specialty Start Date End Date Veronica Fonseca MD [address] [place] [address] PCP - General Family Medicine 09/03/23 12/08/24 Anitha Arizmendi NP [address] [place] [address] [place] [address] PCP - General Family Medicine 12/31/24 Savita Juárez Community Health Worker 07/23/23 Natalie Rosario Health Navigator 10/05/23 Magi Borges 01/14/25 01/21/25 documented as of this encounter
--- OUTSIDE RECORDS SUMMARY | 2025-02-12 15:50 | XMS_ITS | Clinical Summary ---
Author Organization [facility] Address [address] [address] Phone Care Team Providers Care Order Runner Name Role Phone Veronica Fonseca MD Primary Care Provider [phone] Allergies Active Allergy Reactions Criticality Noted Date [...] 2018 ZOSTER VACCINES (1 of 2) 11/23/2023 INFLUENZA VACCINE (#1) 2024 COVID-19 VACCINE (1 - 2023-2 5 season) 2025 SCREENING FOR DIABETES 11/15/2026 11/16/2023 HEPATITIS A [...] topic Medical Devices Not on file Insurance [facility] Care Teams Order Runner Relationship Specialty Start Date End Date Veronica Fonseca MD [address] [place] [id number] PCP - General Family Medicine 11/16/23 Additional Source Comments The information contained in this document represents components of the legal health record. It is not the complete legal health record.[facility]
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
--- OUTSIDE RECORDS SUMMARY | 2025-02-12 15:50 | XMS_ITS | Encounter Summary ---
Author Organization [employer] Address [address] [facility] [address] [place] [address] Care Team Providers Care Rock Crusher Name Role Phone Franck Savita Unavailable Unavailable Veronica Fonseca MD Primary Care Provider [phone] Natalie Rosario Unavailable Unavailable Anitha Arizmendi NP Primary Care Provider [phone] Magi Borges Unavailable Encounter Details Date Type Department Care Team (Late st Contact Info) Description 02/11/2024 Orders Only [facility] Information Management [address] [place] [address] Veronica Fonseca MD [address] [place] [address] Social History Tobacco Use Types Packs/Day Years [...] Description 03/02/2025 3:45 PM EDT Office Visit [facility] [address], [place] [phone] Anitha Arizmendi NP [address] [place] [address] documented as of this encounter Procedures Procedure Name Priority Date/Time Associated Diagnosis Comments LACTIC ACID Routine 01/04/2025 11:44 PM EDT URINALYSIS, COMPLETE, WITH REFLEX TO CULTURE Routine 01/04/2025 9:01 PM EDT CULTURE, URINE, ROUTINE Routine 01/04/2025 9:01 PM EDT CBC WITH AUTO DIFFERENTIAL Routine 01/04/2025 8:26 PM EDT MAGNESIUM Routine 01/04/2025 8:26 PM EDT COMPREHENSIVE METABOLIC PANEL Routine 01/04/2025 8:26 PM EDT SARS COV2/INFLUENZA A/B AND RSV RNA QL NAAT Routine 01/04/2025 8:25 PM EDT XR ANKLE 3+ VIEWS LEFT Routine 11:45 AM EDT XR LUMBAR SPINE 2-3 VIEWS Routine 02/10/2024 11:44 AM EDT XR FOOT 1-2 VIEWS LEFT Routine 11:43 AM EDT documented in this encounter Results * Lactic Acid (01/04/2025 11:44 PM EDT) Lactic Acid 0.8 0.5 - 2.0 mmol/L [facility] 01/04/2025 11:4 4 PM EDT 01/04/2025 11:47 PM EDT us Generic External Data Provider LAB BLOOD ORDERAB LES Final Result [facility] [address] [place] [phone] * Culture, Urine, Routine (01/04/2025 9:01 PM EDT) Urine Urine specimen obtained by clean catch procedure / Unknown 01/04/2025 9:01 PM EDT 01/04/2025 9:23 PM EDT Comment:UACC Narrative [facility] - 01/06/2025 8:14 AM EDT Urine Culture Report Result Urine Culture 10,000 to 50,000 cfu/ml Urine Culture Mixed bacterial jin characteristic of Urine Culture urogenital contamination. Specimen Source: Urine clean catch Generic External Data Provider LAB MICROBIOLOGY - GENERAL ORDERABLES Final Result Performing Organization Address [facility] Co de Phone Number [facility] [address] [place] [phone] * (ABNORMAL) Urinalysis, Complete, with Reflex to Culture (01/04/2025 9:01 PM EDT) Color Urine Yellow [facility] Appearance Urine Clear [facility] PH 6.5 5.0 - 9.0 [facility] Glucose Urine UA Negative Negative mg/dL [facility] Urine Blood Negative Negative [facility] Specific [place] - Urine 1.025 1.005 - 1.025 [facility] Urine Protein Trace Neg-Trace mg/dL [facility] Urine Ketones Trace Negative mg/dL [facility] Nitrite Urine Negative Negative [facility] Leukocyte Esterase Urine Moderate (2+)(A) Negative [facility] RBC Urine 3-5(A) 0 - 2 /HPF [facility] Urine WBC 21-50(A) 0 - 5 /HPF [facility] Urine Squamous Epithelial Cell 6-10 0 - 2 /HPF [facility] Urine Bacteria 3+ None Seen [facility] Hyaline Casts, Urine 11-20 0 - 2 /LPF [facility] 01/04/2025 9:01 PM EDT 01/04/2025 9:06 PM EDT Narrative [facility] - 01/04/2025 9:22 PM EDT Urine, Clean Catch Generic External Data Provider LAB URINE ORDERAB LES Final Result Performing Organization Address [facility]/ZIP Co de Phone Number [facility] [address] [place] [phone] * Magnesium (01/04/2025 8:26 PM EDT) Magnesium 2.0 1.6 - 2.6 mg/dL [facility] 01/04/2025 8:26 PM EDT 01/04/2025 8:28 PM EDT us Generic External Data Provider LAB BLOOD ORDERAB LES Final Result [facility] [address] [place] [phone] * (ABNORMAL) Comprehensive Metabolic Panel (01/04/2025 8:26 PM EDT) Sodium 143 135 - 145 mmol/L [facility] Potassium 4.6 3.3 - 5.1 mmol/L [facility] Comment:Mild Hemolysis.Inter pret result with caution Chloride 108 96 - 108 mmol/L [facility] Carbon Dioxide 25 22 - 29 mmol/L [facility] Anion Gap 15 12 - 20 [facility] Urea Nitrogen (BUN) 13 9 - 16 mg/dL [facility] Creatinine, Serum 0.94 0.5 - 1.4 mg/dL [facility] Creatinine Clr Calc Pharmacy 92.7 [facility] Comment:Provided height and weight: 165.1 cm,121.8 kg.eGFR (calculated from the MDRD study equation) and eCrCl(calculated from the Cockcroft-Gault equation) are based ondifferent parameters and may not yield comparable results.If eCrCl result is absurd, please check patient'sheight/weight. Estimated Glomerular Filt Rate >60 [facility] Comment:Chronic Kidney Disea se: Estimated GFR < 60 mL/min/1.42m7Frxxfj Kidney Disease: Estimated GFR < 15 mL/min/1.73m2 Glucose 89 60 - 115 mg/dL [facility] Calcium 9.6 8.4 - 10.2 mg/dL [facility] Bilirubin, Total 0.7 0.0 - 1.0 mg/dL [facility] Aspartate Amino Transferase 39(H) 5 - 31 U/L [facility] Comment:Mild Hemolysis.Inter pret result with caution Alanine Aminotransferase 20 0 - 31 U/L [facility] Total Protein 8.0 6.5 - 8.0 g/dL [facility] Comment:Mild Hemolysis.Inter pret result with caution Albumin Level 4.5 3.5 - 5.0 g/dL [facility] Alkaline Phosphatase 79 39 - 117 U/L [facility] 01/04/2025 8:26 PM EDT 01/04/2025 8:28 PM EDT us Generic External Data Provider LAB BLOOD ORDERAB LES Final Result [facility] [address] [place] [phone] * CBC auto differential (01/04/2025 8:26 PM EDT) White Blood Count 7.5 4.8 - 10.8 X10*3/uL [facility] Red Blood Count 4.29 4.20 - 5.50 X10*6/uL [facility] Hemoglobin 12.9 12.0 - 16.0 g/dl [facility] Hematocrit 37.3 37.0 - 47.0 % [facility] Mean Corpuscular Volume 86.9 80.0 - 98.0 fL [facility] Mean Corpuscular Hemoglobin 30.1 27.0 - 33.0 pg [facility] Mean Corpuscular HGB Conc 34.6 31.0 - 35.0 g/dl [facility] Red Cell Distribution Width 13.2 11.0 - 16.0 % [facility] Platelet Count 176 160 - 400 X10*3/uL [facility] Mean Platelet Volume 11.4 9.4 - 12.3 fL [facility] Neutrophils Percent Auto 62.2 45 - 73 % [facility] Imm Gran Pct Auto 0.3 0.0 - 0.4 % [facility] Lymphocytes Percent Auto 29.5 20 - 40 % [facility] Monocytes Percent Auto 6.4 2 - 11 % [facility] Eosinophils Percent Auto 1.2 0 - 4 % [facility] Basophils Percent Auto 0.4 0 - 2 % [facility] NRBC Pct Auto 0.0 0.0 - 0.2 /100WBC [facility] Neutrophils Absolute Auto 4.7 2.0 - 8.3 x10*3/uL [facility] Imm Gran Abs Auto 0.02 0.00 - 0.03 X10*3/uL [facility] Lymphocytes Absolute Auto 2.2 1.2 - 4.9 X10*3/uL [facility] Monocytes Absolute Auto 0.5 0.1 - 1.2 X10*3/uL [facility] Eosinophils Absolute Auto 0.1 0.0 - 0.4 X10*3/uL [facility] Basophils Absolute Auto 0.0 0.0 - 0.2 X10*3/uL [facility] NRBC Abs Auto 0.000 0.0 - 0.012 X10*3/uL [facility] 01/04/2025 8:26 PM EDT 01/04/2025 8:28 PM EDT us Generic External Data Provider LAB BLOOD ORDERAB LES Final Result [facility] [address] [place] [phone] * SARS-CoV-2 RNA, Influenza A/B, and RSV RNA, Ql NAAT (01/04/2025 8:25 PM EDT) Influenza A PCR NEGATIVE Negative [facility] Influenza B PCR NEGATIVE Negative [facility] Resp Syncy Virus RNA Qual PCR NEGATIVE Negative [facility] SARS COV2 PCR NEGATIVE Negative [facility] Comment:All test results mus t be [...] use by authorized laboratories.Testing performed on the [employer] GeneXpert utilizingreal-time RT-PCR.All SARS CoV2 and positive influenza A/B results arereported to [facility]. 01/04/2025 8:25 PM EDT 01/04/2025 8:28 PM EDT us Generic External Data Provider LAB MICROBIOLOGY - GENERAL ORDERABLES Final Result Performing Organization Address City/State/[facility] Co de Phone Number [facility] [address] [place] [phone] * XR Ankle 3+ Views Left (02/10/2024 11:45 AM EDT) Anatomical Region Laterality Modality Lower Extremities, Ankle Left Radiogr aphic Imaging Veronica Fonseca MD IMG XR PROCEDURES Final Result * XR Lumbar Spine 2-3 Views (02/10/2024 11:44 AM EDT) Anatomical Region Laterality Modality Spine, L-spine Radiographic Jing ging Veronica Fonseca MD IMG XR PROCEDURES Final Result * XR FOOT 1-2 VIEWS LEFT (02/10/2024 11:43 AM EDT) Anatomical Region Laterality Modality Radiographic Jing ging Veronica Fonseca MD IMG XR PROCEDURES Final Result documented in this encounter Visit Diagnoses Not on filedocumented in this encounter Care Teams Rock Crusher Relationship Specialty Start Date End Date Veronica Fonseca MD [address] [place] [phone] PCP - General Family Medicine 09/03/23 12/08/24 Anitha Arizmendi NP [address] [place] [phone] PCP - General Family Medicine 12/31/24 Savita Juárez Community Health Worker 07/23/23 Natalie Rosario Health Navigator 10/05/23 Magi Borges 01/14/25 01/21/25 documented as of this encounter
== END 2025-02-12 14:51 | disposition home or self-care (01) ==
LOC: HO.HGS 13:46
PROVIDERS: PCP Nurse Practitioner Family; Visit Provider Surgery
DX: K43.9 Ventral hernia without obstruction or gangrene (principal)
CPT/HCPCS: 99213

== ENCOUNTER → 2025-02-12 13:45 | Outpatient (BNVA) | payer MEDICAID, SELFPAY | PROVIDERS: PCP Nurse Practitioner Family; Visit Provider Surgery | DX: K43.9 Ventral hernia without obstruction or gangrene (principal); Z59.01 Sheltered homelessness | CPT/HCPCS: 99212 ==